=== PATIENT | female | born 1970 | race Caucasian/White ===

== ENCOUNTER 2017-01-03 13:20 | Emergency (ER) | payer OTHER ==
[2017-01-03] MEDS ORDERED: PHENERGAN IM ONE (15:46)
[2017-01-03] MEDS ORDERED: NUBAIN IM ONE (15:46)
[2017-01-03] MEDS ORDERED: BENADRYL IM ONE (17:00)
[2017-01-03] MEDS ORDERED: TORADOL IM ONE (17:00)
--- NOTE | 2017-01-03 17:29 | PROVIDER DOCUMENTATION ---
HPI-Headache <Shakir Foster - Last Filed: 01/03/17 17:28> - General Source: patient - History of Present Illness-Headache Headache Location: reports: global Quality of Pain: reports: aching Severity: reports: mild Onset/Duration: reports: this morning Timing: reports: still present, intermittent Headache Context: reports: nothing Headache History: reports: history of migraines Any recent trauma/injury?: reports: none Headache severity at the maximum: mild Headache Exacerbated by:: reports: nothing Modifying Factors: improves with: nothing Associated Symptoms: reports: headache, nausea, vomiting. denies: short of breath, decreased ability to walk or stand, fainting, dizziness, confusion, chest pain, neck/back pain, fatigue, fever/chills, insomnia, loss of consciousness, muscle spasms, numbness in legs/feet, paresthesia, diaphoretic, ringing in ears, seizures, sleepy, slurred speech, tingling in legs/feet, trouble walking, vision changes, weakness Similar Symptoms Previously?: Yes Recently seen or treated by another doctor?: No <Maritza Mims - Last Filed: 01/03/17 17:34> - General Chief Complaint: Headache Stated Complaint: HEADACHE Time Seen by Provider: 01/03/17 14:50 Allergies/Adverse Reactions: Patient Allergies Allergy/AdvReac Type Severity Reaction Status Date / Time ciprofloxacin [From Cipro] Allergy Severe ANAPHYLAXIS Verified 05/14/16 07:54 ciprofloxacin HCl * Allergy Severe ANAPHYLAXIS Verified 05/14/16 07:54 [From Cipro] Sulfa (Sulfonamide Allergy Severe ANAPHYLAXIS Verified 05/14/16 07:54 Antibiotics) [Sulfa(Sulfonamide Antibiotics)] Home Medications: Home Medication List Medication Instructions Recorded Confirmed Last Taken Type Carbamazepine [Tegretol] 200 mg PO QAM 09/09/12 05/14/16 05/14/16 06:00 History Clonazepam [Klonopin] 1.5 mg PO TID PRN 09/09/12 05/14/16 05/14/16 06:00 History Furosemide [Lasix] 20 mg PO DAILY 09/09/12 05/14/16 05/14/16 06:00 History Gemfibrozil [Lopid] 600 mg PO BID 09/09/12 05/14/16 05/14/16 06:00 History Levothyroxine [Synthroid] 50 microgm PO DAILY 09/09/12 05/14/16 05/14/16 06:00 History Metformin E.r. [Glucophage Xr] 1,000 mg PO HS 09/09/12 05/14/16 05/13/16 19:00 History Metoprolol Succinate E.r. [Toprol 12.5 mg PO DAILY 09/09/12 05/14/16 05/14/16 06 :00 History Xl] PRAVAstatin [Pravachol] 20 mg PO QHS 09/09/12 05/14/16 05/13/16 19:00 History Carbamazepine [Tegretol] 400 mg PO HS 07/13/13 05/14/16 05/13/16 19:00 History Omeprazole [Prilosec] 40 mg PO QPM 02/02/15 05/14/16 05/14/16 06:00 History Aspirin 81 mg PO QAM 05/31/15 05/14/16 05/14/16 06:00 History Bupropion HCl [Wellbutrin Xl] 300 mg PO QAM 05/31/15 05/14/16 05/14/16 06:00 History Calcium Carbonate/Vit D3 [Caltrate 1 each PO BID 05/31/15 05/14/16 05/14/16 06: 00 History 600 + D] Cholecalciferol (Vitamin D3) 2,000 unit PO BID 05/31/15 05/14/16 05/14/16 06:00 History [Vitamin D3] Losartan [Cozaar] 50 mg PO DAILY 05/31/15 05/14/16 05/13/16 19:00 History Mirtazapine [Remeron] 15 mg PO QHS 05/31/15 05/14/16 05/13/16 19:00 History Montelukast Sodium [Singulair] 10 mg PO DAILY 05/31/15 05/14/16 05/14/16 06:00 History Ranitidine HCl [Zantac] 150 mg PO 1200 05/31/15 05/14/16 05/13/16 19:00 History Sucralfate [Carafate] 1 gm PO 4XDAY 05/31/15 05/14/16 05/14/16 06:00 History Topiramate [Topamax] 150 mg PO QHS 05/31/15 05/14/16 05/13/16 19:00 History Tizanidine HCl [Zanaflex] 12 mg PO QHS 08/20/15 05/14/16 05/13/16 19:00 History Cyclobenzaprine [Flexeril] 10 mg PO TID #20 tablet 05/14/16 Unknown Rx Insulin Degludec [Tresiba 54 unit SQ DAILY 05/14/16 05/14/16 05/14/16 06:00 History Flextouch U-100] Meloxicam [Mobic] 7.5 mg PO DAILY PRN PRN #15 tablet 05/14/16 Unknown Rx Prochlorperazine Maleate 5 mg PO Q4H PRN PRN #10 tablet 01/03/17 Unknown Rx [Compazine] - History of Present Illness-Headache Nature of Presenting Problem: Pt is 46 y/o F presents to the ED with migraine. Pt states hx of migraines. Pt states taking meds with no relief. Pt states N and V (Maritza Mims) Review of Systems - Adult - REVIEW OF SYSTEMS - ADULT Constitutional: reports: no symptoms reported Eyes: reports: no symptoms reported Ears, Nose, Mouth & Throat: reports: no symptoms reported Cardiovascular: reports: no symptoms reported Respiratory: reports: no symptoms reported Gastrointestinal: reports: nausea, vomiting. denies: diarrhea Genitourinary: reports: no symptoms reported Musculoskeletal: reports: no symptoms reported Integumentary: reports: no symptoms reported Neurological: reports: headache/migraines (SCHAFER). denies: dizziness/vertigo, syncope Psychiatric: reports: no symptoms reported Endocrine: reports: no symptoms reported Hematologic/Lymphatic: reports: no symptoms reported Allergic/Immunologic: reports: no symptoms reported All Other Systems: Reviewed and Negative <Maritza Mims - Last Filed: 01/03/17 17:34> Past History - Adult - PAST MEDICAL HISTORY-ADULT Major Childhood Illnesses: reports: denies history Cardiovascular: reports: HTN, hyperlipidemia Respiratory: reports: COPD Gastrointestinal: reports: GERD Obstetrical/Gynecological: reports: denies history Genitourinary: reports: denies history Musculoskeletal: reports: denies history Neurological: reports: headaches/migraines Psychiatric: reports: anxiety, depression, psychiatric problems Endocrine/Immune: reports: Diabetes Other Conditions: reports: denies history - PRIOR SURGERIES/PROCEDURES Surgical/Procedure History: reports: appendectomy, cholecystectomy, hysterectomy - IMMUNIZATION STATUS Childhood Immunizations: See Nurse Assessment Flu Vaccine: See Nurse Assessment - FAMILY HISTORY Family History: reviewed, not pertinent <Shakir Foster - Last Filed: 01/03/17 17:28> - PAST MEDICAL HISTORY-ADULT Review of Records: reports: Nursing Assessment Review, Medications Reviewed, Social history reviewed & non-contributory. Major Childhood Illnesses: reports: denies history Cardiovascular: reports: HTN, hyperlipidemia Respiratory: reports: COPD Gastrointestinal: reports: GERD Obstetrical/Gynecological: reports: denies history Genitourinary: reports: denies history Musculoskeletal: reports: denies history Neurological: reports: headaches/migraines Psychiatric: reports: anxiety Endocrine/Immune: reports: Diabetes Other Conditions: reports: denies history - PRIOR SURGERIES/PROCEDURES Surgical/Procedure History: reports: reviewed, not pertinent, appendectomy, cholecystectomy, hysterectomy - IMMUNIZATION STATUS Childhood Immunizations: See Nurse Assessment Flu Vaccine: See Nurse Assessment - FAMILY HISTORY Family History: reviewed, not pertinent - SOCIAL HISTORY Smoking: cigarettes, less than 1 pack/day Provider spent 3-5 mins advising pt. on dangers of tobacco.: Discussed manners to quit use, and f/u contacts for add'l counseling. Substance Use: denies Living Situation: family <Maritza Mims - Last Filed: 01/03/17 17:34> Physical Exam- Neurological - Physical Exam-Neuro Initial Vital Signs Reviewed: Yes General Appearance: appears well, alert, no apparent distress Eye Exam: bilateral eye: normal inspection, PERRL, EOMI HENMT: normocephalic/atraumatic, moist mucous membranes, normal ENT inspection, TMs normal, pharynx normal Head Injury: no evidence of injury Neck: non-tender, full range of motion, supple, normal inspection Respiratory: chest non-tender, lungs clear, normal breath sounds, no pleuratic chest pain, no respiratory distress, no accessory muscle use Cardiovascular: normal peripheral pulses, regular rate, rhythm, no edema, no gallop, no JVD, no murmur Abdominal Exam: normal bowel sounds, non tender, soft, no organomegaly, no pulsatile mass Lymphatic: no adenopathy Extremity: normal range of motion, non-tender, normal gait, normal inspection, no pedal edema, 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 Exam: normal hearing, normal speech, PERRL Coordination/Gait: normal finger to nose, normal gait Motor/Sensory: no motor deficit, no sensory deficit, no pronator drift Neurologic: maintenance team leader II-XII nml as tested, grossly normal, no motor/sensory deficits Integumentary: normal color, normal turgor, warm/dry Psych/Mental Status: normal mood/affect, normal thought content, oriented x 3 <Maritza Mims - Last Filed: 01/03/17 17:34> Progress <Shakir Foster - Last Filed: 01/03/17 17:28> <Maritza Mims - Last Filed: 01/03/17 17:34> - PLAN OF CARE/RESULTS Progress/Plan/Lab Results: Orders Category Date Time Status Diphenhydramine [Benadryl] Med 01/03/17 17:00 Discontinued 25 mg IM NOW ONE Ketorolac [Toradol] Med 01/03/17 17:00 Discontinued 30 mg IM NOW ONE Nalbuphine [Nubain] Med 01/03/17 15:46 Discontinued 20 mg IM NOW ONE Promethazine [Phenergan] Med 01/03/17 15:46 Discontinued 25 mg IM NOW ONE Vital Signs - 24 hr 01/03/17 13:24 Temperature 97.6 F Pulse Rate 65 Respiratory 18 Rate Blood Pressure 125/072 O2 Sat by Pulse 98 Oximetry (Maritza Mims) Departure - Departure Time of Disposition Order: 17:28 Certified Medical Emergency: Urgent <Shakir Foster - Last Filed: 01/03/17 17:28> - Departure Time of Disposition Order: 17:34 Certified Medical Emergency: Emergent <Maritza Mims - Last Filed: 01/03/17 17:34> - Departure DIAGNOSIS: Migraine Qualifiers: Migraine type: unspecified Status migrainosus presence: without status migrainosus Intractability: not intractable Qualified Code(s): G43.909 - Migraine, unspecified, not intractable, without status migrainosus Disposition: HOME 01 Condition: Good Additional Instructions: Take medication as prescribed. Follow up with your primary care provider or neurologist. ED Follow Up Instructions: You have been treated by a care provider in the Emergency Department. These instructions are being provided to you so you can have an understanding of how to care for yourself upon discharge. Upon discharge from the Emergency Department, you are responsible for making arrangements for follow-up care by a physician of your choice. Take all prescribed medications as directed. Return to the Emergency Department immediately for any new or worsening symptoms. You may call the Physician Referral phone number at [phone] to obtain a list of Physicians who are taking new patients. Prescriptions: Prochlorperazine Maleate [Compazine] 5 mg PO Q4H PRN PRN #10 tablet PRN Reason: Headaches Referrals: Nate Samuel MD [Primary Care Provider] - [place] Antoine ZHENG MD [STAFF PHYSICIAN] - Attestation - Physician/ ELSIE Attestation Patient care was provided by Advanced Practice Provider:: Yes Advanced Practice Provider:: Shakir Foster Advanced Practice Provider documentation review:: The Mid-level provider documentation, treatment plan and medical decision making was reviewed by the physician who agrees with all treatment and medical decision making by the MLP. <Shakir Foster - Last Filed: 01/03/17 17:28> - Scribe Verification/Attestation Scribe:: Maritza Mims Acting as Scribe for:: Shakir Foster Scribe documention review:: This chart was documented by a scribe and accurately reflects the service the provider performed and the decisions made by the provider. <Maritza Mims - Last Filed: 01/03/17 17:34> Physician Attestation
[2017-01-03 18:13] VITALS: BP 144/68
== END 2017-01-03 18:12 | disposition home or self-care (01) ==
LOC: P.ED 13:20
DX: G43.909 Migraine, unspecified, not intractable, without status migrainosus (principal); R51 Headache; R11.2 Nausea with vomiting, unspecified; I10 Essential (primary) hypertension; E78.5 Hyperlipidemia, unspecified; J44.9 Chronic obstructive pulmonary disease, unspecified; K21.9 Gastro-esophageal reflux disease without esophagitis; E11.9 Type 2 diabetes mellitus without complications; F41.9 Anxiety disorder, unspecified; F32.9 Major depressive disorder, single episode, unspecified; F17.210 Nicotine dependence, cigarettes, uncomplicated; Z79.82 Long term (current) use of aspirin; Z79.4 Long term (current) use of insulin; Z79.899 Other long term (current) drug therapy; Z71.6 Tobacco abuse counseling
CPT/HCPCS: 96372; J1200; J1885; J2300; J2550

== ENCOUNTER 2017-04-07 11:07 | Inpatient (IN) ==
[2017-04-07 11:45] LABS: MANUAL DIFF NEEDED? NO
[2017-04-07 11:50] LABS: BASO% 0.1 % (0.0-0.8); EOS# 0.08 X1000 (0.0-0.7); EOS% 0.9 % (0.0-10.0); HEMATOCRIT 38.7 % (37.0-47.0); HEMOGLOBIN 13.3 g/dL (12.0-16.0); IMM GRAN# 0.02 X1000 (0.0-0.04); IMM GRAN% 0.2 % (0.0-0.5); LYMPH# 1.99 X1000 (1.2-3.4); LYMPH% 22.9 % (20.5-51.1); MCH 30.6 PG (27-31); MCHC 34.4 g/dL (33-37); MONO# 0.45 X1000 (0.11-0.59); MONO% 5.2 % (1.7-9.3); MPV 11.2 FL (7.4-10.4); NEUT% 70.7 % (42.2-75.2); PLT 240 X1000 (130-400); RBC 4.35 XMIL (4.2-5.4)
[2017-04-07 11:59] LABS: INR 1.04; PTT 28.8 Seconds (22.0-36.0)
[2017-04-07 12:13] LABS: AGAP 13; ALBUMIN 4.3 g/dL (3.5-5.0); ALKALINE PHOSPHATASE 63 U/L (32-104); BUN 5 mg/dL (8-22); CALCIUM 9.5 mg/dL (8.8-10.2); CHLORIDE 104 mmol/L (98-107); CK PROFILE 18 U/L (24-173); COSMO 274; GOT 26 U/L (10-30); GPT 20 U/L (10-36); POTASSIUM 3.8 mmol/L (3.5-5.1); SODIUM 138 mmol/L (136-145); TCO2 21 mmol/L (25-35); TOTAL BILIRUBIN 0.33 mg/dL (0.20-1.00); TOTAL PROTEIN 6.8 g/dL (6.3-8.3)
[2017-04-07] MEDS ORDERED: NS 1,000 ML IV ONE ×2 (13:14→17:07)
[2017-04-07 13:51] LABS: URINE CULTURE NEEDED? NO; URINE MICRO REVIEW NEEDED? NO; URINE SOURCE CLEAN CATCH
[2017-04-07 13:57] LABS: BILIRUBIN URINE NEGATIVE (NEGATIVE); BLOOD URINE NEGATIVE (NEGATIVE); COLOR YELLOW; GLUCOSE URINE NEGATIVE (NEGATIVE); LEUKOCYTES URINE NEGATIVE (NEGATIVE); NITRITE URINE NEGATIVE (NEGATIVE); PROTEIN URINE NEGATIVE (NEGATIVE); TURBIDITY URINE CLEAR (CLEAR); UR EPITHELIAL CELLS <10 /HPF (<10); URINE BACTERIA NEGATIVE /HPF; URINE RBC <10 /HPF (<10); URINE WBC <10 /HPF (<10); UROBILINOGEN URINE NORMAL (NORMAL)
[2017-04-07 14:06] LABS: UR AMPHETAMINES QUAL NONE DETECTED (NONE DETECT); UR BARBITUATES QUAL NONE DETECTED (NONE DETECT); UR BENZODIAZEPIN QUAL NONE DETECTED (NONE DETECT); UR CANNABINOIDS QUAL NONE DETECTED (NONE DETECT); UR COCAINE QUAL NONE DETECTED (NONE DETECT); UR METHADONE QUAL NONE DETECTED (NONE DETECT); UR OPIATES QUAL NONE DETECTED (NONE DETECT); UR OXYCODONE QUAL NONE DETECTED (NONE DETECT); UR PCP QUAL NONE DETECTED (NONE DETECT)
[2017-04-07] MEDS ORDERED: TYLENOL PO ONE (14:33)
--- NOTE | 2017-04-07 15:26 | Diag Imaging Result Doc PS360 ---
EXAM: HEAD/C-SPINE W/O CONTRAST HISTORY: syncope TECHNIQUE: CT of the head without contrast; CT of the cervical spine, dose reduction (clarity.) COMMENT: There is generalized cerebral atrophy. This was also the case on 03/30/2017. There is no evidence of mass effect bleed or abnormal extra-axial fluid collection. There are no acute bony abnormalities. The paranasal sinuses are clear where there are visible. CT of the cervical spine: There is been anterior fusion at C6-7. There is no evidence of prevertebral soft tissue swelling fracture or subluxation. The appearance of the cervical spine has not changed significantly since 03/30/2017. IMPRESSION: No acute intracranial disease. Stable cervical spine. Electronically signed by Pablo Barnes 04/07/2017 3:24 PM
[2017-04-07] MEDS ORDERED: MORPHINE IV PRN ×2 (17:07→18:54)
[2017-04-07] MEDS ORDERED: TYLENOL PO PRN (17:07)
[2017-04-07] MEDS: NICODERM PATCH TD SCH (19:59)
[2017-04-07] MEDS: PROTONIX IV SCH (20:00)
[2017-04-07] MEDS: CITRACAL + D PO SCH (20:00)
[2017-04-07] MEDS: NORCO-5 PO PRN (20:00)
[2017-04-07] MEDS: LOPID PO SCH (20:00)
[2017-04-07] MEDS: SODIUM CHLORIDE 0.9% INJ SCH (20:00)
[2017-04-07] MEDS: PRAVACHOL PO SCH (20:00)
[2017-04-07] MEDS: TOPAMAX PO SCH (20:00)
[2017-04-07] MEDS: KLOR-CON PO SCH (20:01)
[2017-04-07] MEDS: NON-FORMULARY MED PO SCH (20:13)
[2017-04-07] MEDS: KLONOPIN PO PRN (20:13)
--- NOTE | 2017-04-07 20:24 | Diag Imaging Result Doc PS360 ---
EXAM: CHEST-PORTABLE HISTORY: sob TECHNIQUE: AP Portable at 1908 COMMENT: there is no evidence of acute cardiac or pulmonary disease. Compared to 08/20/2015 there is been no significant change. IMPRESSION: Stable chest Electronically signed by Pablo Barnes 04/07/2017 8:22 PM
--- NOTE | 2017-04-07 20:50 | HISTORY AND PHYSICAL ---
CHIEF COMPLAINT: Syncope. HISTORY OF PRESENT ILLNESS: Ms. Noel is a 46-year-old, white female patient who was in her usual state of health this morning. The patient claims she woke up not feeling well. She checked her blood sugar and it was 126. The patient was feeling uneasy. She drank some coffee. Patient claims she vomited. She was feeling dizzy, lightheaded. She checked her blood sugar again and it was 145. The patient was going to the kitchen to get something to drink. The next thing the patient remembers was she was on the floor. According to family member, the patient fell and passed out. She stopped breathing. One of the family members called EMS. She started doing CPR and patient start breathing. Duration is not properly known. May be from many seconds to few minutes. The patient is complaining of chest pain which she described as retrosternal heaviness and pressure like. She did have shortness of breath. The patient denied any diaphoresis. No radiation of pain into the arm. Her risk factors include hyperlipidemia, smoker, surgical menopause, diabetes, patient was also complaining of abdominal pain, nausea, vomiting. The patient does have gastroparesis. She denied any diarrhea, blood or mucus in the stool. No dysuria or hematuria. No vaginal discharge, spotting, bleeding. She does have at times constipation. No major weight loss or weight gain. No heat or cold intolerance. The patient had significant problem with hypoglycemia. She was on Glucophage and insulin. I stopped both of her medicine and lately her blood sugar is doing better. The patient does have multiple episodes of falls. She does have a dull headache. The patient has a history of anxiety, depression, mood disorder, being followed up by a psychiatrist on multiple psychotropic medications. The patient had a fall a few days ago. Complaining of low back pain. No diplopia. Denied any neck stiffness. No joint swelling or redness. No further history available at this time. ALLERGIES: Cipro and sulfa. PAST MEDICAL HISTORY: Diabetes mellitus. It was poorly controlled, but lately patient is more hypoglycemic. Hyperlipidemia. Hypothyroidism. Depression. Bipolar disorder. Anxiety. Gastritis. Gastroparesis. PAST SURGICAL HISTORY: Patient had appendectomy, cholecystectomy, hysterectomy, bilateral breast reduction, wrist surgery, et cetera. PERSONAL HISTORY: . Lives with her . Does smoke. Denied alcohol or substance abuse. The patient is on disability. HOME MEDICATION: Vitamin D. Diclofenac. Lasix. Beta-palak. Robaxin. [place]. Prilosec. Phenergan. Seroquel. Trazodone. Aspirin. Buspar. Caltrate D. Klonopin. Lopid. Synthroid. Singulair. Potassium. Pravachol. Zantac. Topamax. Trintellix. FAMILY HISTORY: Significant for diabetes mellitus, COPD, hypertension, hyperlipidemia. PHYSICAL EXAMINATION: GENERAL: Middle-aged white female patient in mild distress. VITAL SIGNS: In the emergency room, blood pressure was 133/87, pulse 56, respirations 16, temperature 97.7 degrees. In the ER, her heart rate was staying in 40s. HEENT: Head atraumatic, normocephalic. [place] conjunctivae. Anicteric sclerae. Extraocular muscle movement normal. Fundus cannot be penetrated. Good oral hygiene. No tonsillopharyngeal congestion or exudate. Ears and nose benign. NECK: Supple. No JVD, thyromegaly or lymphadenopathy. CHEST: Bibasilar crepitation. No rales. CARDIOVASCULAR: S1 and S2 heard. Bradycardia. No gallop or thrill. ABDOMEN: Soft, globular. Mild epigastric tenderness. No guarding or rigidity. EXTREMITIES: No cyanosis, clubbing. No acute DVT. 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 Crepitation both knee joints. Vague tenderness lumbosacral spine. CONSIDERATION: Patient admitted with syncope. Was She found to have bradycardia. History of diabetes mellitus, hyperlipidemia, multiple psychotropic medications, hypothyroidism. PLAN: Admit the patient. Telemetry monitoring. The patient did have chest pain with multiple risk factors. I am going to get Cardiology consult. Overall plan discussed at length with the patient. Encouraged smoking cessation. Fall precaution. We will try a NicoDerm patch. Pain management. The patient had CT scan of the neck and head done and results reviewed. cc: Nate Samuel MD
[2017-04-07] MEDS: LOVENOX SUBQ SCH (21:25)
[2017-04-08 05:08] LABS: MANUAL DIFF NEEDED? NO
[2017-04-08 05:24] LABS: EOS# 0.06 X1000 (0.0-0.7); EOS% 1.2 % (0.0-10.0); HEMATOCRIT 35.4 % (37.0-47.0); HEMOGLOBIN 11.8 g/dL (12.0-16.0); LYMPH# 1.58 X1000 (1.2-3.4); LYMPH% 30.9 % (20.5-51.1); MCH 29.7 PG (27-31); MCHC 33.3 g/dL (33-37); MCV 89.2 FL (81-99); MONO# 0.29 X1000 (0.11-0.59); MONO% 5.7 % (1.7-9.3); MPV 11.3 FL (7.4-10.4); NEUT% 62.2 % (42.2-75.2); PLT 205 X1000 (130-400); RBC 3.97 XMIL (4.2-5.4)
--- NOTE | 2017-04-08 05:38 | EKG Report ---
Test Performed on : 04/07/2017 1:38:47 PM Test Reason : AMS Blood Pressure : / mmHG Vent. Rate : 053 BPM Atrial Rate : 053 BPM P-R Int : 144 ms QRS Dur : 082 ms QT Int : 426 ms P-R-T Axes : 036 011 259 degrees QTc Int : 399 ms Sinus bradycardia. with sinus arrhythmia. T wave abnormality, consider inferior ischemia Abnormal ECG When compared with ECG of 07-APR-2017 11:09, (Unconfirmed) No significant change was found Unconfirmed Result
--- NOTE | 2017-04-08 05:38 | EKG Report ---
Test Performed on : 04/07/2017 11:09:07 AM Test Reason : No order in [place] Blood Pressure : / mmHG Vent. Rate : 051 BPM Atrial Rate : 051 BPM P-R Int : 158 ms QRS Dur : 078 ms QT Int : 432 ms P-R-T Axes : 015 -03 -71 degrees QTc Int : 398 ms Sinus bradycardia. with sinus arrhythmia. Nonspecific ST and T wave abnormality Abnormal ECG When compared with ECG of 23-AUG-2015 16:13, T wave inversion more evident in Inferior leads T wave inversion now evident in Anterior leads QT has shortened Unconfirmed Result
[2017-04-08 05:52] LABS: AGAP 14; ALBUMIN 3.8 g/dL (3.5-5.0); ALKALINE PHOSPHATASE 52 U/L (32-104); BUN 5 mg/dL (8-22); CALCIUM 8.9 mg/dL (8.8-10.2); CHLORIDE 110 mmol/L (98-107); COSMO 283; GOT 24 U/L (10-30); GPT 21 U/L (10-36); MAGNESIUM 1.7 mg/dL (1.5-2.7); POTASSIUM 3.7 mmol/L (3.5-5.1); SODIUM 143 mmol/L (136-145); TCO2 19 mmol/L (25-35); TOTAL BILIRUBIN 0.32 mg/dL (0.20-1.00); TOTAL PROTEIN 5.9 g/dL (6.3-8.3)
--- NOTE | 2017-04-08 07:20 | PROGRESS NOTE ---
DATE: 04/08/2017 SUBJECTIVELY: Ms. Noel is feeling some better. Dull headache. No typical chest pain or palpitations. Denied any nausea or vomiting. No seizure-type activity. Denied abdominal pain. No dysuria or hematuria. Patient admitted with syncopal episode. She also had some chest pain. OBJECTIVE: Vital Signs: Noted. Neck: Supple. No JVD. Lungs: Bibasilar crepitation. Heart: S1 and S2 heard. Abdomen: Soft, globular. Bowel sounds present. Extremities: No cyanosis, clubbing. No acute DVT. 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 Able to move all 4 limbs. LAB DATA: Done today, hemoglobin 11.8, hematocrit 35.4, WBC count 5.12. Electrolytes are fairly benign. Urine drug screen was negative. CONSIDERATIONS: Syncope: 1. Chest pain. 2. Myocardial infarction, ruled out by negative cardiac isoenzymes. 3. Diabetes mellitus. 4. Her beta palak. He is on hold. The patient had bradycardia. 5. Depression being followed up by psychiatrist, on multiple medications. 6. Gastritis and gastroparesis. We will continue current treatment. 7. Cardiology consult. 8. Echocardiogram. 9. Orthostatic vital signs. PLAN: Overall plan discussed with the patient. She is in agreement. cc: Nate Samuel MD
[2017-04-08] MEDS: WELLBUTRIN XL PO SCH (08:44)
[2017-04-08] MEDS: LOPID PO SCH ×2 (08:45→20:38)
[2017-04-08] MEDS: KLOR-CON PO SCH ×2 (08:45→20:38)
[2017-04-08] MEDS: ASPIRIN PO SCH (08:45)
[2017-04-08] MEDS: CITRACAL + D PO SCH ×2 (08:46→20:38)
[2017-04-08] MEDS: KLONOPIN PO PRN ×2 (08:46→16:04)
[2017-04-08] MEDS: SYNTHROID PO SCH (08:46)
[2017-04-08] MEDS: SINGULAIR PO SCH (08:46)
--- NOTE | 2017-04-08 10:19 | EKG Report ---
Test Performed on : 04/08/2017 06:58:24 AM Test Reason : CP Blood Pressure : / mmHG Vent. Rate : 046 BPM Atrial Rate : 046 BPM P-R Int : 144 ms QRS Dur : 080 ms QT Int : 476 ms P-R-T Axes : 020 -05 -24 degrees QTc Int : 416 ms Sinus bradycardia. Nonspecific T wave abnormality Abnormal ECG When compared with ECG of 07-APR-2017 13:38, Nonspecific T wave abnormality, improved in Lateral leads Confirmed by Elvis VALDEZ, Ricardo Olvera ([id number]) on 04/11/2017 12:37:58 PM
--- NOTE | 2017-04-08 11:00 | PROVIDER DOCUMENTATION ---
This chart was entered by Daniela Fallon Scribe, acting as scribe for Maik Stovall MD. HPI-Syncope/Dizziness - General Chief Complaint: Syncope Stated Complaint: syncope Time Seen by Provider: 04/07/17 11:28 Source: patient, family, EMS Allergies/Adverse Reactions: Patient Allergies Allergy/AdvReac Type Severity Reaction Status Date / Time ciprofloxacin [From Cipro] Allergy Severe ANAPHYLAXIS Verified 03/30/17 16:46 ciprofloxacin HCl * Allergy Severe ANAPHYLAXIS Verified 03/30/17 16:46 [From Cipro] Sulfa (Sulfonamide Allergy Severe ANAPHYLAXIS Verified 03/30/17 16:46 Antibiotics) [Sulfa(Sulfonamide Antibiotics)] Home Medications: Home Medication List Medication Instructions Recorded Confirmed Last Taken Type Clonazepam [Klonopin] 0.5 mg PO TID PRN 09/09/12 04/07/17 04/06/17 History Furosemide [Lasix] 20 mg PO DAILY 09/09/12 04/07/17 04/06/17 History Gemfibrozil [Lopid] 600 mg PO BID 09/09/12 04/07/17 04/06/17 History Levothyroxine [Synthroid] 50 microgm PO DAILY 09/09/12 04/07/17 04/06/17 History Metoprolol Succinate E.r. [Toprol 12.5 mg PO DAILY 09/09/12 04/07/17 04/06/17 History Xl] PRAVAstatin [Pravachol] 20 mg PO QHS 09/09/12 04/07/17 04/06/17 History Aspirin 81 mg PO QAM 05/31/15 04/07/17 04/06/17 History Bupropion HCl [Wellbutrin Xl] 300 mg PO QAM 05/31/15 04/07/17 04/06/17 History Cholecalciferol (Vitamin D3) 1,000 unit PO BID 05/31/15 04/07/17 04/06/17 History [Vitamin D3] Montelukast Sodium [Singulair] 10 mg PO DAILY 05/31/15 04/07/17 04/06/17 History Ranitidine HCl [Zantac] 150 mg PO 1200 05/31/15 04/07/17 04/06/17 History Topiramate [Topamax] 100 mg PO QHS 05/31/15 04/07/17 04/06/17 History Promethazine [Phenergan] 1 tab PO TID 03/04/17 04/07/17 04/06/17 History Quetiapine [Seroquel] 1 tab PO QHS 03/04/17 04/07/17 04/06/17 History Trazodone [Desyrel] 2 tab PO QHS 03/04/17 04/07/17 04/06/17 History Omeprazole 20 mg PO DAILY #20 tablet. 03/13/17 04/07/17 04/06/17 Rx Calcium Citrate/Vitamin D3 1 each PO BID 03/30/17 04/07/17 04/06/17 History [Calcium Citrate - Vit D3 Tab] Diclofenac Sodium 50 mg PO BID #30 tablet. 03/30/17 04/07/17 04/06/17 Rx Methocarbamol [Robaxin] 500 mg PO TID #30 tablet 03/30/17 04/07/17 04/06/17 Rx Potassium Chloride [Klor-Con M20] 20 meq PO BID 03/30/17 04/07/17 04/06/17 History Vortioxetine Hydrobromide 20 mg PO QHS 03/30/17 04/07/17 04/06/17 History [Trintellix] - History of Present Illness-Syncope/Dizzy Nature of Presenting Problem: PT IS A 46YOF PRESENTING TO THE ED C/O SYNCOPE. PTS FAMILY STATES THAT PT STATED SHE FELT FAINT AND STARTED TOWARDS THE SINK AND "FELL OUT" FAMILY WENT OVER TO PT AND WAS UNABLE TO GET HER TO RESPOND SO SHE HIT PT MEDIC ALERT [place] AND HAD EMS ENROUTE. ACCORDING TO THE FAMILY PT WAS NOT BREATHING AND DISPATCH HAD HER START CPR, PTS FAMILY DID CPR FOR SEVERAL MINUTES AND PT WOKE WITH AMS. PTS FAMILY SPOKE FOR HER AND STATED SHE HAS A SCHAFER, NAUSEA, AND CHEST PAIN FROM CPR. PT ACTING THOUGH SHE IS UNABLE TO COMMUNICATE UPON EXAM, PTS RN REPORTED THAT WHEN SHE REQUESTED A URINE SAMPLE PT HAD NO PROBLEM SPEAKING AND TOLD HER "GOOD LUCK COLLECTING A UA BC SHE WASN'T GETTING CATH AND SHE WASN' T GIVING A SAMPLE AT ALL." NO OTHER COMPLAINTS AT THIS TIME If witnessed syncope, by whom?: FAMILY AT BEDSIDE Prior Episodes: reports: recent history Onset/Duration: reports: just prior to arrival Timing: reports: still present, intermittent Position/Activity at time of episode: reports: standing Symptoms prior to episode: reports: headache, lightheaded Duration of preceding symptoms? (mins): 2 Context: reports: lost consciousness, became unresponsive, lost pulse ( QUESTIONABLE) Loss of Consciousness: prolonged (minutes) (2) Location of injury. (If syncope resulted in an injury.): reports: none Current Symptoms: reports: short of breath, weakness, headache Recently Seen Here or By Another Healthcare Provider: No Review of Systems - Adult - REVIEW OF SYSTEMS - ADULT Constitutional: reports: no symptoms reported Eyes: reports: no symptoms reported Ears, Nose, Mouth & Throat: reports: no symptoms reported Cardiovascular: reports: see HPI, chest pain (FROM CPR). denies: heart murmur, palpitations Respiratory: reports: no symptoms reported Gastrointestinal: reports: no symptoms reported Genitourinary: reports: no symptoms reported Musculoskeletal: reports: no symptoms reported Integumentary: reports: no symptoms reported Neurological: reports: see HPI, headache/migraines, syncope. denies: numbness, tremors Psychiatric: reports: see HPI, anxiety, anti-depressant use, depression, emotional problems, panic attacks. denies: suicidal thoughts Endocrine: reports: no symptoms reported Hematologic/Lymphatic: reports: no symptoms reported Allergic/Immunologic: reports: no symptoms reported All Other Systems: Reviewed and Negative Past History - Adult - PAST MEDICAL HISTORY-ADULT Review of Records: reports: Old Records Reviewed, Nursing Assessment Review, Medications Reviewed, Social history reviewed & non-contributory. Major Childhood Illnesses: reports: denies history Cardiovascular: reports: HTN, hyperlipidemia Respiratory: reports: COPD Gastrointestinal: reports: GERD Obstetrical/Gynecological: reports: denies history Genitourinary: reports: denies history Musculoskeletal: reports: denies history Neurological: reports: headaches/migraines Psychiatric: reports: anxiety Endocrine/Immune: reports: Diabetes Other Conditions: reports: denies history - PRIOR SURGERIES/PROCEDURES Surgical/Procedure History: reports: reviewed, not pertinent, appendectomy, cholecystectomy, hysterectomy - IMMUNIZATION STATUS Childhood Immunizations: See Nurse Assessment Flu Vaccine: See Nurse Assessment - FAMILY HISTORY Family History: reviewed, not pertinent - SOCIAL HISTORY Smoking: cigarettes, less than 1 pack/day Provider spent 3-5 mins advising pt. on dangers of tobacco.: Discussed manners to quit use, and f/u contacts for add'l counseling. Substance Use: denies Alcohol Use Frequency: never Living Situation: family Physical Exam-General - PHYSICAL EXAM-ADULT Initial Vital Signs Reviewed: Yes - CONSTITUTIONAL General Appearance: appears well, alert, moderate distress, obtunded - EYES Eyes: PERRL/EOMI, pink conjunctivae - HEAD, EARS, NOSE, MOUTH & THROAT HENMT: normocephalic/atraumatic, moist mucous membranes, normal ENT inspection, TMs normal, pharynx normal - NECK Neck: non-tender, full range of motion, supple, normal inspection - RESPIRATORY Respiratory: lungs clear, normal breath sounds, no respiratory distress, no accessory muscle use, other (PAIN DUE TO FAMILY DOING CPR). negative: chest non -tender, no pleuratic chest pain - CARDIOVASCULAR Cardiovascular: normal peripheral pulses, no edema, no gallop, no JVD, no murmur , bradycardia. negative: regular rate, rhythm - GASTROINTESTINAL (ABDOMEN) Abdominal Exam: normal bowel sounds, non tender, soft, no organomegaly, no pulsatile mass - LYMPHATIC Lymphatic: no adenopathy - MUSCULOSKELETAL Back Exam: normal inspection, no CVA tenderness, no vertebral tenderness Extremity: normal range of motion, no pedal edema, no calf tenderness, normal capillary refill, pelvis stable. 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, grossly normal, no motor/sensory deficits - PSYCHIATRIC Psych/Mental Status: normal mood/affect, normal thought content, normal thought process, oriented x 3 Progress - PLAN OF CARE/RESULTS Progress/Plan/Lab Results: Vital Signs - 8 hr 04/07/17 11:10 04/07/17 11:50 04/07/17 13:08 Temperature 97.7 F Pulse Rate 56 L 55 L Pulse Rate [Sitting] 55 L Pulse Rate [Standing] 84 Pulse Rate [Supine] 46 L Respiratory Rate 16 14 Blood Pressure 133/87 126/87 Blood Pressure [Sitting] 131/88 Blood Pressure [Standing] 114/82 Blood Pressure [Supine] 138/75 O2 Sat by Pulse Oximetry 100 98 Laboratory Results - last 24 hr 04/07/17 04/07/17 04/07/17 11:14 11:20 11:20 WBC 8.69 RBC 4.35 Hgb 13.3 Hct 38.7 MCV 89.0 MCH 30.6 MCHC 34.4 RDW Std Deviation 12.8 Plt Count 240 MPV 11.2 H Immature Gran % (Auto) 0.2 Neut % (Auto) 70.7 Lymph % (Auto) 22.9 Amador % (Auto) 5.2 Eos % (Auto) 0.9 Baso % (Auto) 0.1 Immature Gran # (Auto) 0.02 Neut # (Auto) 6.14 Lymph # (Auto) 1.99 Amador # (Auto) 0.45 Eos # (Auto) 0.08 Baso # (Auto) 0.01 PT INR PTT (Actin FS) Sodium Potassium Chloride Carbon Dioxide Anion Gap BUN Creatinine Estimated GFR/1.73 m2 BUN/Creatinine Ratio Glucose POC Glucose 121 H Calculated Osmolality Calcium Total Bilirubin AST ALT Alkaline Phosphatase Creatine Kinase Troponin T Total Protein Albumin Globulin Albumin/Globulin Ratio Urine Source Urine Color Urine Turbidity Urine pH Ur Specific Caldwell Urine Protein Ur Glucose (Stick) Ur Ketones (Stick) Urine Blood Urine Nitrite Urine Bilirubin Urobilinogen Dipstick Urine Leukocytes Urine WBC (Auto) Urine RBC (Auto) U Epithel Cells (Auto) Urine Bacteria (Auto) Urine Opiates Screen Ur Oxycodone Screen Ur Methadone, Qual Ur Barbiturates Screen Ur Phencyclidine Scrn Ur Amphetamines Screen U Benzodiazepines Scrn Urine Cocaine Screen U Cannabinoids Screen Plasma/Serum Ethyl Alc 04/07/17 04/07/17 04/07/17 11:20 11:20 11:20 WBC RBC Hgb Hct MCV MCH MCHC RDW Std Deviation Plt Count MPV Immature Gran % (Auto) Neut % (Auto) Lymph % (Auto) Amador % (Auto) Eos % (Auto) Baso % (Auto) Immature Gran # (Auto) Neut # (Auto) Lymph # (Auto) Amador # (Auto) Eos # (Auto) Baso # (Auto) PT 11.0 INR 1.04 PTT (Actin FS) 28.8 Sodium 138 Potassium 3.8 Chloride 104 Carbon Dioxide 21 L Anion Gap 13 BUN 5 L Creatinine 0.7 Estimated GFR/1.73 m2 > 60 BUN/Creatinine Ratio 7 Glucose 114 H POC Glucose Calculated Osmolality 274 Calcium 9.5 Total Bilirubin 0.33 AST 26 ALT 20 Alkaline Phosphatase 63 Creatine Kinase 18 L Troponin T < 0.010 Total Protein 6.8 Albumin 4.3 Globulin 2.5 Albumin/Globulin Ratio 1.7 Urine Source Urine Color Urine Turbidity Urine pH Ur Specific Caldwell Urine Protein Ur Glucose (Stick) Ur Ketones (Stick) Urine Blood Urine Nitrite Urine Bilirubin Urobilinogen Dipstick Urine Leukocytes Urine WBC (Auto) Urine RBC (Auto) U Epithel Cells (Auto) Urine Bacteria (Auto) Urine Opiates Screen Ur Oxycodone Screen Ur Methadone, Qual Ur Barbiturates Screen Ur Phencyclidine Scrn Ur Amphetamines Screen U Benzodiazepines Scrn Urine Cocaine Screen U Cannabinoids Screen Plasma/Serum Ethyl Alc 04/07/17 04/07/17 13:32 13:32 WBC RBC Hgb Hct MCV MCH MCHC RDW Std Deviation Plt Count MPV Immature Gran % (Auto) Neut % (Auto) Lymph % (Auto) Amador % (Auto) Eos % (Auto) Baso % (Auto) Immature Gran # (Auto) Neut # (Auto) Lymph # (Auto) Amador # (Auto) Eos # (Auto) Baso # (Auto) PT INR PTT (Actin FS) Sodium Potassium Chloride Carbon Dioxide Anion Gap BUN Creatinine Estimated GFR/1.73 m2 BUN/Creatinine Ratio Glucose POC Glucose Calculated Osmolality Calcium Total Bilirubin AST ALT Alkaline Phosphatase Creatine Kinase Troponin T Total Protein Albumin Globulin Albumin/Globulin Ratio Urine Source CLEAN CATCH Urine Color YELLOW Urine Turbidity CLEAR Urine pH 7.0 Ur Specific [place]dwell 1.000 Urine Protein NEGATIVE Ur Glucose (Stick) NEGATIVE Ur Ketones (Stick) NEGATIVE Urine Blood NEGATIVE Urine Nitrite NEGATIVE Urine Bilirubin NEGATIVE Urobilinogen Dipstick NORMAL Urine Leukocytes NEGATIVE Urine WBC (Auto) <10 Urine RBC (Auto) <10 U Epithel Cells (Auto) <10 Urine Bacteria (Auto) NEGATIVE Urine Opiates Screen NONE DETECTED Ur Oxycodone Screen NONE DETECTED Ur Methadone, Qual NONE DETECTED Ur Barbiturates Screen NONE DETECTED Ur Phencyclidine Scrn NONE DETECTED Ur Amphetamines Screen NONE DETECTED U Benzodiazepines Scrn NONE DETECTED Urine Cocaine Screen NONE DETECTED U Cannabinoids Screen NONE DETECTED Plasma/Serum Ethyl Alc Orders Category Date Time Status ED: Orthostatic Vital Signs (E as directed Care 04/07/17 11:50 Active ALCOHOL BLOOD Stat Lab 04/07/17 11:20 Completed CBC WITH ELECTRONIC DIFF [HEME] Stat Lab 04/07/17 11:20 Completed CK PROFILE [SP CHEM] Stat Lab 04/07/17 11:20 Completed COMPREHENSIVE METABOLIC PANEL [CHEM] Stat Lab 04/07/17 11:20 Completed PROTIME WITH INR [COAG] Stat Lab 04/07/17 11:20 Completed PTT [COAG] Stat Lab 04/07/17 11:20 Completed TROPONIN T Stat Lab 04/07/17 11:20 Completed URINALYSIS W/POSS RFLX CULT-1 [URINALYSIS] Stat Lab 04/07/17 13:32 Completed URINE DRUG SCREEN Stat Lab 04/07/17 13:32 Completed 0.9% Sodium Chloride Inj [Ns] 1,000 ml Med 04/07/17 13:14 Discontinued IV 999 mls/hr Acetaminophen [Tylenol] Med 04/07/17 14:33 Once 500 mg PO NOW ONE EKG [EKG] Stat Ther 04/07/17 11:32 Ordered Result Diagrams: 04/07/17 11:20 04/07/17 11:20 - CONSULTS/PCP/HOSPITALIST Notification #1 *Consult/PCP/Hospitalist*: DR SAMUEL Time Discussed: 14:34 Reason/Comments: CONSULT FOR ADMISSION SYMPTOMATIC BRADYCARDIA Consult Disposition: Admit #2 Consult: DR SAMUEL Time Discussed: 14:36 Reason/Comments: DR SAMUEL WILL ADMIT TO HIS SERVICE FOR OBS Consult Disposition: Admit Departure - Departure Date of Disposition Decision: 04/07/17 Time of Disposition Decision: 14:35 DIAGNOSIS: Symptomatic bradycardia Disposition: ADMITTED INPATIENT 09 Certified Medical Emergency: Emergent Condition: Stable Referrals and Follow-Ups: Nate Samuel MD [Primary Care Provider] - - Critical Care Note This patient required my direct & personal management of CC.: No This chart was documented by the indicated scribe, (Daniela Fallon Scribe) and accurately reflects the services I performed and decisions made by me, Maik Stovall MD, as attested by the provider's signature.
--- NOTE | 2017-04-08 11:25 | CONSULTATION ---
DATE OF CONSULTATION: 04/08/2017 INDICATION FOR CONSULTATION: Syncope. HISTORY OF PRESENT ILLNESS: Ms. Noel is a 46-year-old, white female with a history of multiple medical problems, including diabetes, bipolar disorder, hyperlipidemia, depression. She presented yesterday for complaints of passing out. She apparently was in her usual state of health, got up from the couch to go over to the kitchen and get some water. On walking back, she apparently passed out, but does not recall many of the events around the situation. She said she may have been a little bit lightheaded around that time. Family member was present and felt like she stopped breathing, initiated CPR and called EMS. The patient got chest compressions for a couple of minutes or so, and then ultimately was brought into the ER. In the ER, she had heart rates in the 40s or so in sinus bradycardia. No chest pain occurred at the time of the event, but she is having some discomfort that is reproducible over the sternum. She did have an episode of chest discomfort while up walking in the house that was located in the left lower breast area. There was no radiation and no provokers. PAST MEDICAL HISTORY: 1. Diabetes. 2. Hyperlipidemia. 3. Hypothyroidism. 4. Depression/bipolar/anxiety. 5. Gastritis. 6. Gastroparesis. SOCIAL HISTORY: . Lives with her . No tobacco, no alcohol. FAMILY HISTORY: Significant for diabetes, COPD, hypertension and hyperlipidemia. REVIEW OF SYSTEMS: A 10 system review of systems is negative, except for those things mentioned in HPI. PHYSICAL EXAMINATION: Vital Signs: She is afebrile. Heart rate has ranged anywhere from 44 beats per minute to 68 beats per minute. Blood pressure 134/73. General: She is in no acute distress. HEENT: Oropharynx is moist. Normal dentition. Eye examination shows pink conjunctivae, white sclerae. Neck: Examination shows no obvious thyromegaly or thyroid tenderness. Cardiovascular: She is in a regular rate and rhythm. She has no obvious murmurs. She has no S3. She has no lower extremity edema. Chest: Exam is clear bilaterally. She has no increased work of breathing. Abdomen: Soft, nontender, nondistended. No obvious organomegaly. Skin Exam: Warm and dry throughout without any rashes. Neurological: She is moving all extremities well. Cranial nerves 2-12 are intact without any sensation deficits. PERTINENT DATA: She had a head and C-spine CT demonstrating no acute intracranial disease and stable cervical spine. She had an EKG performed this morning at 0658 hours showing sinus adrian at 46 beats per minute. EKG on April 07 at 1338 hours shows sinus adrian at 53 beats per minute. An EKG at 1109 hours yesterday showed sinus adrian 51 beats per minute. No acute ischemic changes. No signs of significant block. Her laboratory data demonstrated a white count of 5.1, hematocrit 35, platelet count is 205. Sodium is 143, potassium 3.7, BUN 5, creatinine 0.7. Her magnesium level was 1.7. Her albumin is 3.8. Cardiac enzymes are negative. CK's are negative. ASSESSMENT: Syncope. PLAN: The patient is having some occasional chest discomfort. We will proceed with myocardial perfusion imaging. Her echocardiogram was unremarkable. Ultrasound was unremarkable as well. I agree with fluids given that the patient was tilt positive as evidenced by her vital signs. If her nuclear scan is unremarkable, the patient may be discharged home. Would likely recommend proceeding with outpatient heart rate monitoring at home to ensure she is not having any significant bradycardic episodes. Notably Dr. Samuel has stopped the patient's beta-palak, which I agree with at this point. Review of her telemetry does not seem to show any significant arrhythmias. This seems to demonstrate sinus rhythm. cc: MD Nate Santoro MD
[2017-04-08] MEDS: ZANTAC PO SCH (11:39)
[2017-04-08] MEDS: NORCO-5 PO PRN ×2 (11:39→18:27)
[2017-04-08] MEDS ORDERED: KLONOPIN PO PRN (17:36)
[2017-04-08] MEDS: PROTONIX IV SCH (18:26)
[2017-04-08] MEDS: SODIUM CHLORIDE 0.9% INJ SCH (18:27)
--- NOTE | 2017-04-08 18:58 | ECHO REPORT ---
ORDER DATE: 04/08/2017 INTERPRETING PHYSICIAN: Dr. Hooper REQUESTING PHYSICIAN: CLINICAL INDICATIONS: A 46-year-old female with syncope, shortness of breath. M-MODE MEASUREMENTS: Right ventricle: 3.0 cm. Left ventricle end diastole: 4.2 cm. Left ventricle end systole: 2.6 cm. Posterior wall: 0.7 cm. Interventricular septum: 1.2 cm. Left atrium: 3.8 cm. Aortic root: 2.9 cm. SUMMARY OF 2-DIMENSIONAL IMAGING: The left ventricular function is normal. Ejection fraction estimated at 71%. No wall motion abnormality is noted. The right ventricle is borderline enlarged. The aortic valve looks normal. Color flow mapping unremarkable. The mitral valve looks normal. Color flow mapping unremarkable. Pulse wave Doppler of mitral inflow is normal. Tissue Doppler of septal and lateral mitral annulus averages 10 cm per second. There is no diastolic dysfunction. Pulmonary venous flow is normal. The tricuspid valve looks normal with a mild degree of regurgitation. The inferior vena cava is not dilated. Pulmonary systolic pressure estimated at 34 mmHg. The pulmonic valve is unremarkable. There is no pericardial effusion, masses or thrombus. IMPRESSION: In summary, this electrocardiographic study is quite unremarkable. The left ventricular systolic function is normal. Ejection fraction 71%. Normal ventricular chamber size. No diastolic dysfunction. Pulmonary systolic pressure 34 mmHg. No evidence of any significant valvular abnormality. Clinical correlation recommended. cc: MD Nate Payton MD
[2017-04-08] MEDS: PRAVACHOL PO SCH (20:38)
[2017-04-08] MEDS: NICODERM PATCH TD SCH (20:38)
[2017-04-08] MEDS: TOPAMAX PO SCH (20:38)
[2017-04-08] MEDS: LOVENOX SUBQ SCH (20:38)
[2017-04-08] MEDS ORDERED: SEROQUEL PO SCH (21:00)
[2017-04-08] MEDS: NON-FORMULARY MED PO SCH (21:16)
--- NOTE | 2017-04-09 06:49 | PROGRESS NOTE ---
DATE: 04/09/2017 SUBJECTIVE: Ms. Noel is doing better. She denied any fever or chills. No typical chest pain. She does feel weak. No nausea or vomiting. OBJECTIVE: Her vital signs are as noted.Neck: Supple. No JVD. Lungs: Clear. Few basilar crepitations. Heart: S1 and S2 heard. Abdomen: Soft. No distention. Bowel sounds present. Extremities: No cyanosis or clubbing. No acute DVT. WHALE TRAINER: Alert, awake and able to move all 4 limbs. Patient's echocardiogram results reviewed. Cardiology consult noted. ASSESSMENT AND PLAN: The patient admitted with syncope. She did have chest pain. History of hyperlipidemia and hypothyroidism. Patient is on multiple psychiatric medications. Advised her to discuss with her psychiatrist and try to cut back as much as she could. If stress test is negative, plan is to discharge patient home today. Overall, plan discussed at length with the patient. I am going to add small dose of Cozaar for renal protection and also hypertension. Fall precautions. Smoking cessation. Advised her to have follow up with Dr. Foster for outpatient Holter or loupe monitor. cc: Nate Samuel MD
[2017-04-09] MEDS ORDERED: LEXISCAN ONE (07:35)
[2017-04-09] MEDS ORDERED: AMINOPHYLLINE ONE (08:25)
[2017-04-09] MEDS ORDERED: COZAAR PO SCH (09:00)
[2017-04-09] MEDS: KLOR-CON PO SCH (10:14)
[2017-04-09] MEDS: LOPID PO SCH (10:14)
[2017-04-09] MEDS: ASPIRIN PO SCH (10:14)
[2017-04-09] MEDS: WELLBUTRIN XL PO SCH (10:14)
[2017-04-09] MEDS: SYNTHROID PO SCH (10:15)
[2017-04-09] MEDS: CITRACAL + D PO SCH (10:15)
[2017-04-09] MEDS: SINGULAIR PO SCH (10:15)
[2017-04-09 11:08] VITALS: BP 125/65
--- NOTE | 2017-04-09 13:28 | Diag Imaging Result Document ---
PROCEDURE NAME: MYOCARDIAL PERF SCAN, STR/REST - 04/08/2017 INDICATIONS: Chest pain, possible syncope. PROCEDURES PERFORMED: 1. Lexiscan stress. 2. Two-day stress/rest myocardial perfusion imaging. PROCEDURE IN DETAIL: Ms. Noel initially had a resting study on 04/08/2017 with injection of 30.2 mCi of technetium-99m sestamibi with the usual imaging protocol utilized. Subsequently, was brought back in and had a Lexiscan stress. At peak stress, was injected with 30.8 mCi of technetium-99m sestamibi with the usual imaging protocol utilized. FINDINGS: LEXISCAN STRESS RESULTS: 1. Baseline EKG shows sinus rhythm. 2. Lexiscan stress not demonstrate any clear evidence of ischemic-related EKG changes or significant arrhythmias. PERFUSION IMAGING RESULTS: 1. No evidence of abnormal extracardiac uptake. 2. TID ratio 0.88. 3. Perfusion imaging demonstrates what appears to be normal homogeneous uptake of radiotracer throughout the myocardial segments. 4. Normal ejection fraction of 76% on stress, 75% on rest. End-diastolic volume of 88 and systolic volume 21. Normal wall motion. cc: Andrez Foster MD
[2017-04-09] MEDS: ZANTAC PO SCH (13:59)
== END 2017-04-09 15:02 | disposition home or self-care (01) ==
LOC: ED 11:07 → 3S 16:13
PROVIDERS: ADMIT Internal Medicine; ATTEND Internal Medicine

== ENCOUNTER 2017-04-16 17:22 | Inpatient (IN) ==
[2017-04-16] MEDS ORDERED: ASPIRIN PO STA (17:37)
--- NOTE | 2017-04-16 17:51 | ED EKG INTERP ---
This chart was entered by Cheri Berman Scribe, acting as scribe for Nancy Ruiz MD. EKG Interpretation - EKG Time of EKG reading by physician:: 17:32 EKG Read and Signed by:: Nancy Ruiz EKG Interpretation (*Must complete 3 of following elements*): Abnormal Rate: 55 Rhythm: SINUS CANDACE W/ SINUS ARRHYTHMIA [place]: normal QRS: normal [place] Interval: normal ST Wave: non-specific ST changes This chart was documented by the indicated scribe, (Cheri Berman Scribe) and accurately reflects the services I performed and decisions made by Joseph miranda Wenli X, MD, as attested by the provider's signature.
[2017-04-16 18:17] LABS: MANUAL DIFF NEEDED? NO
[2017-04-16 18:22] LABS: BASO% 0.2 % (0.0-0.8); EOS# 0.05 X1000 (0.0-0.7); EOS% 0.5 % (0.0-10.0); HEMATOCRIT 36.4 % (37.0-47.0); HEMOGLOBIN 12.4 g/dL (12.0-16.0); IMM GRAN# 0.03 X1000 (0.0-0.04); IMM GRAN% 0.3 % (0.0-0.5); LYMPH# 2.28 X1000 (1.2-3.4); LYMPH% 24.6 % (20.5-51.1); MCH 30.4 PG (27-31); MCHC 34.1 g/dL (33-37); MCV 89.2 FL (81-99); MONO# 0.75 X1000 (0.11-0.59); MONO% 8.1 % (1.7-9.3); MPV 11.4 FL (7.4-10.4); NEUT% 66.3 % (42.2-75.2); PLT 220 X1000 (130-400); RBC 4.08 XMIL (4.2-5.4)
[2017-04-16 18:29] LABS: INR 1.02; PROTIME 10.7 Seconds (9.2-11.7); PTT 24.9 Seconds (22.0-36.0)
[2017-04-16 18:41] LABS: AGAP 15; ALBUMIN 4.6 g/dL (3.5-5.0); ALKALINE PHOSPHATASE 64 U/L (32-104); BUN 6 mg/dL (8-22); CALCIUM 9.5 mg/dL (8.8-10.2); CHLORIDE 100 mmol/L (98-107); CK PROFILE 23 U/L (24-173); COSMO 274; GOT 20 U/L (10-30); GPT 36 U/L (10-36); MAGNESIUM 1.8 mg/dL (1.5-2.7); POTASSIUM 3.2 mmol/L (3.5-5.1); SODIUM 137 mmol/L (136-145); TCO2 22 mmol/L (25-35); TOTAL BILIRUBIN 0.23 mg/dL (0.20-1.00)
--- NOTE | 2017-04-16 20:41 | Diag Imaging Result Doc PS360 ---
EXAM: CHEST-2 VIEWS INDICATION: CP TECHNIQUE: 2 views COMPARISON: 04/07/2017 FINDINGS: The lungs are grossly clear. There is no discrete pleural fluid collection or pneumothorax. The cardiomediastinal silhouette and central vasculature are grossly unremarkable. IMPRESSION: No evidence of acute pathology by plain radiograph. Electronically signed by Mendel Boyd 04/16/2017 8:39 PM
[2017-04-16] MEDS ORDERED: KLOR-CON PO ONE (23:17)
[2017-04-17] MEDS ORDERED: NS 1,000 ML IV SCH (00:51)
[2017-04-17] MEDS ORDERED: PNEUMOVAX 23 IM ONE (02:14)
--- NOTE | 2017-04-17 04:37 | HISTORY AND PHYSICAL ---
PRIMARY CARE PHYSICIAN: Nate Samuel MD CHIEF COMPLAINT: Dizziness and low heart rate. HISTORY OF PRESENTING ILLNESS: This is a 46-year-old female with a history of hypertension, diabetes mellitus type 2 and hyperlipidemia, had presented to the emergency department with complaint of having low heart rate and feeling dizzy. The patient apparently was admitted several weeks ago for similar symptoms and had a thorough workup and was evaluated by Cardiology with a recommendation for possible outpatient loop monitor. However, she states that her appointment was sometime in May and she developed symptoms of nearly passing out and feeding dizzy. She was evaluated in the ER. She was still bradycardic and due to her presenting symptoms, it was thought that we would place in her for observation and further evaluation and management. At time of my examination, she had denied any headache, visual changes, fevers, chills, nausea, vomiting, diarrhea, shortness of breath, hemoptysis, melena or weight changes. Complained of feeling kind of dizzy. PAST MEDICAL HISTORY: Includes hypertension, diabetes mellitus type 2, GERD, hyperlipidemia. PAST SURGICAL HISTORY: Back surgery, neck surgery, sinus surgery, wrist surgery, bilateral knee surgery, hysterectomy, breast reduction. ALLERGIES: Cipro and sulfa. CURRENT MEDICATIONS: Listed in the MAR. SOCIAL HISTORY: She is a former smoker. Quit about 2 weeks ago. No history of alcohol or illicit drug use. FAMILY HISTORY: No history of coronary disease. REVIEW OF SYSTEMS: Twelve point review of system is listed as in the HPI. Other systems negative. PHYSICAL EXAMINATION: GENERAL: Cooperative, friendly female. She is resting comfortably now. VITAL SIGNS: Temperature 97.6 degrees, pulse 51, respiration 14, blood pressure 160/97. HEENT: Atraumatic, normocephalic. Extraocular movements intact. PERRLA. NECK: Supple. CHEST: Clear to auscultation. CARDIOVASCULAR: Regular rhythm. ABDOMEN: Soft, nontender. Positive bowel sounds. EXTREMITIES: No edema. NEURO: She is awake, alert, oriented x3. : No bladder distention. SKIN: Warm. LABORATORIES AND STUDIES: WBC 9.27, hemoglobin 12.4, hematocrit 36.4, platelets 220,000. Sodium 137, potassium 3.2, chloride 100, CO2 22, BUN is 6, creatinine 0.8, glucose 145. ASSESSMENT: A 46-year-old female with a history of hypertension, diabetes mellitus type 2 and hyperlipidemia, presented to the emergency department with complaint of dizziness and nearly passing out. She was admitted previously for similar symptoms. However, she developed recurrent symptoms again and we will place him for observation for further evaluation and management. ASSESSMENT: 1. Near syncope. 2. Hypertension. 3. Diabetes mellitus type 2. PLAN: 1. We will admit patient to medical floor with telemetry. 2. Check orthostatic blood pressure and pulse. 3. We will hold any beta blockers she is on. 4. Continue with gentle hydration. 5. Consult Cardiology. 6. We will monitor blood pressure closely. 7. Put patient on sliding scale insulin regimen and monitor her blood glucose. 8. We will put patient on DVT prophylaxis with SCD. 9. We will resume her home medication. 10. We will continue to follow and reassess. cc: Mu Simon MD
[2017-04-17] MEDS: SYNTHROID PO SCH (08:28)
[2017-04-17] MEDS: SINGULAIR PO SCH (08:28)
[2017-04-17] MEDS: ASPIRIN PO SCH (08:28)
[2017-04-17] MEDS: KLOR-CON PO SCH ×2 (08:28→20:17)
[2017-04-17] MEDS: COZAAR PO SCH (08:28)
[2017-04-17] MEDS: WELLBUTRIN XL PO SCH (08:28)
[2017-04-17] MEDS: CALTRATE 600 + D PO SCH ×2 (08:28→20:17)
[2017-04-17] MEDS: LOPID PO SCH ×2 (08:28→20:17)
[2017-04-17] MEDS: ZOFRAN IV PRN ×2 (10:26→20:48)
[2017-04-17] MEDS: KLONOPIN PO PRN (10:26)
--- NOTE | 2017-04-17 13:40 | PROGRESS NOTE ---
DATE: 04/17/2017 SUBJECTIVE: Seeing the patient in Dr. Samuel's absence. She does state she had some chest pains and has had some nausea and epigastric discomfort, near syncope episode. Had bradycardia on her prior admission recently in the last week or so and was evaluated by Dr. Foster with negative nuclear medicine scan and echocardiogram. Patient does have risk factors for coronary artery disease to include smoking and obesity and hypertension. OBJECTIVE: Afebrile, pulse 53-58, respirations 16, blood pressure 134/79.CV: Bradycardia. Regular rhythm. Lungs: CTA. Abdomen: Mild epigastric tenderness. Extremities: No calf tenderness, cords or edema. Neuro: Nonfocal. EKG sinus bradycardia. PERTINENT LABORATORIES: Showed a total CK 23, troponin less than 0.01. ProBNP 353. Potassium was low at 3.2 which she was repleted with oral potassium. Creatinine 0.8, glucose 145. White count 9.2, hemoglobin 12.4, platelets 220,000. D-dimer 0.19. PTT and INR and PTT are normal. Chest x-ray, normal. ASSESSMENT: 1. Chest pain. 2. Presyncope. 3. Bradycardia persistent. 4. Hypertension. 5. Obesity. 6. Tobacco abuse number. 7. Type 2 diabetes mellitus. 8. GERD. 9. Hyperlipidemia. 10. Bipolar disorder. 11. Hypothyroidism. PLAN: Continue present medications as ordered last evening. Dr. Kelly is seeing the patient in consultation and plans on additional studies from a Cardiology standpoint. In the meantime, I will place her on nitroglycerin paste, morphine, continue her aspirin. Notably we cannot use beta blockers due to her bradycardia. Continue Zantac and Zofran as needed for nausea, vomiting. Continue PPI as well in the form of omeprazole. Repeat thyroid function tests in the morning with CBC and BMP. cc: MD Nate Dickey MD
[2017-04-17] MEDS: ZANTAC PO SCH (14:02)
--- NOTE | 2017-04-17 15:37 | CONSULTATION ---
DATE OF CONSULTATION: 04/17/2017 IMPRESSION: 1. Episode of left-sided chest discomfort with associated lightheadedness. Consider possible angina, particularly in light of patient's coronary risk profile. Recent stress myocardial perfusion study negative. 2. Recent admission a week or so ago for syncope. Noninvasive workup negative, including echocardiography and Lexiscan sestamibi study. 3. Chronic cigarette use, recently discontinued. 4. Diabetes mellitus type 2. 5. Hypertension. 6. Hypercholesterolemia. 7. Obesity. RECOMMENDATIONS: 1. In light of patient's recent chest symptoms and significant coronary risk profile, favor definitive evaluation with coronary angiography to rule out significant coronary obstructive lesions. The rationale for this approach was discussed with the patient along with potential hazards. 2. In the interim, medical management for coronary atherosclerosis. HISTORY: This 46-year-old, white female, with past history of recent syncopal episode, diabetes mellitus, hypertension, hypercholesterolemia, and chronic cigarette use was admitted through the emergency room after an episode of chest discomfort. She relates that she was in the nail salon just having had her nails done. She started producing left chest pressure with radiation to the left arm. She also had some associated lightheadedness. Discomfort lasted for more than 30 minutes. She did not have syncope, but she did have lightheadedness. She contacted Dr. Foster's office and was referred to the emergency room. She was noted to have sinus bradycardia. Her chest symptoms had already improved. She was subsequently admitted for further workup. She was just hospitalized here a week or so ago for syncope. Noninvasive cardiac workup was done at that time, including Lexiscan sestamibi study which was negative for inducible ischemia. She has not had such discomfort like this before, although she has had other atypical chest pain in the past. PAST MEDICAL HISTORY: 1. Diabetes mellitus. 2. Hyperlipidemia. 3. Hypothyroidism. 4. Hypertension. 5. Depression/bipolar/anxiety. 6. Gastritis. 7. Gastroparesis. 8. She has had multiple surgical procedures, including breast reduction surgery, hysterectomy, appendectomy, cholecystectomy, two sinus procedures, left knee arthroscopic procedure, right knee arthroscopic procedure, left wrist fracture repair, right wrist fracture repair, removal of lymph node from right side of neck which proved to be benign. Unspecified back surgery and unspecified neck surgery. MEDICATIONS: Prior to admission as listed. SOCIAL HISTORY: She quit smoking about a week ago. She has smoked 1-1/2 pack of cigarettes per day in the past, but cut down 6 months ago to a 1/2 pack of cigarettes per day and a week or so ago discontinued cigarettes altogether. She does not use alcohol. FAMILY HISTORY: Negative for premature coronary disease. REVIEW OF SYSTEMS: Pulmonary: Negative. Gastrointestinal: Negative. Constitutional: Negative. The remainder of the review of systems negative/noncontributory beyond history of present illness with 14 total system reviewed. PHYSICAL EXAM: General: This is an obese, middle-aged female in no distress. Vital Signs: As recorded are stable. HEENT: Extraocular movements intact. Mucous membranes are moist. Neck: Supple. There is no jugular venous distention and no carotid bruits. Chest: Clear to auscultation. Cardiac Exam: Reveals a regular rate and rhythm without appreciable murmur or gallop. Abdomen: Soft, nontender. Bowel sounds normal. Extremities: Without edema. Neurologic Exam: Reveals her to be alert, fully oriented. Speech is fluent. Moves all 4 extremities equally well. Skin: Warm and dry. PERTINENT DATA: Twelve lead EKG demonstrates sinus bradycardia and nonspecific T-wave abnormality. cc: MD Nate Andujar MD
[2017-04-17] MEDS: NITROGLYCERIN TOP SCH ×2 (16:13→17:36)
[2017-04-17] MEDS: MORPHINE IV PRN (17:36)
[2017-04-17] MEDS: DESYREL PO SCH (20:17)
[2017-04-17] MEDS: TOPAMAX PO SCH (20:17)
[2017-04-17] MEDS: PRAVACHOL PO SCH (20:17)
[2017-04-17] MEDS: SEROQUEL PO SCH (20:18)
[2017-04-17] MEDS: VORTIOXETINE HYDROBROMIDE PO SCH (20:36)
[2017-04-18] MEDS: NITROGLYCERIN TOP SCH ×4 (02:09→19:01)
[2017-04-18 03:40] LABS: MANUAL DIFF NEEDED? NO
[2017-04-18 03:48] LABS: BASO% 0.3 % (0.0-0.8); EOS# 0.08 X1000 (0.0-0.7); EOS% 1.3 % (0.0-10.0); HEMATOCRIT 35.7 % (37.0-47.0); HEMOGLOBIN 11.8 g/dL (12.0-16.0); LYMPH# 2.12 X1000 (1.2-3.4); MCH 29.7 PG (27-31); MCHC 33.1 g/dL (33-37); MCV 89.9 FL (81-99); MONO% 8.3 % (1.7-9.3); MPV 11.3 FL (7.4-10.4); NEUT% 55.1 % (42.2-75.2); PLT 198 X1000 (130-400); RBC 3.97 XMIL (4.2-5.4)
[2017-04-18 04:29] LABS: AGAP 12; BUN 7 mg/dL (8-22); CALCIUM 10.3 mg/dL (8.8-10.2); CHLORIDE 110 mmol/L (98-107); COSMO 291; POTASSIUM 4.1 mmol/L (3.5-5.1); SODIUM 146 mmol/L (136-145); TCO2 24 mmol/L (25-35)
[2017-04-18] MEDS: PRILOSEC PO SCH (06:18)
[2017-04-18] MEDS: SYNTHROID PO SCH (06:18)
[2017-04-18] MEDS: ASPIRIN PO SCH (08:26)
[2017-04-18] MEDS: CALTRATE 600 + D PO SCH ×2 (08:26→22:28)
[2017-04-18] MEDS: LOPID PO SCH ×2 (08:26→22:28)
[2017-04-18] MEDS: WELLBUTRIN XL PO SCH (08:26)
[2017-04-18] MEDS: SINGULAIR PO SCH (08:26)
[2017-04-18] MEDS: COZAAR PO SCH (08:26)
[2017-04-18] MEDS: KLOR-CON PO SCH ×2 (08:26→22:27)
[2017-04-18 08:51] LABS: FREE T4 0.88 ng/dL (0.93-1.70)
--- NOTE | 2017-04-18 10:30 | PROGRESS NOTE ---
DATE: 04/18/[address] Samuel. SUBJECTIVE: The patient is stable. She does complain of some chest discomfort despite the nitroglycerin. OBJECTIVE: CV: Bradycardia. Regular rhythm. Lungs: CTA. Extremities: No calf tenderness, cords, or edema. LAB DATA: Shows cardiac enzymes and troponin remain negative. TSH 0.99, free T4 0.88. Blood sugar 161, sodium 146, potassium 4.1, chloride 110, CO2 24, BUN 7, creatinine 0.8. White count 6.06, hemoglobin 11.8, platelets 198,000. ASSESSMENT: 1. Chest pain. Atypical but with numerous risk factors. 2. Recent presyncope. 3. Bradycardia, persistent. 4. Hypertension. 5. Obesity. 6. Tobacco abuse. 7. Type 2 diabetes mellitus. 8. Gastroesophageal reflux disease. 9. Hyperlipidemia. 10. Bipolar disorder. 11. Hypothyroidism. PLAN: Continue present treatments with Dr. Kelly, leaning toward arteriogram tomorrow I understand. This is certainly reasonable in light of her prominent risk factors and recurring admissions to the hospital. cc: MD Nate Dickey MD
[2017-04-18] MEDS: MORPHINE IV PRN ×3 (11:34→22:26)
[2017-04-18] MEDS: ZOFRAN IV PRN ×3 (11:34→22:27)
[2017-04-18] MEDS: ZANTAC PO SCH (12:14)
[2017-04-18] MEDS: KLONOPIN PO PRN (12:19)
--- NOTE | 2017-04-18 12:33 | PROGRESS NOTE ---
DATE: 04/18/2017 SUBJECTIVE: Patient continues with episodic atypical left-sided chest discomfort. She denies dyspnea. OBJECTIVE: Vital Signs: Blood pressure 138/80, heart rate 56 with ECG monitor showing sinus bradycardia, oxygen saturation 99% on room air. Orthostatic blood pressure showed no significant drop in blood pressure and appropriate increase in heart rate as patient stands. Neck: There is no significant jugular venous distention. Chest: Clear to auscultation. Cardiac Exam: Reveals a regular rate and rhythm without appreciable murmur or gallop. There is no evidence of peripheral edema. LABORATORY DATA: Includes initial troponin less than 0.01. Followup troponin less than 0.01. Third troponin less than 0.01. D-dimer 0.19. IMPRESSIONS: 1. Episodic left-sided chest discomfort. Patient initially had lightheadedness but no syncope. Consider possible angina, particularly in light of patient's significant coronary risk profile. Recent stress myocardial perfusion study negative. 2. Recent admission for syncope with negative noninvasive cardiac workup. 3. Chronic cigarette use, recently discontinued. 4. Type 2 diabetes mellitus. 5. Hypertension. 6. Hypercholesterolemia. 7. Obesity. 8. Bipolar disorder. RECOMMENDATIONS: Favor pursuit of definitive evaluation with left heart catheterization, selective coronary angiography. The rationale for this approach was discussed with the patient and her family including potential hazards. Patient wished to proceed. cc: MD Nate Andujar MD
[2017-04-18] MEDS ORDERED: DULCOLAX PR ONE (18:51)
[2017-04-18] MEDS: DESYREL PO SCH (22:27)
[2017-04-18] MEDS: TOPAMAX PO SCH (22:27)
[2017-04-18] MEDS: SEROQUEL PO SCH (22:28)
[2017-04-18] MEDS: PRAVACHOL PO SCH (22:28)
[2017-04-18] MEDS: VORTIOXETINE HYDROBROMIDE PO SCH (22:29)
[2017-04-19] MEDS: NITROGLYCERIN TOP SCH ×3 (00:12→11:49)
[2017-04-19] MEDS: ZOFRAN IV PRN (05:20)
[2017-04-19] MEDS: MORPHINE IV PRN ×3 (05:21→18:34)
--- NOTE | 2017-04-19 05:28 | EKG Report ---
Test Performed on : 04/18/2017 06:06:43 AM Test Reason : CP Blood Pressure : / mmHG Vent. Rate : 054 BPM Atrial Rate : 054 BPM P-R Int : 146 ms QRS Dur : 078 ms QT Int : 432 ms P-R-T Axes : 033 010 -10 degrees QTc Int : 409 ms Sinus bradycardia. with sinus arrhythmia. Otherwise normal ECG When compared with ECG of 16-APR-2017 17:32, (Unconfirmed) No significant change was found Confirmed by Elvis VALDEZ, Ricardo Olvera ([id number]) on 04/19/2017 7:57:38 AM
--- NOTE | 2017-04-19 05:46 | EKG Report ---
Test Performed on : 04/16/2017 5:32:08 PM Test Reason : cp/low hrt rate Blood Pressure : / mmHG Vent. Rate : 055 BPM Atrial Rate : 055 BPM P-R Int : 138 ms QRS Dur : 076 ms QT Int : 442 ms P-R-T Axes : 017 007 -30 degrees QTc Int : 422 ms Sinus bradycardia. with sinus arrhythmia. Nonspecific ST and T wave abnormality Abnormal ECG When compared with ECG of 08-APR-2017 06:58, No significant change was found Unconfirmed Result
[2017-04-19] MEDS: SYNTHROID PO SCH (06:07)
[2017-04-19] MEDS: PRILOSEC PO SCH (06:07)
--- NOTE | 2017-04-19 07:01 | PROGRESS NOTE ---
DATE: 04/19/2017 SUBJECTIVE: A 46-year-old, white, female patient admitted with symptomatic bradycardia. Patient had vague chest pain, near syncopal episode. This is her 2nd admission with similar symptoms. Her stress test was negative. The patient is scheduled to have arteriogram today. She denied any fever or chills. The patient does have mild abdominal pain. The patient does have gastroparesis. The patient is doing fair. At times, nausea. No vomiting. No major hypoglycemic episode. Her blood sugar results reviewed. No dysuria or hematuria. Admission history, physical, and cardiology consult reviewed. OBJECTIVE: Vital Signs: Vital signs noted. Neck: Supple. No JVD. Lungs: Bilateral good air entry present. CVS: S1 and S2 heard. Abdomen: Soft, globular. Bowel sounds present. DEMOLITION HAMMER OPERATOR: Alert, awake. Able to move all 4 limbs. CONSIDERATION: 1. Symptomatic bradycardia. 2. Diabetes mellitus. 3. Hypothyroidism. 4. Hyperlipidemia. 5. Depression, on multiple medications. PLAN: The patient is scheduled to have a cardiac catheterization today. I discussed with the patient about decreasing her antidepressants at length. After reviewing cardiac catheterization results, we will make necessary recommendations. Lab data done yesterday noted. Hemoglobin 11.8, hematocrit 35.7. Electrolytes were fairly benign. Cardiac isoenzymes negative. TSH and free T4 results reviewed. Overall plan discussed with the patient and she is in agreement. cc: Nate Samuel MD
[2017-04-19] MEDS ORDERED: HEPARIN 1000 UNITS/NS 1,000 UNIT/500 ML IV.SOLN ONE ×2 (08:32)
[2017-04-19] MEDS: ASPIRIN PO SCH (10:00)
[2017-04-19] MEDS ORDERED: VERSED ONE (10:14)
[2017-04-19] MEDS ORDERED: DEMEROL ONE ×2 (10:14→10:41)
[2017-04-19] MEDS ORDERED: CLAVE TWINSITE 32 IN 11959 ONE (10:15)
[2017-04-19] MEDS ORDERED: NS 1,000 ML ONE (10:15)
[2017-04-19] MEDS ORDERED: CLAVE PUMP SET NO FILTER 12260 ONE (10:15)
[2017-04-19] MEDS ORDERED: NITROGLYCERIN ONE (10:26)
--- NOTE | 2017-04-19 11:39 | CARDIAC CATH REPORT ---
DATE: 04/19/2017 PROCEDURES PERFORMED: 1. Left heart catheterization. 2. Selective coronary angiogram. 3. Left ventriculogram. 4. Opacification of right femoral artery with deployment of 6-Zimbabwean Angio-Seal device. 5. Insertion of a 5-Zimbabwean sheath in the left femoral vein. REFERRING PHYSICIANS: Dr. Kelly and Dr. Samuel HISTORY OF PRESENT ILLNESS: This is a 46-year-old female presenting with recurrent chest pain, syncope, multiple risk factors for coronary heart disease. Dr. Kelly assessed the patient over the weekend and recommended a left heart catheterization. The benefits, risks and complications of the procedure were explained to her in detail. She understood and requested to proceed. DESCRIPTION OF PROCEDURE: The patient came into the cardiac pharmaceutical laboratory technician in the fasting state. She was noted to be bradycardic. The patient received a total of 100 mg of Demerol given in 4 divided doses for sedation. Because of the persistent bradycardia, I chose to insert a 5-Zimbabwean sheath into the right femoral vein by following the modified Seldinger technique to have access in case of need for symptomatic bradycardia to deploy a temporary transvenous pacemaker. Then a 6-Zimbabwean was inserted in the right femoral artery by following the modified Seldinger technique. The coronary artery was opacified with 6-Zimbabwean left Michelle and right Michelle 4 catheter. Thereafter using the right Michelle catheter, the aortic valve was negotiated. Left ventricular pressure was determined. Left ventriculogram was performed by hand injection in the 60 degree UZBEK projection and 30 degree GARSIA projection. At the end of the procedure, the right femoral artery was opacified and Angio-Seal device was deployed. The venous sheath was removed manually. Hemostasis was accomplished by hand compression. SUMMARY OF HEMODYNAMIC FINDINGS: Central aortic pressure was 162/75. Left ventricular pressure was 170/18. Post LV gram was 174/17. Final central aortic pressure was 180/80. This indicates systemic hypertension. SUMMARY OF ANGIOGRAPHIC FINDINGS: 1. Left main coronary artery. The left main coronary artery arises from the left coronary sinus of Valsalva in a normal fashion. It is anatomically normal and divides into the LAD and circumflex. 2. Left anterior descending coronary artery. This vessel appears to be anatomically normal. It gives rise to a proximal diagonal branch which is free of obstruction. It gives rise to several septal branches and continues down to the anterior interventricular groove, gives rise to an additional tiny diagonal, wraps around the apex of the left ventricle as a normal vessel. 3. Circumflex coronary artery. This vessel is nondominant. It basically gives rise to 2 branches, 1 is a lateral vessel that is normal and then the other one is a terminal AV branch which is small and free of obstruction. 4. Right coronary artery. The right coronary artery is a dominant vessel, small in caliber. It gives rise to sinus kavon branch, acute marginal branch. Distally it gives rise to the posterior descending vessel and the AV branch. The right coronary artery is anatomically normal. LEFT VENTRICULOGRAM: Left ventriculogram in the 30 GARSIA projection and 60 degree UZBEK projection reveals normal left ventricular contractility. Ejection fraction is estimated at 60%. No wall motion abnormality noted. OPACIFICATION OF RIGHT FEMORAL ARTERY: The right femoral artery is normal and free of obstruction. Angio-Seal device was deployed successfully. CONCLUSIONS: 1. Systemic hypertension. 2. No diastolic dysfunction. 3. Normal epicardial coronary arteries. 4. Normal left ventricular systolic function. 5. No aortic stenosis. No mitral regurgitation. 6. Unremarkable right femoral artery with deployment of 6-Zimbabwean Angio-Seal device. 7. Persistent bradycardia with no need for temporary pacemaker, as the patient tolerated this procedure well. RECOMMENDATIONS: The patient will be managed by Dr. Kelly and Dr. Samuel. Her bradycardia might be secondary to pharmacologic effect of multiple psychiatric medications. She may need an implantable loop recorder. Followup with her primary physicians. cc: MD Nate Payton MD
[2017-04-19] MEDS: WELLBUTRIN XL PO SCH (11:49)
[2017-04-19] MEDS: COZAAR PO SCH (11:50)
[2017-04-19] MEDS: ZANTAC PO SCH (11:50)
[2017-04-19] MEDS: KLONOPIN PO PRN ×2 (11:50→16:28)
[2017-04-19] MEDS: SINGULAIR PO SCH (11:50)
[2017-04-19] MEDS: KLOR-CON PO SCH (12:27)
[2017-04-19] MEDS: CALTRATE 600 + D PO SCH (12:27)
[2017-04-19] MEDS: LOPID PO SCH (12:28)
--- NOTE | 2017-04-19 14:16 | PROGRESS NOTE ---
DATE: 04/19/2017 SUBJECTIVE: The patient denies chest discomfort or dyspnea. OBJECTIVE: Vital signs: Blood pressure 159/80, heart rate 65 and regular. Oxygen saturation 98% on room air. Neck: There is no significant jugular venous distention. Cardiac exam: Reveals a regular rate and rhythm without appreciable murmur or gallop. There is no evidence of peripheral edema. Cardiac catheterization/coronary angiography demonstrates no significant coronary obstructive lesions. IMPRESSION: 1. Recent chest pain, atypical for myocardial ischemia. Suspect noncardiac in light of coronary angiography findings. 2. Recent syncopal episode and some tendency for sinus bradycardia. Patient noted to increase her heart rate when she mobilizes. 3. Chronic cigarette use. Recently discontinued. 4. Type 2 diabetes mellitus. 5. Hypertension. 6. Hypercholesterolemia. 7. Obesity. 8. Bipolar disorder. RECOMMENDATIONS: 1. At this point, reasonable for patient to be discharged once she has completed her bedrest post cardiac catheterization procedure if there are no postprocedural issues. 2. Would arrange for 30-day event recorder and followup in our office to further screen for any potential adrian arrhythmias. cc: MD Nate Andujar MD
[2017-04-19 15:03] VITALS: BP 117/74
--- NOTE | 2017-04-20 12:44 | DISCHARGE SUMMARY ---
ADMISSION DATE: 04/16/2017 DISCHARGE DATE: 04/19/2017 FINAL DISCHARGE DIAGNOSIS: 1. Symptomatic bradycardia. 2. Noninsulin diabetes mellitus. 3. Hypertension. 4. Hyperlipidemia. 5. Hypothyroidism. 6. Depression. 7. Low back pain. 8. Near syncopal episode. 9. Tobacco abuse. Ms. Noel is a 46-year-old, white female patient admitted with symptomatic bradycardia. The patient was feeling weak, dizzy and lightheaded. This was her 2nd admission. Evaluated in the ER, admitted for further care. The patient was admitted to telemetry bed. The patient had vague chest pain. Her stress test was negative. Blue Line Operator decided to do arteriogram. Cardiac cath result did not reveal any major coronary artery disease. Her coronaries were essentially benign. Patient is doing better. The plan is to put the event monitor. Her heart rate stayed between 51- 72. Vital signs remained otherwise stable. Discussed with cryogenics repairer. They are okay for patient to go home. They are going to arrange for event monitor. Overall patient received maximum benefit of hospitalization. Encouraged patient not to restart smoking. Fall precaution. Monitor blood pressure and heart rate at home. In case of more distress, call us back or go to emergency room. Overall discharge condition satisfactory. LAB DATA: Revealed electrolytes were fairly benign. Last hemoglobin 11.8, hematocrit 35.7, WBC count 6.06, platelet 198,000. Sodium 146, potassium 4.1, blood sugar 142. Cardiac isoenzymes negative. TSH 0.99. Free T4 0.88. D-dimer, PT and PTT were normal. Chest x-ray was essentially benign. Cardiac cath benign coronaries. Blue Line Operator recommendation reviewed. We will discharge patient home. Fall precaution. Monitor heart rate blood pressure at home. Blue Line Operator is going to arrange for a event recorder. Follow up with cryogenics repairer as scheduled. In case of more distress, call us back or go to emergency room. Advised patient to see her psychiatrist to change her the antipsychotic medication. The patient understood and agreed. cc: Nate Samuel MD
--- NOTE | 2017-04-22 17:47 | PROVIDER DOCUMENTATION ---
This chart was entered by Ras Sadler Scribe, acting as scribe for Allen Briones MD. HPI-General Adult - General Chief Complaint: Return/Recheck Stated Complaint: low heart rate Time Seen by Provider: 04/16/17 18:57 Source: patient, family Allergies/Adverse Reactions: Patient Allergies Allergy/AdvReac Type Severity Reaction Status Date / Time ciprofloxacin [From Cipro] Allergy Severe ANAPHYLAXIS Verified 04/16/17 19:01 ciprofloxacin HCl * Allergy Severe ANAPHYLAXIS Verified 04/16/17 19:01 [From Cipro] Sulfa (Sulfonamide Allergy Severe ANAPHYLAXIS Verified 04/16/17 19:01 Antibiotics) [Sulfa(Sulfonamide Antibiotics)] Home Medications: Home Medication List Medication Instructions Recorded Confirmed Last Taken Type Levothyroxine [Synthroid] 50 microgm PO DAILY 09/09/12 04/16/17 04/16/17 06:00 History PRAVAstatin [Pravachol] 20 mg PO QHS 09/09/12 04/16/17 04/15/17 19:00 History Aspirin 81 mg PO QAM 05/31/15 04/16/17 04/16/17 06:00 History Cholecalciferol (Vitamin D3) 1,000 unit PO BID 05/31/15 04/16/17 04/16/17 06:00 History [Vitamin D3] Montelukast Sodium [Singulair] 10 mg PO DAILY 05/31/15 04/16/17 04/16/17 06:00 History Ranitidine HCl [Zantac] 150 mg PO 1200 05/31/15 04/16/17 04/06/17 History Quetiapine [Seroquel] 1 tab PO QHS 03/04/17 04/16/17 04/15/17 19:00 History Omeprazole 20 mg PO DAILY #20 tablet. 03/13/17 04/16/17 04/16/17 06:00 Rx Calcium Citrate/Vitamin D3 1 each PO BID 03/30/17 04/16/17 04/16/17 06:00 History [Calcium Citrate - Vit D3 Tab] Diclofenac Sodium 50 mg PO BID #30 tablet. 03/30/17 04/16/17 04/06/17 Rx Potassium Chloride [Klor-Con M20] 20 meq PO BID 03/30/17 04/16/17 04/16/17 06: 00 History Acetaminophen [Tylenol] 650 mg PO Q6H PRN PRN #0 tablet 04/09/17 04/16/17 Unknown Rx Clonazepam [Klonopin] 1 mg PO TID PRN PRN #0 tablet 04/09/17 04/16/17 04/16/17 06:00 Rx Gemfibrozil [Lopid] 600 mg PO BID tablet 04/09/17 04/16/17 04/16/17 06:00 Rx Losartan [Cozaar] 50 mg PO DAILY tablet 04/09/17 04/16/17 04/16/17 06:00 Rx Bupropion HCl [Wellbutrin Xl] 150 mg PO QAM #0 04/19/17 04/16/17 04/16/17 06: 00 Rx Topiramate [Topamax] 100 mg PO QHS #0 04/19/17 04/16/17 04/15/17 19:00 Rx Trazodone [Desyrel] 50 tab PO QHS #0 04/19/17 04/16/17 04/15/17 19:00 Rx Vortioxetine Hydrobromide 0 mg PO QHS 04/19/17 Unknown Rx [Trintellix] - History of Present Illness -Gen Adult Nature of Presenting Problems: Pt is a 46 yowf who presents to ER with CC of bradycardia. Pt reports that she was admitted here last week after a syncopal episode and had to be resuscitated by family. PT states that she had an ECG and cardiac stress test while in the hospital (pt was unclear on what her results said) and then discharged. Pt reports that today, she started to feel weak, checked her fit-bit (fit-bit showed heart rate in the 40s), called her shell core and molding supervisor and the nurse process control technician told pt to come to ER since she was having bradycardia and lightheadedness. Location of Pain/Injury: reports: generalized Pain Radiation: reports: no radiation Quality of Pain: reports: none Severity: reports: mild, moderate Onset/Duration: reports: just prior to arrival Timing: reports: still present, improving Associated Symptoms: reports: dizziness (dizziness/lightheadedness), fatigue, weakness. denies: anxiety, arm pain, back/neck pain, chest pain, constipation, cough, diaphoresis, diarrhea, fever/chills, headaches, loss of appetite, muscle aches, nausea, shortness of breath, syncope (near-syncope) Similar Symptoms Previously?: Yes Recently seen or treated by another doctor?: Yes Review of Systems - Adult - REVIEW OF SYSTEMS - ADULT Constitutional: reports: fatikelley. denies: chills, fever, night sweats, weight gain, weight loss Eyes: reports: no symptoms reported Ears, Nose, Mouth & Throat: reports: no symptoms reported Cardiovascular: reports: irregular heart rate (bradycardic). denies: chest pain , edema, heart murmur, orthopnea, palpitations, poor circulation, PND, syncope ( near-syncope) Respiratory: reports: no symptoms reported Gastrointestinal: reports: no symptoms reported Genitourinary: reports: no symptoms reported Musculoskeletal: reports: no symptoms reported Integumentary: reports: no symptoms reported Neurological: reports: no symptoms reported Psychiatric: reports: no symptoms reported Endocrine: reports: no symptoms reported Hematologic/Lymphatic: reports: no symptoms reported Allergic/Immunologic: reports: no symptoms reported All Other Systems: Reviewed and Negative Past History - Adult - PAST MEDICAL HISTORY-ADULT Review of Records: reports: Nursing Assessment Review, Medications Reviewed Cardiovascular: reports: HTN, hyperlipidemia Respiratory: reports: COPD Gastrointestinal: reports: GERD Neurological: reports: headaches/migraines Psychiatric: reports: anxiety Endocrine/Immune: reports: Diabetes - PRIOR SURGERIES/PROCEDURES Surgical/Procedure History: reports: reviewed, not pertinent, appendectomy, cholecystectomy, hysterectomy - IMMUNIZATION STATUS Childhood Immunizations: See Nurse Assessment Flu Vaccine: See Nurse Assessment - FAMILY HISTORY Family History: reviewed, not pertinent Physical Exam-General - PHYSICAL EXAM-ADULT Initial Vital Signs Reviewed: Yes - CONSTITUTIONAL General Appearance: appears well, alert, no apparent distress, lethargic - EYES Eyes: PERRL/EOMI, pink conjunctivae - NECK Neck: non-tender, full range of motion, supple, normal inspection. negative: limited range of motion, lymphadenopathy - RESPIRATORY Respiratory: chest non-tender, lungs clear, normal breath sounds, no pleuratic chest pain, no respiratory distress, no accessory muscle use. negative: respiratory distress, decreased breath sounds, accessory muscle use, wheezing - CARDIOVASCULAR Cardiovascular: normal peripheral pulses, bradycardia. negative: regular rate, rhythm, tachycardia, irregularly irregular - GASTROINTESTINAL (ABDOMEN) Abdominal Exam: normal bowel sounds, non tender, soft, no organomegaly, no pulsatile mass. negative: distended, rebound, tenderness - MUSCULOSKELETAL Back Exam: normal inspection, no CVA tenderness, no vertebral tenderness. negative: CVA tenderness, vertebral tenderness Extremity: normal range of motion, non-tender, normal gait, normal inspection, no pedal edema, no calf tenderness, normal capillary refill, pelvis stable. negative: deformity, erythema, inflammation, swelling, tenderness - SKIN Integumentary: normal color, normal turgor, warm/dry. negative: abrasion(s), diaphoresis, ecchymosis, erythema, laceration(s), swelling, tenderness, warm - PSYCHIATRIC Psych/Mental Status: normal mood/affect, normal thought content, normal thought process, oriented x 3 Progress - PLAN OF CARE/RESULTS Progress/Plan/Lab Results: Vital Signs - 8 hr 04/16/17 17:28 Temperature 97.6 F Pulse Rate 63 Respiratory Rate 20 Blood Pressure 145/82 O2 Sat by Pulse Oximetry 100 Laboratory Results - last 24 hr 04/16/17 04/16/17 04/16/17 17:37 17:37 17:37 WBC 9.27 RBC 4.08 L Hgb 12.4 Hct 36.4 L MCV 89.2 MCH 30.4 MCHC 34.1 RDW Std Deviation 13.0 Plt Count 220 MPV 11.4 H Immature Gran % (Auto) 0.3 Neut % (Auto) 66.3 Lymph % (Auto) 24.6 [place] % (Auto) 8.1 Eos % (Auto) 0.5 Baso % (Auto) 0.2 Immature Gran # (Auto) 0.03 Neut # (Auto) 6.14 Lymph # (Auto) 2.28 [place] # (Auto) 0.75 H Eos # (Auto) 0.05 Baso # (Auto) 0.02 PT INR PTT (Actin FS) D-Dimer 0.19 Sodium 137 Potassium 3.2 L Chloride 100 Carbon Dioxide 22 L Anion Gap 15 BUN 6 L Creatinine 0.8 Estimated GFR/1.73 m2 > 60 BUN/Creatinine Ratio 8 Glucose 145 H Calculated Osmolality 274 Calcium 9.5 Magnesium 1.8 Total Bilirubin 0.23 AST 20 ALT 36 Alkaline Phosphatase 64 Creatine Kinase 23 L Troponin T Icf-T-Faegvsstbwy Pept Total Protein 7.0 Albumin 4.6 Globulin 2.4 Albumin/Globulin Ratio 1.9 06/16/17 06/16/17 06/16/17 17:37 17:37 17:37 WBC RBC Hgb Hct MCV MCH MCHC RDW Std Deviation Plt Count MPV Immature Gran % (Auto) Neut % (Auto) Lymph % (Auto) [place] % (Auto) Eos % (Auto) Baso % (Auto) Immature Gran # (Auto) Neut # (Auto) Lymph # (Auto) [place] # (Auto) Eos # (Auto) Baso # (Auto) PT 10.7 INR 1.02 PTT (Actin FS) 24.9 D-Dimer Sodium Potassium Chloride Carbon Dioxide Anion Gap BUN Creatinine Estimated GFR/1.73 m2 BUN/Creatinine Ratio Glucose Calculated Osmolality Calcium Magnesium Total Bilirubin AST ALT Alkaline Phosphatase Creatine Kinase Troponin T < 0.010 Zyy-R-Medbrqsonki Pept 353 H Total Protein Albumin Globulin Albumin/Globulin Ratio Orders Category Date Time Status Cardiac Monitoring DIRECTED Care 04/16/17 17:37 Active Saline Loc NOW Care 04/16/17 17:37 Active CHEST-2 VIEWS [RAD] Stat Exams 04/16/17 17:37 Taken CBC WITH ELECTRONIC DIFF [HEME] Stat Lab 04/16/17 17:37 Completed CK PROFILE [SP CHEM] Stat Lab 04/16/17 17:37 Completed COMPREHENSIVE METABOLIC PANEL [CHEM] Stat Lab 04/16/17 17:37 Completed D-DIMER [CHEM] Stat Lab 04/16/17 17:37 Completed MAGNESIUM [CHEM] Stat Lab 04/16/17 17:37 Completed PRO B-NATRIURETIC PEPTIDE Stat Lab 04/16/17 17:37 Completed PROTIME WITH INR [COAG] Stat Lab 04/16/17 17:37 Completed PTT [COAG] Stat Lab 04/16/17 17:37 Completed TROPONIN T Stat Lab 04/16/17 17:37 Completed Aspirin Med 04/16/17 17:37 Discontinued 325 mg PO STAT STA EKG [EKG] Stat Ther 04/16/17 17:32 Ordered Result Diagrams: 04/18/17 03:30 04/18/17 03:30 - XRAY 1 XRAY: Bilateral XRAY Study: Chest Impression: See EMR Report XRAY Interpretation: Normal - Dr. Briones - CONSULTS/PCP/HOSPITALIST Notification #1 *Consult/PCP/Hospitalist*: Dr. Simon (Hospitalist) Time Discussed: 23:15 Departure - Departure Date of Disposition Decision: 04/16/17 Time of Disposition Decision: 19:55 DIAGNOSIS: Sinus bradycardia Disposition: ADMITTED INPATIENT 09 Certified Medical Emergency: Emergent Condition: Stable - Critical Care Note This patient required my direct & personal management of CC.: No This chart was documented by the indicated scribe, (Ras Sadler, Azael) and accurately reflects the services I performed and decisions made by me, Allen Briones MD, as attested by the provider's signature.
== END 2017-04-19 19:59 | disposition home or self-care (01) ==
LOC: ED 17:22 → SUATTDRO 04-17 00:40 → 3N 04-17 00:40 → 3S 04-19 10:45
PROVIDERS: ADMIT Internal Medicine; ATTEND Internal Medicine

== ENCOUNTER 2017-04-25 17:53 | Inpatient (IN) ==
--- NOTE | 2017-04-25 18:33 | PROVIDER DOCUMENTATION ---
HPI-General Adult - General Chief Complaint: Syncope Stated Complaint: SYNCOPAL Time Seen by Provider: 04/25/17 18:25 Source: patient, family Allergies/Adverse Reactions: Patient Allergies Allergy/AdvReac Type Severity Reaction Status Date / Time ciprofloxacin [From Cipro] Allergy Severe ANAPHYLAXIS Verified 04/25/17 20:30 ciprofloxacin HCl * Allergy Severe ANAPHYLAXIS Verified 04/25/17 20:30 [From Cipro] Sulfa (Sulfonamide Allergy Severe ANAPHYLAXIS Verified 04/25/17 20:30 Antibiotics) [Sulfa(Sulfonamide Antibiotics)] Home Medications: Home Medication List Medication Instructions Recorded Confirmed Last Taken Type Levothyroxine [Synthroid] 50 microgm PO DAILY 09/09/12 04/25/17 04/25/17 History PRAVAstatin [Pravachol] 20 mg PO QHS 09/09/12 04/25/17 04/25/17 History Aspirin 81 mg PO QAM 05/31/15 04/25/17 04/25/17 History Cholecalciferol (Vitamin D3) 1,000 unit PO BID 05/31/15 04/25/17 04/25/17 History [Vitamin D3] Montelukast Sodium [Singulair] 10 mg PO DAILY 05/31/15 04/25/17 04/16/17 06:00 History Ranitidine HCl [Zantac] 150 mg PO 1200 05/31/15 04/25/17 04/06/17 History Quetiapine [Seroquel] 1 tab PO QHS 03/04/17 04/25/17 04/25/17 History Omeprazole 20 mg PO DAILY #20 tablet. 03/13/17 04/25/17 04/25/17 Rx Calcium Citrate/Vitamin D3 1 each PO BID 03/30/17 04/25/17 04/25/17 History [Calcium Citrate - Vit D3 Tab] Diclofenac Sodium 50 mg PO BID #30 tablet. 03/30/17 04/25/17 04/06/17 Rx Potassium Chloride [Klor-Con M20] 20 meq PO BID 03/30/17 04/25/17 04/25/17 History Acetaminophen [Tylenol] 650 mg PO Q6H PRN PRN #0 tablet 04/09/17 04/25/17 Unknown Rx Clonazepam [Klonopin] 1 mg PO TID PRN PRN #0 tablet 04/09/17 04/25/17 04/25/17 Rx Gemfibrozil [Lopid] 600 mg PO BID tablet 04/09/17 04/25/17 04/16/17 06:00 Rx Losartan [Cozaar] 50 mg PO DAILY tablet 04/09/17 04/25/17 04/16/17 06:00 Rx Bupropion HCl [Wellbutrin Xl] 150 mg PO QAM #0 04/19/17 04/25/17 04/16/17 06: 00 Rx Topiramate [Topamax] 100 mg PO QHS #0 04/19/17 04/25/17 04/25/17 Rx Trazodone [Desyrel] 50 tab PO QHS #0 04/19/17 04/25/17 04/25/17 Rx Vortioxetine Hydrobromide 0 mg PO QHS 04/19/17 04/25/17 04/24/17 Rx [Trintellix] Metformin [Glucophage] 1,500 mg PO DAILY 04/25/17 04/25/17 04/25/17 History - History of Present Illness -Gen Adult Nature of Presenting Problems: Pt is a 46 y/o F c chief complaint of sycopal episode today at home. Per family , pt walked across her living room and became weak and lowered herself to the ground. Family and pt deny head injury. EMS stated pt was hypotensive at home with a systolic of 84. On arrival, pt is alert and oriented c normal vital signs. Pt has a h/o syncopal episodes and had a heart cath by Dr. Hooper ( Cardiology) yesterday that was normal. Pt is followed by Dr. Samuel (PCP) who met her at the ER today. Dr. Samuel recommended cardiac workup and discussion c Dr. Hooper. Review of Systems - Adult - REVIEW OF SYSTEMS - ADULT Constitutional: reports: no symptoms reported. denies: chills, fatique Eyes: reports: no symptoms reported. denies: blurred vision, double vision Ears, Nose, Mouth & Throat: reports: no symptoms reported. denies: ear pain, nose pain Cardiovascular: reports: chest pain, syncope. denies: orthopnea Respiratory: reports: no symptoms reported. denies: cough, shortness of breath Gastrointestinal: reports: no symptoms reported. denies: abdominal pain, nausea Genitourinary: reports: no symptoms reported. denies: dysuria, hematuria Musculoskeletal: reports: no symptoms reported. denies: joint pain, joint swelling Integumentary: reports: no symptoms reported. denies: hives, itching Neurological: reports: no symptoms reported. denies: numbness, paresthesia Psychiatric: reports: no symptoms reported. denies: anxiety, emotional problems Endocrine: reports: no symptoms reported. denies: cold intolerance, heat intolerance Hematologic/Lymphatic: reports: no symptoms reported. denies: blood clots, low blood count Allergic/Immunologic: reports: no symptoms reported. denies: allergic reactions , food allergy All Other Systems: Reviewed and Negative Past History - Adult - PAST MEDICAL HISTORY-ADULT Review of Records: reports: Old Records Reviewed, Nursing Assessment Review, Medications Reviewed, Social history reviewed & non-contributory. Major Childhood Illnesses: reports: denies history Cardiovascular: reports: HTN, hyperlipidemia Respiratory: reports: COPD Gastrointestinal: reports: GERD Obstetrical/Gynecological: reports: denies history Genitourinary: reports: denies history Musculoskeletal: reports: denies history Neurological: reports: headaches/migraines Psychiatric: reports: anxiety Endocrine/Immune: reports: Diabetes Other Conditions: reports: denies history - PRIOR SURGERIES/PROCEDURES Surgical/Procedure History: reports: reviewed, not pertinent, appendectomy, cholecystectomy, hysterectomy - IMMUNIZATION STATUS Childhood Immunizations: See Nurse Assessment Flu Vaccine: See Nurse Assessment - FAMILY HISTORY Family History: reviewed, not pertinent - SOCIAL HISTORY Smoking: denies Substance Use: none/never Alcohol Use Frequency: never Living Situation: family Physical Exam-General - PHYSICAL EXAM-ADULT Initial Vital Signs Reviewed: Yes - CONSTITUTIONAL General Appearance: alert, no apparent distress - EYES Eyes: PERRL/EOMI, pink conjunctivae - HEAD, EARS, NOSE, MOUTH & THROAT HENMT: normocephalic/atraumatic, moist mucous membranes, normal ENT inspection - NECK Neck: normal inspection - RESPIRATORY Respiratory: chest non-tender, lungs clear, normal breath sounds - CARDIOVASCULAR Cardiovascular: normal peripheral pulses, regular rate, rhythm - GASTROINTESTINAL (ABDOMEN) Abdominal Exam: normal bowel sounds, non tender, soft - LYMPHATIC Lymphatic: no adenopathy - MUSCULOSKELETAL Back Exam: normal inspection, no CVA tenderness, no vertebral tenderness Extremity: normal range of motion, non-tender, normal inspection - SKIN Integumentary: normal color, normal turgor, warm/dry - NEUROLOGIC Neurologic: grossly normal, no motor/sensory deficits - PSYCHIATRIC Psych/Mental Status: normal mood/affect, normal thought content, normal thought process, oriented x 3 Progress - PLAN OF CARE/RESULTS Progress/Plan/Lab Results: Vital Signs - 8 hr 04/25/17 18:05 Temperature 98.2 F Pulse Rate 50 L Respiratory Rate 18 Blood Pressure 157/85 O2 Sat by Pulse Oximetry 98 Orders Category Date Time Status Cardiac Monitoring DIRECTED Care 04/25/17 18:26 Active ED: Orthostatic Vital Signs (E as directed Care 04/25/17 18:27 Active Saline Loc NOW Care 04/25/17 18:26 Active CHEST-2 VIEWS [RAD] Stat Exams 04/25/17 18:26 Ordered CBC WITH ELECTRONIC DIFF [HEME] Stat Lab 04/25/17 18:10 Ordered CK PROFILE [SP CHEM] Stat Lab 04/25/17 18:10 Ordered COMPREHENSIVE METABOLIC PANEL [CHEM] Stat Lab 04/25/17 18:10 Ordered D-DIMER [CHEM] Stat Lab 04/25/17 18:10 Ordered MAGNESIUM [CHEM] Stat Lab 04/25/17 18:10 Ordered PRO B-NATRIURETIC PEPTIDE Stat Lab 04/25/17 18:10 Ordered PROTIME WITH INR [COAG] Stat Lab 04/25/17 18:10 Ordered PTT [COAG] Stat Lab 04/25/17 18:10 Ordered TROPONIN T Stat Lab 04/25/17 18:10 Ordered UDS [URINE DRUG SCREEN] Stat Lab 04/25/17 18:27 Uncollected URINALYSIS W/POSS RFLX CULT-1 [URINALYSIS] Stat Lab 04/25/17 18:27 Uncollected EKG [EKG] Stat Ther 04/25/17 18:26 Ordered Result Diagrams: 04/25/17 18:20 04/25/17 18:20 - REASSESSMENT Reassessment #1 Time Reassessed: 18:32 (Dr. Samuel (PCP) at bedside c pt. States she was seen by Dr. Hooper yesterday and had a full cardiac workup including cardiac cath. Dr. Samuel recommended cardiac evaluation then call Dr. Hooper. ) Reassessment #2 Time Reassessed: 22:06 (Discussing lab results c pt and family. Her heart rate is now ranging from 35-40. She continues to have chest pain. Discussed c Dr. Holder (ER MD) who would like to admit her for obs. ) - CONSULTS/PCP/HOSPITALIST Notification #1 *Consult/PCP/Hospitalist*: Dr. Beard (Hospitalist) Time Discussed: 22:07 Reason/Comments: Agreed to admit pt. Will see pt in the ER and write orders. Departure - Departure Date of Disposition Decision: 04/25/17 Time of Disposition Decision: 22:08 DIAGNOSIS: Bradycardia Syncope Qualifiers: Syncope type: unspecified Qualified Code(s): R55 - Syncope and collapse Disposition: ADMITTED INPATIENT 09 Certified Medical Emergency: Emergent Condition: Stable Referrals and Follow-Ups: Nate Samuel MD [Primary Care Provider] - - Critical Care Note This patient required my direct & personal management of CC.: No Attestation - Physician/ ELSIE Attestation Patient care was provided by Advanced Practice Provider:: Yes Advanced Practice Provider:: Mendel Ling Advanced Practice Provider documentation review:: The Mid-level provider documentation, treatment plan and medical decision making was reviewed by the physician who agrees with all treatment and medical decision making by the P.
[2017-04-25 18:48] LABS: MANUAL DIFF NEEDED? NO
[2017-04-25 18:55] LABS: BASO% 0.3 % (0.0-0.8); EOS# 0.11 X1000 (0.0-0.7); EOS% 1.5 % (0.0-10.0); HEMATOCRIT 35.2 % (37.0-47.0); HEMOGLOBIN 11.8 g/dL (12.0-16.0); LYMPH# 1.97 X1000 (1.2-3.4); LYMPH% 27.7 % (20.5-51.1); MCH 30.1 PG (27-31); MCHC 33.5 g/dL (33-37); MCV 89.8 FL (81-99); MONO# 0.47 X1000 (0.11-0.59); MONO% 6.6 % (1.7-9.3); MPV 11.2 FL (7.4-10.4); NEUT% 63.9 % (42.2-75.2); PLT 225 X1000 (130-400); RBC 3.92 XMIL (4.2-5.4)
[2017-04-25 19:04] LABS: INR 1.07; PROTIME 11.3 Seconds (9.2-11.7); PTT 26.4 Seconds (22.0-36.0)
[2017-04-25 19:15] LABS: AGAP 11; ALBUMIN 3.9 g/dL (3.5-5.0); ALKALINE PHOSPHATASE 58 U/L (32-104); BUN 12 mg/dL (8-22); CALCIUM 8.8 mg/dL (8.8-10.2); CHLORIDE 100 mmol/L (98-107); CK PROFILE 17 U/L (24-173); COSMO 272; GOT 14 U/L (10-30); GPT 11 U/L (10-36); MAGNESIUM 1.9 mg/dL (1.5-2.7); POTASSIUM 3.7 mmol/L (3.5-5.1); SODIUM 134 mmol/L (136-145); TCO2 23 mmol/L (25-35); TOTAL BILIRUBIN 0.34 mg/dL (0.20-1.00); TOTAL PROTEIN 6.2 g/dL (6.3-8.3)
[2017-04-25 20:04] LABS: URINE CULTURE NEEDED? NO; URINE MICRO REVIEW NEEDED? NO; URINE SOURCE CATH
--- NOTE | 2017-04-25 20:06 | Diag Imaging Result Doc PS360 ---
CHEST-2 VIEWS - 04/25/2017 INDICATION: syncope TECHNIQUE: COMPARISON: 04/16/2017 FINDINGS: The lungs are normally expanded and clear. Heart size and mediastinal contours are normal. No pneumothorax or pleural effusion. IMPRESSION: Negative exam. Electronically signed by Manuel Rousseau 04/25/2017 8:04 PM
[2017-04-25 20:08] LABS: BILIRUBIN URINE NEGATIVE (NEGATIVE); BLOOD URINE NEGATIVE (NEGATIVE); COLOR YELLOW; GLUCOSE URINE NEGATIVE (NEGATIVE); LEUKOCYTES URINE NEGATIVE (NEGATIVE); NITRITE URINE NEGATIVE (NEGATIVE); PH URINE 6.5; PROTEIN URINE NEGATIVE (NEGATIVE); SP GRAVITY URINE 1.021; TURBIDITY URINE HAZY (CLEAR); UROBILINOGEN URINE NORMAL (NORMAL)
[2017-04-25 20:10] LABS: UR EPITHELIAL CELLS <10 /HPF (<10); URINE BACTERIA NEGATIVE /HPF; URINE RBC <10 /HPF (<10); URINE WBC <10 /HPF (<10)
[2017-04-25 20:45] LABS: UR AMPHETAMINES QUAL PRESUMPTIVE POSITIVE (NONE DETECT); UR BARBITUATES QUAL NONE DETECTED (NONE DETECT); UR BENZODIAZEPIN QUAL PRESUMPTIVE POSITIVE (NONE DETECT); UR CANNABINOIDS QUAL NONE DETECTED (NONE DETECT); UR COCAINE QUAL NONE DETECTED (NONE DETECT); UR METHADONE QUAL PRESUMPTIVE POSITIVE (NONE DETECT); UR OPIATES QUAL NONE DETECTED (NONE DETECT); UR OXYCODONE QUAL NONE DETECTED (NONE DETECT); UR PCP QUAL NONE DETECTED (NONE DETECT)
[2017-04-25] MEDS ORDERED: NS 1,000 ML IV ONE (20:53)
[2017-04-25] MEDS ORDERED: ALBUTEROL NEB INH ONE (23:13)
[2017-04-25 23:56] LABS: UR AMPHETAMINES QUAL NONE DETECTED (NONE DETECT); UR BARBITUATES QUAL NONE DETECTED (NONE DETECT); UR BENZODIAZEPIN QUAL PRESUMPTIVE POSITIVE (NONE DETECT); UR CANNABINOIDS QUAL NONE DETECTED (NONE DETECT); UR COCAINE QUAL NONE DETECTED (NONE DETECT); UR METHADONE QUAL PRESUMPTIVE POSITIVE (NONE DETECT); UR OPIATES QUAL NONE DETECTED (NONE DETECT); UR OXYCODONE QUAL NONE DETECTED (NONE DETECT); UR PCP QUAL NONE DETECTED (NONE DETECT)
[2017-04-26] MEDS ORDERED: TYLENOL PO PRN (01:12)
[2017-04-26] MEDS ORDERED: ZOFRAN IV PRN (01:12)
[2017-04-26] MEDS ORDERED: KLONOPIN PO PRN ×2 (01:12→11:16)
[2017-04-26 04:19] LABS: MANUAL DIFF NEEDED? NO
[2017-04-26 04:21] LABS: BASO% 0.1 % (0.0-0.8); EOS# 0.11 X1000 (0.0-0.7); EOS% 1.5 % (0.0-10.0); HEMATOCRIT 32.3 % (37.0-47.0); HEMOGLOBIN 10.9 g/dL (12.0-16.0); LYMPH# 2.27 X1000 (1.2-3.4); LYMPH% 31.2 % (20.5-51.1); MCH 30.1 PG (27-31); MCHC 33.7 g/dL (33-37); MCV 89.2 FL (81-99); MONO% 6.9 % (1.7-9.3); MPV 10.3 FL (7.4-10.4); NEUT% 60.3 % (42.2-75.2); PLT 201 X1000 (130-400); RBC 3.62 XMIL (4.2-5.4)
[2017-04-26] MEDS ORDERED: NARCAN IV ONE (04:53)
--- NOTE | 2017-04-26 05:42 | EKG Report ---
Test Performed on : 04/25/2017 6:14:02 PM Test Reason : BRADYCARDIA/SYNCOPE Blood Pressure : / mmHG Vent. Rate : 048 BPM Atrial Rate : 048 BPM P-R Int : 148 ms QRS Dur : 080 ms QT Int : 484 ms P-R-T Axes : 012 -01 -13 degrees QTc Int : 432 ms Sinus bradycardia. Minimal voltage criteria for LVH, may be normal variant Cannot rule out Anterior infarct , age undetermined Abnormal ECG When compared with ECG of 18-APR-2017 06:06, No significant change was found Unconfirmed Result
--- NOTE | 2017-04-26 05:44 | EKG Report ---
Test Performed on : 04/25/2017 10:42:27 PM Test Reason : second set cardiac workup Blood Pressure : / mmHG Vent. Rate : 039 BPM Atrial Rate : 039 BPM P-R Int : 130 ms QRS Dur : 080 ms QT Int : 510 ms P-R-T Axes : 015 008 -10 degrees QTc Int : 410 ms Marked sinus bradycardia. Nonspecific T wave abnormality Abnormal ECG When compared with ECG of 25-APR-2017 18:14, (Unconfirmed) No significant change was found Unconfirmed Result
[2017-04-26] MEDS ORDERED: PRILOSEC PO SCH (07:00)
[2017-04-26] MEDS ORDERED: SYNTHROID PO SCH (07:00)
[2017-04-26 07:44] LABS: HEMOGLOBIN A1C 5.4 % (4.8-6.0)
--- NOTE | 2017-04-26 07:48 | PROGRESS NOTE ---
DATE: 04/26/2017 SUBJECTIVE: Ms. Noel is feeling fair. This is her multiple admission for bradyarrhythmia. The patient claims that she had two syncopal episode yesterday. One time she was walking her dog, she felt lightheaded and she passed out. Other times she was in the house getting some water from the refrigerator. She felt dizzy, weak, and she fell and passed out. No head injury. The patient had extensive cardiac workup done. She was supposed to get event monitor. The patient is still waiting for event monitor. She did have vague chest pain. No fever or chills. No nausea or vomiting. The patient does have some back pain, some abrasion on her knee. No nausea or vomiting. The patient does have longstanding diabetes mellitus, but lately her blood sugar was doing better. We are holding all her anti-diabetic medications. The patient does have mood disorder, on multiple antidepressant medicine. The patient claims she cut back many of her medicine. She did try to call her psychiatrist, but she is not able to get early appointment. OBJECTIVE: Vital Signs: Her vital signs noted. Neck: Supple. No JVD. Lungs: Bilateral good air entry present. Cardiovascular: S1 and S2 bradycardia. Abdomen: Soft, nontender. Bowel sounds present. Extremities: No cyanosis, clubbing. No acute DVT. MICROBIOLOGY INSTRUCTOR: Alert, awake, able to move all 4 limbs. LAB DATA: Noted. CONSIDERATION: 1. Symptomatic bradycardia. 2. Diabetes mellitus. 3. Hypertension. 4. Mood disorder. 5. Hypothyroidism. I am waiting for gear roller evaluation and recommendations. Her urine drug screen was positive for amphetamine and methadone. Patient's swears she does not use any of those drugs. The patient seems to be trustworthy. Overall plan discussed with the patient and she is in agreement. cc: Nate Samuel MD
--- NOTE | 2017-04-26 08:00 | HISTORY AND PHYSICAL ---
CHIEF COMPLAINT: Syncope. HISTORY OF PRESENT ILLNESS: This is a 46-year-old female, who was recently seen on 04/17/2017 for dizziness and low heart rate. From what I understand, she was going to be placed on a Holter monitor by her primary care provider I believe tomorrow, with a followup appointment with Cardiology. She passed out 2 times today after restorationist. Per the family, it was curious that on her drug screen she was presumptively positive for methadone, benzodiazepines, and amphetamines originally. The patient denied any drug use, so I had a fresh urine sample collected and sent to lab. The second time the urine was random and it was positive for methadone and benzodiazepines. The patient is on Klonopin; however, she does not take methadone. The amphetamines appears to likely have been a false positive. The patient presented with heart rates in the 40s and 50s. She did drop as low as 36. After the second urine drug screen reported, I gave her 0.4 mg of Narcan. Her heart rate subsequently lona to 60 beats per minute. At any rate, she will be admitted to CICU. Dr. Nate Samuel will resume care as the primary care provider in the a.m. PAST MEDICAL HISTORY: 1. Hypertension. 2. Diabetes mellitus type 2. 3. GERD. 4. Gastroparesis. 5. Bipolar disorder. PREVIOUS SURGICAL HISTORY: 1. Back surgery. 2. Neck surgery. 3. Sinus surgery. 4. Wrist surgery. 5. Bilateral knee surgery. 6. Hysterectomy. 7. Breast reduction. 8. Cholecystectomy. 9. Appendectomy. ALLERGIES: Cipro and sulfa. HOME MEDICATIONS: 1. Pravachol 20 mg p.o. at bedtime. 2. Synthroid 50 mcg p.o. daily. 3. Aspirin 81 mg p.o. daily. 4. Vitamin D3 1000 units p.o. b.i.d. 5. Singular 10 mg p.o. daily. 6. Zantac 150 mg p.o. daily. 7. Seroquel 1 tablet p.o. at bedtime. 8. Omeprazole 20 mEq p.o. daily. 9. Klor-Con 20 mEq p.o. b.i.d. 10. Calcium Citrate. 11. Vitamin D 3 one p.o. b.i.d. 12. Diclofenac 50 mg p.o. b.i.d. 13. Clonazepam 1 mg p.o. t.i.d. p.r.n. 14. Lopid 600 mg p.o. b.i.d. 15. Cozaar 50 mg p.o. daily. 16. Tylenol 650 p.o. q.6h. 17. Trintellix at bedtime. 18. Wellbutrin 150 mg p.o. q.a.m. 19. Topamax 100 mg p.o. at bedtime. 20. Trazodone 50 mg p.o. at bedtime. 21. Metformin 1500 mg p.o. daily. SOCIAL HISTORY: Former smoker. Quit around 4 weeks ago. No alcohol or illicit drug use reported. FAMILY HISTORY: Mother had COPD. Father had diabetes mellitus. REVIEW OF SYSTEMS: Fourteen point review of systems conducted with the patient. Pertinent positives listed above in the HPI. All other systems reviewed and found to be negative. PHYSICAL EXAMINATION: VITAL SIGNS: Temperature 98.2 degrees, pulse 39, respirations 18, blood pressure 150/107, oxygen saturation 98% on room air. GENERAL: Pleasant, but slow to respond 46-year-old female, lying on the ER stretcher. Answers all questions appropriately. Family at bedside. HEENT: Head is atraumatic, normocephalic. Pupils equal, round, reactive to light. Extraocular eye movement intact. Sclerae is anicteric. Conjunctivae is pale. Oral mucosa is moist. NECK: Supple. No JVD. No thyromegaly. Trachea is midline. No cervical lymphadenopathy. CARDIAC: S1-S2 appreciated. Regular rhythm. Sinus bradycardia on monitor. No murmurs, gallops, or rubs. LUNGS: Clear to auscultation bilaterally. No rhonchi, wheezes, or rales. Symmetrical rise and fall with respirations. ABDOMEN: Soft, nondistended, nontender. Bowel sounds hypoactive all 4 quadrants. No pulsatile mass. No organomegaly. EXTREMITIES: No clubbing, cyanosis, or edema. 2+ pedal pulses. NEUROLOGICAL: Alert and oriented x3. Cranial nerves 2-12 grossly intact. PSYCHOLOGICAL: Patient has a somewhat flat affect. Is slow to respond. GENITOURINARY: No bladder distention. Otherwise, deferred. SKIN: Warm dry and intact. Mildly pale. DIAGNOSTIC DATA: EKG showed sinus bradycardia. LABORATORY DATA: WBCs 7.11, hemoglobin 11.8, hematocrit 35.2, platelet count 225,000. Coags within normal limits. D-dimer 0.22. Sodium 134, potassium 3.7, chloride 100, carbon dioxide 23, BUN 12, creatinine 0.7, glucose 170. CK and troponins within normal limits. Urine unremarkable. First toxicology screen was positive for methadone, amphetamines, and benzodiazepines. The patient denied any drug use so a second urine sample was sent, which was positive for methadone and benzodiazepines. The amphetamine could be a false positive secondary to her Wellbutrin use. There are several medications, including some that the patient takes that can cause false positives for methadone and the patient does currently take benzodiazepines. ASSESSMENT AND PLAN: 1. Symptomatic bradycardia of unknown etiology. As noted above, the patient is going to wear a Holter monitor tomorrow. Cardiology will be consulted. After the seconds at positive methadone test, a 0.4 mg dose of Narcan was administered. The patient's heart rate did increase over that hour from 39-60. It is possible that this was a related to methadone ingestion, as it could decrease her heart rate. Other possible causes are her Seroquel, which will be held. We will decrease her Klonopin to 0.5 mg t.i.d. Will also hold trazodone and Trentillix. 2. Syncopal episode. This was likely related #1. We will continue to monitor with telemetry. 3. Hypertension. Continue home medications. 4. Diabetes mellitus type 2. We will hold metformin and Lopid. Start on sliding scale insulin, low dose. 5. Hypothyroidism. Continue Synthroid. Further recommendations per patient's clinical course. The patient will resume care by her primary care provider, Dr. Nate Samuel, in the a.m. Dictated by DORA Alberts for Eric Beard MD Seen and examined and discussed case with [employer]OV[employer] INST[employer]ER. Seen,examined and discussed and cc: DORA Alberts MD Bharat K. Vakharia, MD [facility] CENTERGloria
[2017-04-26] MEDS: MIRALAX PO SCH ×2 (08:42→08:47)
[2017-04-26 09:00] LABS: AGAP 13; BUN 8 mg/dL (8-22); CALCIUM 8.8 mg/dL (8.8-10.2); CHLORIDE 106 mmol/L (98-107); COSMO 286; MAGNESIUM 1.8 mg/dL (1.5-2.7); POTASSIUM 3.4 mmol/L (3.5-5.1); SODIUM 142 mmol/L (136-145); TCO2 23 mmol/L (25-35)
[2017-04-26] MEDS ORDERED: VITAMIN D PO SCH (09:00)
[2017-04-26] MEDS ORDERED: COZAAR PO SCH (09:00)
[2017-04-26] MEDS ORDERED: KLOR-CON PO SCH (09:00)
[2017-04-26] MEDS ORDERED: WELLBUTRIN XL PO SCH (09:00)
[2017-04-26] MEDS ORDERED: SINGULAIR PO SCH (09:00)
[2017-04-26] MEDS ORDERED: CALTRATE 600 + D PO SCH (09:00)
[2017-04-26] MEDS ORDERED: ASPIRIN PO SCH (09:00)
[2017-04-26 09:04] VITALS: BP 139/78
--- NOTE | 2017-04-26 10:27 | CONSULTATION ---
DATE OF CONSULTATION: 04/26/2017 INDICATION: Syncope. HISTORY OF PRESENT ILLNESS: Ms. Noel is a 46-year-old, white female with a history of hypertension, diabetes, and gastroparesis. She has multiple complaints of syncope occurring over years. Most recently, she had 2 episodes yesterday. They both occurred with standing. She was at minimal to no exertion. She felt very lightheaded and passed out. One of these episodes, she thinks she was down for about 5-10 minutes and felt somewhat groggy when she came to. There was no bowel or bladder incontinence. She has had heart rates evaluated here in the ER in the 30s to 40s which has been noted before with her. She is not on any obvious AV kavon blockers or heart rate slowing medications with the exception of methadone showing up in her drug screen. She is adamant that she does not take that medication. She had a recent heart catheterization which was unremarkable, as well as echocardiograms which have been unremarkable. PAST MEDICAL HISTORY: 1. Hypertension. 2. Diabetes mellitus. 3. Reflux disease. 4. Gastroparesis. 5. History of bipolar. 6. Multiple episodes of syncope. SOCIAL HISTORY: She is a former smoker, quit around a month ago. No alcohol or illicit drugs. REVIEW OF SYSTEMS: Ten system review of systems is negative except for those things mentioned in the HPI. FAMILY HISTORY: Mother had COPD. Father had diabetes. PHYSICAL EXAMINATION: Vital Signs: She is afebrile. Tilt vital signs here in the ER were negative. Heart rates have been documented anywhere from the 30s to the 50s. Blood pressure 139/78. Her blood pressure in the field on initial evaluation was 86/61. Subsequently, within 10 minutes, it was 147/74. General: No acute distress. HEENT: Oropharynx is moist. Normal dentition. Eye examination shows pink conjunctivae and white sclerae. Neck: Examination shows no obvious thyromegaly or thyroid tenderness. Cardiovascular: She is in a regular rate and rhythm. She has no obvious murmurs. She has no S3. Heart rate at the time of my evaluation was in the 50s. She has no lower extremity edema. Chest Examination: Clear to auscultation bilaterally. She has no increased work of breathing. Abdomen: Soft, nontender, nondistended. She has no obvious organomegaly. Skin Examination: Warm and dry throughout without any rashes. Neurological: She is moving all extremities well. Cranial nerves 2-12 are intact without any sensation deficits. PERTINENT DATA: She had a heart catheterization that showed normal coronaries that was done April 17. She had a left ventriculogram demonstrating an EF of around 60%. Echocardiogram was performed on April 08, demonstrating an EF of 71%. Relatively unremarkable study. She has EKGs performed on presentation. The initial was at 1813, showing sinus bradycardia, rate of 48 beats per minute. No evidence of AV node block. Subsequent EKG at 2241 showed a heart rate of 39 beats per minute with no evidence of significant AV block. Her laboratory data shows a white count of 7.3, hematocrit 32.3, platelet count of 201,000. Sodium 142, potassium 3.4, BUN 8, creatinine 0.7. Magnesium level is 1.8. Her LDL level is 60, HDL 43. ASSESSMENT: 1. Syncope. 2. Relative bradycardia. PLAN: I have arranged for a 30 day outpatient ANTON for the patient to get at the time of discharge. At the time of discharge, [facility]. Presently, she is not on any clear medications that would cause significant bradycardia. She does have a positive drug screen for methadone. However, some of her medications, specifically bupropion and ranitidine can cause false positives. However, I did discuss this with her that methadone can cause bradycardia. I have stressed to her to not take that medication. On April 18, her TSH was 0.99 with a free T4 of 0.88. I do not believe that this would cause a significant amount of bradycardia. We will follow up with the 30 day ANTON and try to tie a significant arrhythmia with her syncopal episodes prior to committing her to permanent pacemaker. cc: MD Nate Santoro MD
[2017-04-26] MEDS ORDERED: ZANTAC PO SCH (12:00)
[2017-04-26] MEDS ORDERED: TOPAMAX PO SCH (21:00)
[2017-04-26] MEDS ORDERED: PRAVACHOL PO SCH (21:00)
== END 2017-04-26 11:48 | disposition home or self-care (01) ==
LOC: SUPCPDRO → ED 17:53 → SUATTDRO 23:07 → EDIPHOLD 23:07 → 3S 04-26 10:23
PROVIDERS: ADMIT Internal Medicine; ATTEND Internal Medicine

== ENCOUNTER 2017-05-08 15:36 | Inpatient (IN) ==
[2017-05-08] MEDS ORDERED: ASPIRIN PO ONE (15:46)
--- NOTE | 2017-05-08 16:15 | Diag Imaging Result Doc PS360 ---
EXAM: CHEST-2 VIEWS HISTORY: CP TECHNIQUE: COMPARISON: 04/25/2017 FINDINGS: The lungs are well expanded. The heart is not enlarged. The vessels are not distended. There are no infiltrates. No pleural effusions. There has been prior surgery to the lower neck. IMPRESSION: No acute abnormality. Electronically signed by Doug Charlton 05/08/2017 4:13 PM
[2017-05-08] MEDS ORDERED: ZOFRAN ONE (16:20)
[2017-05-08 16:28] LABS: BASO% 0.2 % (0.0-0.8); EOS# 0.07 X1000 (0.0-0.7); EOS% 0.8 % (0.0-10.0); HEMOGLOBIN 12.9 g/dL (12.0-16.0); LYMPH# 1.93 X1000 (1.2-3.4); LYMPH% 22.1 % (20.5-51.1); MANUAL DIFF NEEDED? NO; MCH 30.4 PG (27-31); MCHC 34.9 g/dL (33-37); MCV 87.3 FL (81-99); MONO# 0.54 X1000 (0.11-0.59); MONO% 6.2 % (1.7-9.3); MPV 10.7 FL (7.4-10.4); NEUT% 70.7 % (42.2-75.2); PLT 244 X1000 (130-400); RBC 4.24 XMIL (4.2-5.4)
[2017-05-08 16:39] LABS: INR 1.06; PROTIME 11.2 Seconds (9.2-11.7); PTT 26.5 Seconds (22.0-36.0)
[2017-05-08] MEDS ORDERED: NS 1,000 ML IV ONE (16:45)
[2017-05-08 16:54] LABS: AGAP 12; ALBUMIN 4.4 g/dL (3.5-5.0); ALKALINE PHOSPHATASE 60 U/L (32-104); BUN 10 mg/dL (8-22); CALCIUM 9.7 mg/dL (8.8-10.2); CHLORIDE 99 mmol/L (98-107); CK PROFILE 15 U/L (24-173); COSMO 267; GOT 11 U/L (10-30); GPT 11 U/L (10-36); MAGNESIUM 1.7 mg/dL (1.5-2.7); POTASSIUM 3.6 mmol/L (3.5-5.1); SODIUM 132 mmol/L (136-145); TCO2 21 mmol/L (25-35); TOTAL BILIRUBIN 0.47 mg/dL (0.20-1.00)
[2017-05-08 17:03] LABS: UR AMPHETAMINES QUAL NONE DETECTED (NONE DETECT); UR BARBITUATES QUAL NONE DETECTED (NONE DETECT); UR BENZODIAZEPIN QUAL PRESUMPTIVE POSITIVE (NONE DETECT); UR CANNABINOIDS QUAL NONE DETECTED (NONE DETECT); UR COCAINE QUAL NONE DETECTED (NONE DETECT); UR METHADONE QUAL NONE DETECTED (NONE DETECT); UR OPIATES QUAL NONE DETECTED (NONE DETECT); UR OXYCODONE QUAL NONE DETECTED (NONE DETECT); UR PCP QUAL NONE DETECTED (NONE DETECT)
--- NOTE | 2017-05-08 17:51 | PROVIDER DOCUMENTATION ---
This chart was entered by Daniela Fallon Scribe, acting as scribe for Maik Stovall MD. HPI-Chest Pain <Shelley Lara - Last Filed: 05/08/17 21:23> - General Source: patient, family - History of Present Illness-CP Location: reports: other (LEFT ANTERIOR) Chest Pain Radiation: reports: shoulders (LEFT SHOULDER) Quality of Pain: reports: aching Severity in ED: mild Onset/Duration: just prior to arrival Timing: still present, intermittent Context/Activities at Onset: reports: light activity Modifying Factors: improves with: movement (LEFT SHOULDER), palpation (LEFT ANTERIOR CHEST) Associated Symptoms: reports: dizziness, fatigue, nausea, syncope. denies: abdominal pain, back pain, diaphoresis, edema, headache, shortness of breath, swelling/lump in chest, vomiting Nitro Today/Relief: no nitro taken today Aspirin Treatment Today: 81 mg x 1 Prior Chest Pain/Cardiac Workup: reports: other (PT WEARING 30DAY HOLTER AT THIS TIME) Similar Symptoms Previously?: Yes Recently Seen Here or By Another Healthcare Provider: Yes (ENVIRONMENTAL SERVICES LEAD) <Maik Stovall - Last Filed: 05/12/17 13:20> - General Chief Complaint: Chest Pain Stated Complaint: CHEST PAIN,SYNCOPE Time Seen by Provider: 05/08/17 15:51 Allergies/Adverse Reactions: Patient Allergies Allergy/AdvReac Type Severity Reaction Status Date / Time ciprofloxacin [From Cipro] Allergy Severe ANAPHYLAXIS Verified 04/25/17 20:30 ciprofloxacin HCl * Allergy Severe ANAPHYLAXIS Verified 04/25/17 20:30 [From Cipro] Sulfa (Sulfonamide Allergy Severe ANAPHYLAXIS Verified 04/25/17 20:30 Antibiotics) [Sulfa(Sulfonamide Antibiotics)] Home Medications: Home Medication List Medication Instructions Recorded Confirmed Last Taken Type Levothyroxine [Synthroid] 50 microgm PO DAILY 09/09/12 05/08/17 05/07/17 History PRAVAstatin [Pravachol] 20 mg PO QHS 09/09/12 05/08/17 05/07/17 History Aspirin 81 mg PO QAM 05/31/15 05/08/17 05/08/17 History Cholecalciferol (Vitamin D3) 1,000 unit PO BID 05/31/15 05/08/17 05/08/17 History [Vitamin D3] Montelukast Sodium [Singulair] 10 mg PO DAILY 05/31/15 05/08/17 05/07/17 History Omeprazole 20 mg PO DAILY #20 tablet. 03/13/17 05/08/17 05/08/17 Rx Calcium Citrate/Vitamin D3 1 each PO BID 03/30/17 05/08/17 05/08/17 History [Calcium Citrate - Vit D3 Tab] Potassium Chloride [Klor-Con M20] 20 meq PO BID 03/30/17 05/08/17 05/08/17 History Gemfibrozil [Lopid] 600 mg PO BID tablet 04/09/17 05/08/17 05/08/17 Rx Topiramate [Topamax] 100 mg PO QHS #0 04/19/17 05/08/17 05/07/17 Rx Trazodone [Desyrel] 50 tab PO QHS #0 04/19/17 05/08/17 05/07/17 Rx Bupropion HCl [Wellbutrin Xl] 300 mg PO DAILY 05/11/17 05/11/17 Unknown History Clonazepam 1.5 mg PO TID 05/11/17 05/11/17 Unknown History Vortioxetine Hydrobromide 20 mg PO QHS 05/11/17 05/11/17 Unknown History [Trintellix] Hydrocodone/APAP 5 mg/325 mg 1 each PO Q6H PRN PRN #0 tablet 05/12/17 Unknown Rx [[place]ethpage-5] Omeprazole [Prilosec] 20 mg PO DAILY@0700 capsule 05/12/17 Unknown Rx Polyethylene Glycol 3350 [Miralax] 17 gm PO DAILY powder, packet 05/12/17 Unknown Rx Quetiapine Fumarate [Seroquel] 100 mg PO QHS #0 05/12/17 05/11/17 Unknown Rx Quetiapine [Seroquel] 100 mg PO QHS tablet 05/12/17 Unknown Rx Ranitidine HCl [Zantac] 150 mg PO DAILY #0 05/12/17 05/08/17 05/08/17 Rx - History of Present Illness-CP Nature of Presenting Problem: PT IS A 46YOF PRESENTING TO THE ED C/O CP. PT STATES SHE BEGAN TO FEEL LIKE HER HEART WAS BEATING SLOW AND FELT FAINT THEN AT THAT TIME SHE BLACKED OUT. FAMILY WAS WITH PT AT TIME AND KEPT HER FROM FALLING AND HURTING HERSELF. PT STATES SHE IS HAVING CP IN LEFT CHEST THAT IS REPRODUCIBLE WITH SHOULDER MOVEMENT AND PALPATION WELL A DEEP BREATH. PT HAS SEEN PCP AND CARDIOLOGY AND AT THIS TIME PT HAS A 30 DAY HOLTER MONITOR ON FROM CARDIOLOGY OFFICE. PT STATES SHE FELT NAUSEA BUT NOT VOMITING OR FEVER. PTS PUPILS ARE DILATED AND SLUGGISH TO REACT TO LIGHT. NO OTHER COMPLAINTS AT THIS TIME (Daniela Fallon) PT IS A 46YOF PRESENTING TO THE ED C/O CP. PT STATES SHE BEGAN TO FEEL LIKE HER HEART WAS BEATING SLOW AND FELT FAINT THEN AT THAT TIME SHE BLACKED OUT. FAMILY WAS WITH PT AT TIME AND KEPT HER FROM FALLING AND HURTING HERSELF. PT STATES SHE IS HAVING CP IN LEFT CHEST THAT IS REPRODUCIBLE WITH SHOULDER MOVEMENT AND PALPATION WELL A DEEP BREATH. PT HAS SEEN PCP AND CARDIOLOGY AND AT THIS TIME PT HAS A 30 DAY HOLTER MONITOR ON FROM CARDIOLOGY OFFICE. PT STATES SHE FELT NAUSEA BUT NOT VOMITING OR FEVER. PTS PUPILS ARE DILATED AND SLUGGISH TO REACT TO LIGHT. NO OTHER COMPLAINTS AT THIS TIME (Maik Stovall) Review of Systems - Adult - REVIEW OF SYSTEMS - ADULT Constitutional: reports: no symptoms reported Eyes: reports: no symptoms reported Ears, Nose, Mouth & Throat: reports: no symptoms reported Cardiovascular: reports: see HPI, chest pain, syncope. denies: edema, heart murmur, palpitations Respiratory: reports: see HPI, other (INSPIRATORY PAIN). denies: cough, excessive sputum production, shortness of breath Gastrointestinal: reports: see HPI, nausea. denies: abdominal pain, constipation, diarrhea, vomiting Genitourinary: reports: no symptoms reported Musculoskeletal: reports: no symptoms reported Integumentary: reports: no symptoms reported Neurological: reports: no symptoms reported Psychiatric: reports: no symptoms reported Endocrine: reports: no symptoms reported Hematologic/Lymphatic: reports: no symptoms reported Allergic/Immunologic: reports: no symptoms reported All Other Systems: Reviewed and Negative <Maik Stovall - Last Filed: 05/12/17 13:20> Past History - Adult - PAST MEDICAL HISTORY-ADULT Review of Records: reports: Old Records Reviewed, Nursing Assessment Review, Medications Reviewed, Social history reviewed & non-contributory. Major Childhood Illnesses: reports: denies history Cardiovascular: reports: HTN, hyperlipidemia Respiratory: reports: COPD Gastrointestinal: reports: GERD Obstetrical/Gynecological: reports: denies history Genitourinary: reports: denies history Musculoskeletal: reports: denies history Neurological: reports: headaches/migraines Psychiatric: reports: anxiety Endocrine/Immune: reports: Diabetes Other Conditions: reports: denies history - PRIOR SURGERIES/PROCEDURES Surgical/Procedure History: reports: reviewed, not pertinent, appendectomy, cholecystectomy, hysterectomy - IMMUNIZATION STATUS Childhood Immunizations: See Nurse Assessment Flu Vaccine: See Nurse Assessment - FAMILY HISTORY Family History: reviewed, not pertinent - SOCIAL HISTORY Smoking: quit less than 1 year Substance Use: none/never, denies Alcohol Use Frequency: never Living Situation: family <Maik Stovall - Last Filed: 05/12/17 13:20> Physical Exam-General - PHYSICAL EXAM-ADULT Initial Vital Signs Reviewed: Yes - CONSTITUTIONAL General Appearance: appears well, mild distress, slow to respond - EYES Eyes: pink conjunctivae, other (DIALATED AND SLUGGISH TO RESPOND) - HEAD, EARS, NOSE, MOUTH & THROAT HENMT: normocephalic/atraumatic, moist mucous membranes, normal ENT inspection, TMs normal, pharynx normal - NECK Neck: non-tender, full range of motion, supple, normal inspection - RESPIRATORY Respiratory: chest non-tender, lungs clear, normal breath sounds, no respiratory distress, no accessory muscle use, pain on inspiration. negative: no pleuratic chest pain, respiratory distress - CARDIOVASCULAR Cardiovascular: normal peripheral pulses, no edema, no gallop, no JVD, no murmur , bradycardia. negative: regular rate, rhythm - GASTROINTESTINAL (ABDOMEN) Abdominal Exam: normal bowel sounds, non tender, soft, no organomegaly, no pulsatile mass - LYMPHATIC Lymphatic: no adenopathy - MUSCULOSKELETAL Back Exam: normal inspection, no CVA tenderness, no vertebral tenderness Extremity: normal range of motion, non-tender, normal gait, normal inspection, no pedal edema, no calf tenderness, normal capillary refill, pelvis stable - SKIN Integumentary: normal color, normal turgor, warm/dry - NEUROLOGIC Neurologic: cloud consultant II-XII nml as tested, grossly normal, no motor/sensory deficits - PSYCHIATRIC Psych/Mental Status: normal thought content, normal thought process, oriented x 3, depressed affect. negative: normal mood/affect <Maik Stovall - Last Filed: 05/12/17 13:20> Progress - PLAN OF CARE/RESULTS Result Diagrams: 05/08/17 16:18 05/08/17 16:18 - REASSESSMENT Reassessment #2 Time Reassessed: 18:00 (ASSUMED PT CARE FROM DR. STOVALL AND EVALUATED PT.) Status: unchanged - CONSULTS/PCP/HOSPITALIST Notification #1 *Consult/PCP/Hospitalist*: DR. KRUGER-CARDIOLOGY Time Discussed: 21:00 (SPOKE WITH DR. KRUGER RE: PT ORTHOSTATICS AND CHEST PAIN/ SYNCOPE. AGREES TO ADMIT FOR OBS.) Consult Disposition: Admit #2 Consult: DR. SPEAR-HOSPITALIST Time Discussed: 21:23 Consult Disposition: Will see in ED <Shelley Lara - Last Filed: 05/08/17 21:23> - PLAN OF CARE/RESULTS Result Diagrams: 05/09/17 05:30 05/12/17 05:22 - REASSESSMENT Reassessment #1 Time Reassessed: 16:58 (PT ORTHOSTATIC TEST POSITIVE PER RN) Status: unchanged - XRAY 1 XRAY: Bilateral XRAY Study: Chest Impression: Normal (NAD - HURST) <Maik Stovall - Last Filed: 05/12/17 13:20> - PLAN OF CARE/RESULTS Progress/Plan/Lab Results: Orders Category Date Time Status Admit - [facility] Routine AdmDCTranf 05/08/17 22:41 Ordered Apply Mechanical Device [QM] ORDERED Care 05/08/17 22:41 Active Cardiac Monitoring DIRECTED Care 05/08/17 15:46 Completed ED: Orthostatic Vital Signs (E as directed Care 05/08/17 16:12 Completed ED: Orthostatic Vital Signs (E as directed Care 05/08/17 16:43 Completed Notify MD if DIRECTED Care 05/08/17 22:41 Active Nursing- MD Consult Request ROUTINE Care 05/08/17 22:41 Completed Orthostatic Vital Signs Q 8-HR ASSESS Care 05/08/17 22:41 Active Saline Loc DIRECTED Care 05/08/17 22:41 Active Saline Loc NOW Care 05/08/17 15:46 Completed Vital Signs Order Q 4-HR ASSESS Care 05/08/17 22:41 Active Z-Document. for Tele Applied ORDERED Care 05/08/17 22:41 Completed Physician/Provider Consults Routine Cons 05/08/17 22:41 Ordered Diabetic Diet Diet 05/08/17 22:23 Completed CHEST-2 VIEWS [RAD] Stat Exams 05/08/17 15:46 Completed CBC WITH ELECTRONIC DIFF [HEME] Routine Lab 05/09/17 05:30 Completed CBC WITH ELECTRONIC DIFF [HEME] Stat Lab 05/08/17 16:18 Completed CK PROFILE [SP CHEM] Stat Lab 05/08/17 16:18 Completed CK PROFILE [SP CHEM] Stat Lab 05/08/17 18:21 Completed CK TOTAL [CHEM] Q8H Lab 05/08/17 23:07 Completed CK TOTAL [CHEM] Q8H Lab 05/09/17 05:30 Completed CK TOTAL [CHEM] Q8H Lab 05/09/17 14:35 Completed COMPREHENSIVE METABOLIC PANEL [CHEM] Stat Lab 05/08/17 16:18 Completed D-DIMER [CHEM] Stat Lab 05/08/17 16:18 Completed ETOH [ALCOHOL BLOOD] Stat Lab 05/08/17 16:18 Completed LIPID PROFILE W/CALC LDL [LIPIDS] Routine Lab 05/09/17 05:30 Completed MAGNESIUM [CHEM] Stat Lab 05/08/17 16:18 Completed PRO B-NATRIURETIC PEPTIDE Stat Lab 05/08/17 16:18 Completed PROTIME WITH INR [COAG] Stat Lab 05/08/17 16:18 Completed PTT [COAG] Stat Lab 05/08/17 16:18 Completed TROPONIN T Q8H Lab 05/08/17 23:07 Completed TROPONIN T Q8H Lab 05/09/17 05:30 Completed TROPONIN T Q8H Lab 05/09/17 14:35 Completed TROPONIN T Stat Lab 05/08/17 16:18 Completed TROPONIN T Stat Lab 05/08/17 18:21 Completed URINE DRUG SCREEN Stat Lab 05/08/17 16:10 Completed 0.9% Sodium Chloride Inj [Ns] 1,000 ml Med 05/08/17 16:45 Discontinued IV 999 mls/hr Acetaminophen [Tylenol] Med 05/08/17 22:41 Discontinued 650 mg PO Q6H PRN PRN Aspirin Med 05/09/17 09:00 Discontinued 325 mg PO DAILY Aspirin Med 05/08/17 15:46 Discontinued 81 mg PO NOW ONE Bupropion X.l. [Wellbutrin Xl] Med 05/09/17 09:00 Discontinued 150 mg PO QAM Calcium Citrate/Vitamin D [Citracal + D] Med 05/09/17 09:00 Discontinued 1 each PO BID Cholecalciferol (Vit D3) [Vitamin D] Med 05/09/17 09:00 Discontinued 1,000 unit PO BID Clonazepam [Klonopin] Med 05/08/17 22:41 Discontinued 1 mg PO TID PRN PRN Gemfibrozil [Lopid] Med 05/09/17 09:00 Discontinued 600 mg PO BID Hydrocodone/APAP 10 mg/325 mg [Bethpage-10] Med 05/08/17 19:04 Discontinued 1 each PO NOW ONE Levothyroxine [Synthroid] Med 05/09/17 07:00 Discontinued 50 microgm PO DAILY@0700 Omeprazole [Prilosec] Med 05/09/17 07:00 Discontinued 20 mg PO DAILY@0700 Ondansetron [Zofran] Med 05/08/17 16:20 Discontinued 4 mg .ROUTE .STK-MED ONE Ondansetron [Zofran] Med 05/08/17 22:41 Discontinued 4 mg IV Q4H PRN PRN PRAVAstatin [Pravachol] Med 05/09/17 21:00 Discontinued 20 mg PO QHS Patient's Own Med Med 05/09/17 21:00 Discontinued 1 each PO QHS Potassium Chloride E.r. [Klor-Con] Med 05/09/17 09:00 Discontinued 20 meq PO BID Quetiapine [Seroquel] Med 05/09/17 21:00 Discontinued 100 mg PO QHS Topiramate [Topamax] Med 05/09/17 21:00 Discontinued 100 mg PO QHS Trazodone [Desyrel] Med 05/09/17 21:00 Discontinued 50 mg PO QHS Oxygen Device Routine Oth 05/08/17 22:41 Completed Telemetry [OM.EQ] Routine Oth 05/08/17 22:41 Active Transfer/Admit Order [TRANSFER] Routine Transfer 05/08/17 22:22 Completed Departure - Departure Date of Disposition Decision: 05/08/17 Time of Disposition Decision: 21:24 Certified Medical Emergency: Emergent - Critical Care Note This patient required my direct & personal management of CC.: No <GabbiShelley kearns Amelia - Last Filed: 05/08/17 21:23> - Departure Date of Disposition Decision: 05/08/17 Time of Disposition Decision: 21:23 Certified Medical Emergency: Emergent - Critical Care Note This patient required my direct & personal management of CC.: No <Maik Stovall - Last Filed: 05/12/17 13:20> - Departure DIAGNOSIS: Chest pain Qualifiers: Chest pain type: unspecified Qualified Code(s): R07.9 - Chest pain, unspecified Disposition: ADMITTED INPATIENT 09 Condition: Stable This chart was documented by the indicated scribe, (Daniela Fallon Scribe) and accurately reflects the services I performed and decisions made by me, Maik Stovall MD, as attested by the provider's signature.
[2017-05-08] MEDS ORDERED: NORCO-10 PO ONE (19:04)
--- NOTE | 2017-05-08 22:38 | HISTORY AND PHYSICAL ---
PRIMARY CARE PHYSICIAN: Dr. Samuel. CHIEF COMPLAINT: Nearly passing out. HISTORY OF PRESENTING ILLNESS: A 46-year-old female with a history of hypertension, hyperlipidemia, diabetes mellitus type 2 and bipolar disorder had presented to the emergency department with episodes of nearly she states that she was passing out. She recently had been put on event monitor by her archives technician. However she states the symptoms were worsening and subsequently she had come to the emergency department. She was evaluated in the ER and as per ER physician, case was discussed with cardiology who recommended she be admitted for observation for further evaluation and management. At the time of my examination she had denied any headache, vision changes, fevers, chills, nausea, vomiting, diarrhea, hemoptysis, melena, weight changes, but complained of some mild chest pain and not feeling well. PAST MEDICAL HISTORY: Includes hypertension, hyperlipidemia, diabetes mellitus type 2, COPD, anxiety disorder, bipolar. PAST SURGICAL HISTORY: Bilateral knee surgery, wrist surgery, cholecystectomy, appendectomy, hysterectomy, neck surgery, back surgery. ALLERGIES: To Cipro and sulfa. CURRENT MEDICATIONS: Listed in MAR. SOCIAL HISTORY: She currently denies any history of smoking, alcohol or illicit drug use. FAMILY HISTORY: No history of coronary disease. REVIEW OF SYSTEMS: Twelve point system review of systems is as in HPI. Other systems all negative. PHYSICAL EXAMINATION: GENERAL: Cooperative, friendly female. She is resting comfortably now. VITAL SIGNS: Temperature 97.7 degrees, pulse 58, respiration 14 blood pressure 143/80. HEENT: Atraumatic, normocephalic. Extraocular movements intact. PERRLA. NECK: Supple. CHEST: Clear to auscultation. CARDIOVASCULAR: Regular rate and rhythm. ABDOMEN: Soft, nontender. Positive bowel sounds. EXTREMITIES: No edema. NEURO: She is awake, alert, oriented x3. : No bladder distention. SKIN: Warm. LABORATORIES AND STUDIES: WBCs 8.73, hemoglobin 12.9, hematocrit 37.0, platelets 244,000. Sodium 132, potassium 3.6, chloride 99, CO2 is 21, BUN is 10, creatinine 0.7, glucose is 155. Troponin 0.010. ASSESSMENT: A 46-year-old female with a history of hypertension, diabetes mellitus type 2, hyperlipidemia and chronic obstructive pulmonary disease had presented to emergency department several days history of having spells such that she was going to pass out. She was recently put on an event monitor and due to her persistent symptoms it was thought that we would place her in for observation for further evaluation management. ASSESSMENT: 1. Near syncope. 2. Hypertension. 3. Diabetes mellitus type 2. 4. Chronic obstructive pulmonary disease. 5. Bipolar disorder. PLAN: 1. We will admit patient to medical floor with telemetry. 2. We will check orthostatic blood pressure and pulse. 3. We will consult her archives technician. 4. We will monitor blood pressure closely. 5. Monitor blood glucose and put patient on sliding scale insulin regimen. 6. We will continue with DuoNeb p.r.n. 7. We will restart home medications. 8. Put patient on DVT prophylaxis with SCDs. 9. We will continue to follow and reassess. cc: Mu Simon MD
[2017-05-09] MEDS: KLONOPIN PO PRN ×3 (00:26→16:32)
[2017-05-09] MEDS: ZOFRAN IV PRN ×3 (00:26→16:32)
[2017-05-09] MEDS: TYLENOL PO PRN (00:26)
[2017-05-09] MEDS ORDERED: NORCO-5 PO ONE (04:36)
[2017-05-09 06:22] LABS: MANUAL DIFF NEEDED? NO
[2017-05-09 06:25] LABS: BASO% 0.3 % (0.0-0.8); EOS# 0.06 X1000 (0.0-0.7); EOS% 0.9 % (0.0-10.0); HEMATOCRIT 34.4 % (37.0-47.0); HEMOGLOBIN 11.9 g/dL (12.0-16.0); LYMPH# 2.39 X1000 (1.2-3.4); LYMPH% 37.7 % (20.5-51.1); MCH 30.6 PG (27-31); MCHC 34.6 g/dL (33-37); MCV 88.4 FL (81-99); MONO# 0.37 X1000 (0.11-0.59); MONO% 5.8 % (1.7-9.3); MPV 10.9 FL (7.4-10.4); NEUT% 55.3 % (42.2-75.2); PLT 216 X1000 (130-400); RBC 3.89 XMIL (4.2-5.4)
[2017-05-09 06:37] LABS: HDL 43 mg/dL (45-65); LDL 47 mg/dL; TRIGLYCERIDES 110 mg/dL (35-135); VLDL 22 mg/dL
[2017-05-09] MEDS: KLOR-CON PO SCH ×2 (09:02→21:14)
[2017-05-09] MEDS: CITRACAL + D PO SCH ×2 (09:03→21:14)
[2017-05-09] MEDS: LOPID PO SCH ×2 (09:03→21:14)
[2017-05-09] MEDS: VITAMIN D PO SCH ×2 (09:03→21:14)
[2017-05-09] MEDS: WELLBUTRIN XL PO SCH (09:03)
[2017-05-09] MEDS: ASPIRIN PO SCH (09:03)
[2017-05-09] MEDS: PRILOSEC PO SCH (09:11)
[2017-05-09] MEDS: SYNTHROID PO SCH (09:11)
[2017-05-09] MEDS ORDERED: TORADOL IV ONE (10:19)
--- NOTE | 2017-05-09 11:13 | PROGRESS NOTE ---
DATE: 05/09/2017 SUBJECTIVE: The patient says that she feels depressed. She has been having syncope and near syncopal spells for the last 3 or 4 weeks. Apparently, had CPR performed about 3 weeks ago by significant other as she quit breathing and CPR went on for 5-7 minutes. Patient has had a cardiac workup with what sounds like a stress test, echocardiogram, event monitor placing, and a cardiac catheterization. She has continued to have these episodes. She does get some tingling all over and some nausea which could be consistent with a hyperventilation syndrome. Apparently, it has been noted that her heart rate gets down in the 30s. She could be having a Lakhani-Vera attack but she has had her gallbladder removed already. She has had some chest pain but this appears to be chest wall pain. She says it started before she had the CPR and she is tender to palpation over the anterior chest, more on the left than on the right. Patient does have some emotional overlay. It is a little bit hard for me to get information from her. She seems somewhat disgusted about all of this and wonders why this is happening. She has had some low pulse rates here in the hospital with one being 47, several in the 50s, and then some as high as 73 but most have been lower. OBJECTIVE: Vital Signs: Blood pressure is 122/81, respirations 16, pulse 59, temperature 98.5 degrees Fahrenheit. HEENT: She is normocephalic. EOMs intact. PERRLA. Throat clear. Lungs: Clear to auscultation and percussion without rhonchi, rales, or wheezes. Heart: Regular rate rhythm without murmurs, gallops, or friction rubs. Abdomen: Soft with active bowel sounds. No organomegaly or tenderness. Musculoskeletal: She does have chest wall tenderness on palpation. She says she just finished a steroid pack for her low back pain and it did not seem to help her back or her chest. Neurological Examination: Cranial nerves 2-12 intact grossly. Laboratory Data: She has not had an MRI scan of her head apparently or even a CT scan in her workup, though this does sound more cardiac in nature. She has complained of headaches, however. Looking back at old records, however, show that in March, on a lumbar spine CT scan, she had a head and cervical CT scan on April 07, she had a cardiac catheterization it looks like on 04/19/2017 so she has had some workup that she denied because probably she forgot this. If nothing else is found, one might consider an MRI scan of her head but with her bradycardia, I suspect that her syncope is caused from a cardiac sores and I wonder if she could have a sick sinus syndrome and might need a pacemaker. Certainly, cardiology is consulted and will help make that decision. ASSESSMENT: 1. Syncope. 2. Headaches. 3. Chest wall pain, possible costochondritis. 4. History of bipolar illness. 5. Adult onset diabetes mellitus. 6. Nausea. PLAN: She is allergic to sulfa and allergic to ciprofloxacin. I would consider giving her some steroids but since she had some and she is a diabetic, I think I will give her some Toradol instead. She has also had some thyroid issues in the past. We will check a thyroid profile. cc: MD Nate Xavier Jr, MD
[2017-05-09] MEDS: HUMULIN R SUBQ SCH ×3 (11:36→21:14)
--- NOTE | 2017-05-09 20:54 | Diag Imaging Result Doc PS360 ---
EXAM: XRAY HIP UNILATERAL RT HISTORY: fall TECHNIQUE: COMPARISON: 03/13/2017 FINDINGS: No fracture. No dislocation. IMPRESSION: No acute bony injury. Electronically signed by Doug Charlton 05/09/2017 8:51 PM
[2017-05-09] MEDS: PRAVACHOL PO SCH (21:13)
[2017-05-09] MEDS: TOPAMAX PO SCH (21:14)
[2017-05-09] MEDS: SEROQUEL PO SCH (21:14)
[2017-05-09] MEDS: DESYREL PO SCH (21:14)
[2017-05-09] MEDS: PATIENT'S OWN MED PO SCH (21:28)
[2017-05-10 05:53] LABS: AGAP 9; BUN 10 mg/dL (8-22); CALCIUM 8.8 mg/dL (8.8-10.2); CHLORIDE 107 mmol/L (98-107); COSMO 288; SODIUM 141 mmol/L (136-145); TCO2 25 mmol/L (25-35)
[2017-05-10] MEDS: KLONOPIN PO PRN ×3 (05:53→19:57)
[2017-05-10] MEDS: ZOFRAN IV PRN ×2 (05:53→15:57)
[2017-05-10] MEDS: SYNTHROID PO SCH ×2 (05:53→06:45)
[2017-05-10] MEDS: PRILOSEC PO SCH ×2 (05:53→06:44)
[2017-05-10] MEDS: HUMULIN R SUBQ SCH ×5 (05:54→21:14)
[2017-05-10] MEDS: TYLENOL PO PRN (06:02)
--- NOTE | 2017-05-10 07:34 | PROGRESS NOTE ---
DATE: 05/10/2017 SUBJECTIVE: Ms. Noel is doing fair. Patient admitted with syncope and fall. The patient had event monitor on. The patient claims she was walking across the room. She fell and passed out for a few minutes. She denied any chest pain, palpitations prior to fall. No seizure-type episode. Studio Coordinator following patient with us. No hypoglycemic episode. The etiology of her syncope not known. The patient does have gastroparesis. Yesterday patient put her phone to charge. She was turning around. The patient claims she got dizzy and fell. Complaining of pain in her right hip. We did an x-ray and it was negative for fracture. The patient is still complaining of significant pain. I am going to get orthopedic evaluation. She denied any unusual cough or expectoration. OBJECTIVE: Vital Signs: Noted. Neck: Supple. No JVD, thyromegaly, or lymphadenopathy. Chest: Bilateral good air entry present. CVS: S1 and S2 heard. Abdomen: Soft. No distention. Bowel sounds present. Extremities: No cyanosis, clubbing. No acute DVT. Patient does have movement of right hip, minimally painful. CONSIDERATION: 1. Syncopal episode. Etiology not known. Studio Coordinator is going to evaluate the patient. 2. Right hip pain. Most likely bruised hip. I am going to get an orthopedic surgeon to evaluate the patient today. 3. Hypothyroidism. 4. Noninsulin-dependent diabetes mellitus. 5. The patient does have gastroparesis. 6. Bipolar disorder. PLAN: Overall plan discussed with the patient. Fall precaution. After winding lathe operator evaluation, will make necessary recommendations. cc: Nate Samuel MD
[2017-05-10] MEDS: WELLBUTRIN XL PO SCH (08:22)
[2017-05-10] MEDS: CITRACAL + D PO SCH ×2 (08:22→21:03)
[2017-05-10] MEDS: ASPIRIN PO SCH (08:22)
[2017-05-10] MEDS: KLOR-CON PO SCH ×2 (08:22→21:04)
[2017-05-10] MEDS: VITAMIN D PO SCH ×2 (08:23→21:04)
[2017-05-10] MEDS: LOPID PO SCH ×2 (08:23→21:04)
[2017-05-10] MEDS: NORCO-5 PO PRN ×2 (08:33→14:54)
--- NOTE | 2017-05-10 10:57 | CONSULTATION ---
DATE OF CONSULTATION: 05/10/2017 REASON FOR CONSULTATION: Cardiology was consulted for a near syncopal episode. HISTORY OF PRESENT ILLNESS: Patient is a 46-year-old, lady with a history of hypertension, hyperlipidemia, diabetes, bipolar disorder who had presented to the emergency room. She said that she passed out. She has there been wearing a monitor. She recently had been put on the event monitor. She was evaluated in the ER and subsequently admitted. In discussing with patient, she did not have any palpitations. She said she just fell forward and was weak. She did not lose consciousness. She was aware somewhat of her surroundings. Family did not notice any seizure disorder. She denies any chest pain suggestive of angina. There are no palpitations associated with these symptoms. Her blood sugars were within normal range, given her diabetic status. REVIEW OF SYSTEMS: A 14-point review of system was done. GI System: There is no history of nausea, vomiting, or diarrhea. There is no history of hematemesis or melena. Central Nervous System: As above. In addition, there are no headaches. There is no focal weakness to suggest a CVA or TIA. However, she had generalized weakness. System: There is no dysuria or hematuria. Respiratory System: There is no history of cough, expectoration, or hemoptysis. There is no history of fevers or chills. Endocrine System: Stable. PAST MEDICAL HISTORY: 1. Hypertension. 2. Hyperlipidemia. 3. Diabetes mellitus. 4. COPD. 5. Anxiety disorder. 6. Bipolar. 7. Has had bilateral knee surgery. 8. Wrist surgery. 9. Cholecystectomy. 10. Appendectomy. 11. Hysterectomy. 12. Neck surgery. 13. Back surgery. 14. Left heart catheterization on 04/19/2017 that revealed an ejection fraction of 60%, normal epicardial coronary arteries. ALLERGIES: Allergic to Cipro and sulfonamides. HOME MEDICATIONS: Include pravastatin 20, levothyroxine 50, aspirin 81 mg a day, montelukast 10, ranitidine 150, Seroquel 100, omeprazole 20, potassium supplements, calcium citrate, diclofenac sodium, clonazepam 1 mg p.o. t.i.d., gemfibrozil 600 p.o. b.i.d., losartan 50, bupropion, topiramate, trazodone, metformin 1500 p.o. daily. SOCIAL HISTORY: She does not smoke. There is no history of alcohol abuse. PHYSICAL EXAMINATION: Vital Signs: Blood pressure was 140/80. Cardiovascular System: Normal jugular venous pressure. There is no thyromegaly. There is no carotid bruit. First and second heart sounds were heard. There is no S3, S4, or gallop. Respiratory System: Normal air entry. No crepitations or rhonchi. Abdomen: Soft, nontender. There was no guarding or rigidity. Bowel sounds were heard. Central Nervous System: Alert and was moving all 4 extremities. Extremities: Examination of extremities revealed no pedal edema. HEENT: Atraumatic. Pupils were equal and reacting to light. LABORATORY DATA: WBC 8.7, hemoglobin 12, hematocrit 37, platelet count of 244,000. Sodium 132, potassium 3.6, BUN 10, creatinine 0.7, glucose 155. Cardiac enzymes are negative. ASSESSMENT AND PLAN: 1. Ms. Bernadette Noel is a 46-year-old, lady with a history of hypertension, diabetes, bipolar disorder, and hypothyroidism who is admitted with having fallen and nearly passing out. She is wearing a 30 day loop monitor and on interrogation, there was no bradyarrhythmia or tachyarrhythmia to account for her symptomatology, and her telemetry here as well did not reveal any abnormal rhythm pattern. I suspect these falls, which has been frequent, could be related to neuromuscular. I am not sure whether there is any atypical seizure activity. She has multiple other medical issues. Would recommend a neurology consultation. 2. From a cardiac standpoint, I have not made any other changes. We will continue to keep that monitor on how her for the total period of 30 days. 3. Hypertension. Blood pressure is under control. I have not made any changes. 4. She has diabetes. Recommend continuing her medications. 5. She has bipolar disorder. I have not made any changes to her medications. Thank you for the consult. We will follow hospital course. cc: MD Nate Darby MD
--- NOTE | 2017-05-10 11:29 | EKG Report ---
Test Performed on : 05/10/2017 10:39:46 AM Test Reason : syncope Blood Pressure : / mmHG Vent. Rate : 055 BPM Atrial Rate : 055 BPM P-R Int : 146 ms QRS Dur : 080 ms QT Int : 440 ms P-R-T Axes : 019 003 014 degrees QTc Int : 420 ms Sinus bradycardia. Otherwise normal ECG When compared with ECG of 08-MAY-2017 15:44, (Unconfirmed) Nonspecific T wave abnormality no longer evident in Anterior leads Confirmed by Caesar Macedo MD ([id number]) on 05/11/2017 9:06:52 AM
--- NOTE | 2017-05-10 11:57 | Diag Imaging Result Doc PS360 ---
PELVIS W/O CONTRAST - 05/10/2017 INDICATION: R/O occult femur/hip fracture TECHNIQUE: A CT dose reduction protocol was used. COMPARISON: 04/23/2017 FINDINGS: Bones are intact and normally aligned. There is degeneration of the lower lumbar spine stable from prior. The edema over the right common femoral artery has resolved. No bowel obstruction or inflammation. Normal appendix. There is a right ovarian cyst measuring about 3.5 cm. This is new from prior. The left ovarian cyst has disappeared. Urinary bladder and rectum are normal. IMPRESSION: Right ovarian cyst. New from the prior exam. Otherwise negative. Electronically signed by Manuel Rousseau 05/10/2017 11:54 AM
--- NOTE | 2017-05-10 13:02 | CONSULTATION ---
DATE OF CONSULTATION: 05/10/2017 ADMITTING PHYSICIAN: Nate Samuel MD CONSULTING PHYSICIAN: Mendel Storm MD CHIEF COMPLAINT: Right hip pain. HISTORY OF PRESENT ILLNESS: Ms. Noel is a 46-year-old white female who was admitted on 05/08/2017 with the complaint of a near syncopal episode. This past evening she experienced a fall while moving in her hospital room and injured her right hip. She has difficulty weightbearing. Radiographic evaluation of the right hip was undertaken for evaluation of bony injury. Orthopedics was consulted to assist in the management of her right hip injury. PRIMARY CARE PHYSICIAN: Nate Samuel MD ALLERGIES: 1. Ciprofloxacin. 2. Sulfa drugs. PAST MEDICAL HISTORY: 1. Hypertension. 2. Hyperlipidemia. 3. Noninsulin-dependent diabetes mellitus. 4. Bipolar disorder. 5. Chronic obstructive pulmonary disease. 6. Anxiety disorder. 7. Gastroesophageal reflux disease. 8. Gastroparesis. PAST SURGICAL HISTORY: 1. Bilateral knee arthroscopies. 2. Wrist open reduction internal fixation of the right side. 3. Cholecystectomy. 4. Appendectomy. 5. Hysterectomy. 6. Cervical surgery. 7. Back surgery. 8. Breast reduction surgery. SOCIAL HISTORY: The patient is a remote smoker. HOME MEDICATIONS: 1. Desyrel 50 mg by mouth at bedtime. 2. Topamax 100 mg by mouth at bedtime. 3. Ranitidine 150 mg by mouth daily. 4. Seroquel 1 tablet by mouth at bedtime. 5. Klor-Con 20 mEq by mouth twice daily. 6. Pravachol 20 mg at bedtime. 7. Glucophage 1500 mg by mouth daily. 8. Singulair 10 mg by mouth daily. 9. Cozaar 50 mg by mouth daily. 10.Synthroid 50 mcg by mouth daily. 11.Lopid 600 mg by mouth twice daily. 12.Diclofenac 50 mg by mouth twice daily. 13.Klonopin 1 mg by mouth up to 3 times a day as needed. 14.Vitamin D3 supplement 1000 units by mouth twice daily. 15.Calcium citrate 1 tablet by mouth twice daily. 16.Bupropion 150 mg by mouth in the morning. 17.Aspirin 81 mg by mouth in the morning. 18.Tylenol 650 every 6 hours as necessary. REVIEW OF SYSTEMS: HEENT: No known history of stroke or cerebrovascular disease. She has experienced some recent near syncopal events for which medical evaluation has been previously undertaken. Cardiac: She has a history of hypertension. No history of heart disease or valvular heart disease. Denies chest pain, pressure or other anginal equivalents at this time. Pulmonary: The patient is a remote smoker. She has a history of chronic obstructive pulmonary disease. Gastrointestinal: She has a history of gastroparesis and is treated for gastroesophageal reflux disease. Genitourinary: Denies any recent kidney or bladder infection or dysfunction. Neurologic: She is managed for bipolar disorder and anxiety disorder. Musculoskeletal: She is here today with the complaint of right hip pain. Other: She is treated for noninsulin-dependent diabetes mellitus and hyperlipidemia. PHYSICAL EXAMINATION: The patient is resting in bed. She is able to answer all questions and is articulate. HEENT: Head is normocephalic and atraumatic. Pupils are equal, round and reactive to light. Nares are patent. Throat without exudate. Heart: Regular rate and rhythm. No murmurs, gallops or rubs. Lungs: Clear to auscultation bilaterally. Gastrointestinal: Her abdomen is round. Bowel sounds are present. It is nontender. Genitourinary: Not examined. Neurologic: Gross motor function is intact and sensory is intact to soft touch. Musculoskeletal: Right hip has limited range of motion secondary to pain of the right hip. She has tenderness to palpation proximally overlying the greater trochanter. Neurovascular status is intact with a good peripheral pulse. IMPRESSION: Right hip contusion. Radiographic evaluation was suspicious for some bony abnormality overlying the right greater trochanter. PLAN: We will order a CT scan of the pelvis for further evaluation of right hip bony injury. Thank you for including us in the care of Ms. Noel. We will continue to follow her with you as necessary. Dictated by DONNY Luna for Mendel Storm MD cc: DONNY Luna MD Bharat K. Vakharia, MD
[2017-05-10] MEDS: MIRALAX PO SCH (13:42)
[2017-05-10] MEDS: DESYREL PO SCH (21:03)
[2017-05-10] MEDS: PRAVACHOL PO SCH (21:03)
[2017-05-10] MEDS: TOPAMAX PO SCH (21:03)
[2017-05-10] MEDS: SEROQUEL PO SCH (21:04)
[2017-05-10] MEDS: KLONOPIN PO SCH (21:13)
[2017-05-10] MEDS ORDERED: HALDOL IV ONE (21:59)
[2017-05-11] MEDS: PATIENT'S OWN MED PO SCH ×2 (02:01→23:12)
[2017-05-11] MEDS: SYNTHROID PO SCH (06:04)
[2017-05-11] MEDS: PRILOSEC PO SCH (06:04)
[2017-05-11] MEDS: HUMULIN R SUBQ SCH ×4 (06:05→22:21)
[2017-05-11 06:11] LABS: AGAP 9; BUN 7 mg/dL (8-22); CALCIUM 9.8 mg/dL (8.8-10.2); CHLORIDE 107 mmol/L (98-107); COSMO 284; POTASSIUM 4.1 mmol/L (3.5-5.1); SODIUM 142 mmol/L (136-145); TCO2 26 mmol/L (25-35)
--- NOTE | 2017-05-11 06:54 | CONSULTATION ---
DATE OF CONSULTATION: 05/10/2017 REFERRING PHYSICIAN: The patient is seen in consultation at the request of Dr. Engle. REASON FOR EVALUATION: Evaluation of recurrent syncope. HISTORY OF PRESENT ILLNESS: The patient is a 46-year-old, left-handed female with a history of type 2 diabetes, hypertension, hyperlipidemia, depression, anxiety, and bipolar disorder who presented with recurrent syncope. The patient and her cousin provide the history. She says this started about 2 months ago and it occurs when she has already been up and about on her feet for at least 15-20 minutes. She is adamant that this does not occur with recent position changes. She says her heart rate drops into the 30s as recorded by some sort of home monitoring device. She feels dizzy and lightheaded, like feeling guillermina, has generalized weakness and then she has loss of consciousness. She is typically completely unconscious for 3-5 minutes with eyes closed and no abnormal body movements. She has had one prolonged event where she was completely unresponsive and unconscious for 5-10 minutes. During this prolonged event, the cousin performed CPR on the patient because the cousin reported that she was not breathing. The patient was not blue during this time of prolonged unresponsiveness. She is typically confused for an unknown amount of time after these events. She is unable to answer questions. She does recall feeling presyncopal during the events and seems to have at least some recollection of events immediately upon awakening. She denies palpitations but does endorse some shortness of breath. She also endorses "pressure" chest pain during the events and says that it feels like someone is "sitting on me". She does not have any bowel or bladder incontinence with the events. No tongue biting. Again, there are no abnormal movements and her eyes are closed. She is motionless. She has also more recently had some repeated near syncopal events where she just felt generally weak as she feels prior to the syncopal events, although she did not pass out completely during these times. She has no history of brain infection and no major head injuries. She has been monitored with an event monitor and currently has a loop monitor in place, has been followed by cardiology. REVIEW OF SYSTEMS: Balance of 12 was conducted and was negative except that mentioned in the HPI and as follows: She reports that she typically does not have much of an appetite. She does have nausea at times. No vomiting. No diarrhea. She reports going to the bathroom maybe once every 2 weeks. She reports sexual dysfunction when asked as well and when further asked to detail this, she says that it just hurts if she tries to have intercourse. She does not fully explain this. She has not had any dysuria or hematuria or urinary symptoms. She says that she is always "cold". No numbness or tingling. Her hemoglobin A1c was. 5.4 last month and typically under good control. PAST MEDICAL HISTORY: Type 2 diabetes, hypertension, hyperlipidemia, COPD, depression, anxiety, bipolar disorder, bilateral knee surgeries, wrist surgery, cholecystectomy, appendectomy, hysterectomy, neck and back surgery, a left heart catheterization in April of this year with an ejection fraction of 60% and normal coronary arteries, migraines. ALLERGIES: She reports being allergic to Cipro and sulfonamides. When asked what symptoms she has with these medications, she says that she has not had these medications but that her aunt had Bryant-Cristian syndrome and they were told that no one in the family should take these medications. HOME MEDICATIONS: Pravastatin 20, levothyroxine 50, aspirin 81, montelukast 10 , ranitidine 150, Seroquel 100, omeprazole 20, clonazepam 1 mg p.o. t.i.d., gemfibrozil 600 mg b.i.d., losartan, bupropion, topiramate, trazodone, metformin, diclofenac sodium, calcium citrate , and potassium supplement. SOCIAL HISTORY: She is a nonsmoker. No alcohol abuse. FAMILY HISTORY: No history of seizures or strokes. No autoimmune illnesses. There is a family member with cervical cancer. PHYSICAL EXAMINATION: Vital Signs: Afebrile, blood pressure 117/72, pulse 65, varies from 47-65. Respirations 20, 95% on room air. General: She is a female lying supine in bed. No acute distress. Her cousin is at the bedside. Neck: Supple. No carotid bruits. Cardiovascular: Regular rate and rhythm. No murmurs are appreciated. Pulmonary: Clear to auscultation anteriorly. Abdomen: Soft, nontender, nondistended. Extremities : Warm, well perfused, without edema. Skin: Intact. No lesions. Neurologic Examination: Mental status: She is awake and alert. She is oriented, appropriately conversant. Language is intact. Cranial nerves: Her pupils are equal and reactive briskly. Conjugate gaze. Ocular movements are full. Face is symmetric with equal activation and strength. Facial sensation is intact. Tongue is midline. Palate elevates symmetrically. Shoulder shrug is full. Motor exam: No drift. Strength is intact and symmetric. This is with the exception of testing of the right lower extremity due to hip pain from a recent fall. There is no evidence of incoordination on exam. There is no evidence of a distal symmetric sensory neuropathy. Reflexes are reduced and symmetric. No clonus. Toes are downgoing. Gait was untested. DIAGNOSTICS: Hip x-ray was without acute bony injury. A Pelvic CT showed a right ovarian cyst which was new from prior exam. Otherwise negative. Echocardiogram showed sinus bradycardia with a rate of 55, otherwise normal. A head CT was performed just last month and was negative for acute disease. There was also a C-spine CT that was stable, that was showing an anterior fusion at C6-7. Her white count is normal, hemoglobin 12, hematocrit 34, platelets 216,000. INR 1.06. Chemistry panel unremarkable. Glucose of 229 and 155. Liver enzymes were not elevated. Cortisol 8.4. Thyroid studies within normal range. Toxicology was positive for benzodiazepines which she takes at home. ASSESSMENT AND PLAN: This is a 46-year-old, female with a history of type 2 diabetes, hypertension, hyperlipidemia, depression, anxiety, and bipolar disorder who is admitted with a 2 months' duration of recurrent syncopal and presyncopal events. These are of unclear etiology. The description of her being completely unconscious and unresponsive for lengthy periods of time is unusual. There is no history of seizure disorder. She has reasonably well controlled diabetes with an A1c in the range of 5 just last month and she has no obvious evidence of a distal symmetric neuropathy on exam today. She has no muscle weakness. She had been wearing her loop monitor when having these recent spells and per cardiology, the interrogation did not show any bradyarrhythmia, tachyarrhythmia, or arrhythmia otherwise during these events. At this point, I do not have an obvious explanation at this time for what is causing her symptoms. I would like to look at orthostatic vital signs, though the patient is adamant that her symptoms do not happen just after standing or shortly after standing but rather they occur after she has been up and about for at least 15-20 minutes. We will order a routine EEG. Thank you for this consultation. We will follow. cc: MD Nate Tenorio MD MTDD
[2017-05-11] MEDS: WELLBUTRIN XL PO SCH (08:59)
[2017-05-11] MEDS: LOPID PO SCH ×2 (08:59→21:52)
[2017-05-11] MEDS: KLONOPIN PO SCH ×3 (08:59→21:56)
[2017-05-11] MEDS: VITAMIN D PO SCH ×2 (08:59→21:52)
[2017-05-11] MEDS: KLOR-CON PO SCH ×2 (08:59→21:53)
[2017-05-11] MEDS: CITRACAL + D PO SCH ×2 (08:59→21:52)
[2017-05-11] MEDS: ASPIRIN PO SCH (08:59)
[2017-05-11] MEDS: MIRALAX PO SCH (08:59)
--- NOTE | 2017-05-11 09:36 | PROGRESS NOTE ---
DATE: 05/11/2017 SUBJECTIVE: Ms. Noel is doing better. Last night, the patient was very angry and upset. She was verbally abusing the staff and her yelling. She wanted the other patient in the room to be moved out. Nurses did that to make her happy. She was trying to hit the staff. They had to call the security and also the police because staff was scared about her agitation. The patient was given extra Klonopin and also the Haldol injection. This morning, the patient is doing better. PHYSICAL EXAMINATION: Vital Signs: Her vital signs noted. Neck: Supple. No JVD. Lungs: Clear. Heart: S1 and S2 heard. Abdomen: Soft, globular. Bowel sounds present. [employer] COMPTROLLER: Alert, awake. Able to move all 4 limbs. Musculoskeletal: Minimal soreness in the right hip. Orthopedic evaluation noted. IMPRESSION AND PLAN: We are going to get physical therapy, pain management. Aerodynamics Engineer's recommendation reviewed. Neurology consult requested. We did increase her Klonopin to 1 mg t.i.d. The patient does have bipolar disorder. Her problems include multiple near-syncope and syncopal episodes. Yesterday, patient claimed she fell. There was a cord on the floor but according to nurses, she was sitting on the floor. No major fall or trauma. Her vital signs noted. No major postural drop in blood pressure. Neck is supple. No JVD. Lab data reviewed. Physical therapy evaluation. On CT scan, there was question about ovarian cyst. The patient claims she had bilateral oophorectomy. I am going to discuss with radiologist. Also, we are waiting for neurologist evaluation, physical therapy evaluation. Continue rest of the treatment. Close observation. cc: Nate Samuel MD
[2017-05-11] MEDS ORDERED: DULCOLAX PR ONE (10:47)
[2017-05-11] MEDS: NORCO-5 PO PRN ×2 (13:39→21:53)
[2017-05-11] MEDS: ZOFRAN IV PRN ×2 (13:40→21:53)
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
--- NOTE | 2017-05-11 16:17 | EEG REPORT ---
DATE: 05/10/2017 DATE OF SERVICE: 05/11/2017. REFERRING PHYSICIAN: Dr. Rae, Dr. Samuel. EEG #: [id number]. ORDER CLERK: Claudia Zuniga. BACKGROUND INFORMATION: Technique: A digitally recorded EEG is obtained with 1 additional channel for EKG. HISTORY OF PRESENT ILLNESS: This is a 46-year-old female with history of diabetes ,hypertension, hyperlipidemia, depression, anxiety and bipolar disorder who presents with recurrent syncope. An EEG is ordered to detect evidence of possible seizures. MEDICATION: Notable for clonazepam, topiramate, bupropion, and trazodone. EEG FINDINGS: A posterior dominant 9.5 hertz alpha rhythm is seen symmetrically in the occipital regions and attenuates with eye opening. The background consists of mixed alpha and beta range frequencies. No focal slowing is seen. No epileptiform discharges and no seizures are seen. Hyperventilation did not significantly alter the background. Photic stimulation induces a normal photic driving response at multiple frequencies. The patient has 1 brief period of drowsiness, but stage 2 sleep is not achieved. IMPRESSION AND CLINICAL CORRELATION: Normal awake and drowsy routine EEG. Of note, a normal EEG does not rule out epilepsy. Clinical correlation is advised. cc: MD Nate Tenorio MD
[2017-05-11] MEDS ORDERED: LINZESS PO ONE (17:16)
--- NOTE | 2017-05-11 18:18 | PROGRESS NOTE ---
DATE: 05/11/[address] scan was reviewed of the hip. It showed no occult fracture or greater trochanter fracture. I have discussed the results of this with her. There was an incidental cyst on the CT scan which she is aware of. I have discussed with her that is not in my area of specialty and to follow up with Dr. Samuel about that. From an orthopedic standpoint, she can be mobilized as tolerated. No further followup is necessary. If she continues to have some hip pain characteristic of bursitis for more than 2-3 weeks, will consider followup in the office and injection. Thanks again for asking us to be involved in her care. cc: MD Nate Briones MD
--- NOTE | 2017-05-11 18:22 | Diag Imaging Result Doc PS360 ---
EXAM: US PELVIC NON-LANDSCAPE HORTICULTURE INSTRUCTOR COMPLETE HISTORY: pelvic mass TECHNIQUE: Transabdominal and endovaginal scan COMMENT: The uterus is surgically absent. The left ovary is not identified. The right ovary is 4.4 x 3.2 x 4.2 cm in diameter. There is a complex cystic lesion present in the right ovary measuring 3 x 1.8 x 1.4 cm and a second right ovarian lesion measuring 3.1 x 3.2 x 2.5 cm. Both have the appearance of hemorrhagic cysts. The larger of the two may have more sediment. The possibility of endometriosis cannot be excluded. There is a tiny amount of free fluid in the pelvis. IMPRESSION: Right ovarian complex cysts. Electronically signed by Pablo Barnes 05/11/2017 6:20 PM
[2017-05-11] MEDS: PRAVACHOL PO SCH (21:52)
[2017-05-11] MEDS: TOPAMAX PO SCH (21:52)
[2017-05-11] MEDS: DESYREL PO SCH (21:52)
[2017-05-11] MEDS: SEROQUEL PO SCH (21:53)
[2017-05-12] MEDS: PRILOSEC PO SCH ×2 (05:58→06:29)
[2017-05-12] MEDS: SYNTHROID PO SCH ×2 (05:59→06:29)
[2017-05-12] MEDS: NORCO-5 PO PRN (06:01)
[2017-05-12 06:14] LABS: AGAP 12; BUN 8 mg/dL (8-22); CALCIUM 9.2 mg/dL (8.8-10.2); CHLORIDE 107 mmol/L (98-107); COSMO 285; POTASSIUM 3.8 mmol/L (3.5-5.1); SODIUM 142 mmol/L (136-145); TCO2 23 mmol/L (25-35)
[2017-05-12] MEDS: HUMULIN R SUBQ SCH ×2 (06:29→10:57)
--- NOTE | 2017-05-12 07:17 | Diag Imaging Result Doc PS360 ---
EXAM: US PELVIC NON-INSURANCE COMMISSIONER COMPLETE HISTORY: pelvic mass TECHNIQUE: Transabdominal and endovaginal scan COMMENT: The uterus is surgically absent. The left ovary is not identified. The right ovary is 4.4 x 3.2 x 4.2 cm in diameter. There is a complex cystic lesion present in the right ovary measuring 3 x 1.8 x 1.4 cm and a second right ovarian lesion measuring 3.1 x 3.2 x 2.5 cm. Both have the appearance of hemorrhagic cysts. The larger of the two may have more sediment. The possibility of endometriosis cannot be excluded. There is a tiny amount of free fluid in the pelvis. IMPRESSION: Right ovarian complex cysts. Electronically signed by Pablo Barnes 05/11/2017 6:20 PM
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
[2017-05-12 08:32] VITALS: BP 110/74
[2017-05-12] MEDS: MIRALAX PO SCH (09:55)
[2017-05-12] MEDS: KLOR-CON PO SCH (09:56)
[2017-05-12] MEDS: KLONOPIN PO SCH (09:56)
[2017-05-12] MEDS: LOPID PO SCH (09:56)
[2017-05-12] MEDS: WELLBUTRIN XL PO SCH (09:56)
[2017-05-12] MEDS: CITRACAL + D PO SCH (09:56)
[2017-05-12] MEDS: ASPIRIN PO SCH (09:56)
[2017-05-12] MEDS: VITAMIN D PO SCH (09:57)
== END 2017-05-12 11:30 | disposition home or self-care (01) ==
LOC: ED 15:36 → 3N 15:36 → SUATTDRO 22:59 → OBSVTOIN 22:59 → 4N 23:58
PROVIDERS: ADMIT Internal Medicine; ATTEND Internal Medicine

== ENCOUNTER 2019-02-14 10:23 | Inpatient (IN) ==
--- NOTE | 2019-02-14 10:47 | EKG Report ---
Test Performed on : 02/14/2019 10:30:29 AM Test Reason : seizure Blood Pressure : / mmHG Vent. Rate : 117 BPM Atrial Rate : 117 BPM P-R Int : 156 ms QRS Dur : 088 ms QT Int : 320 ms P-R-T Axes : 029 -22 054 degrees QTc Int : 446 ms Sinus tachycardia. Minimal voltage criteria for LVH, may be normal variant Cannot rule out Anterior infarct , age undetermined Abnormal ECG When compared with ECG of 30-OCT-2018 15:31, QRS duration has increased Minimal criteria for Anterior infarct are now present T wave inversion no longer evident in Inferior leads Nonspecific T wave abnormality, improved in Anterolateral leads Unconfirmed Result
[2019-02-14 10:48] LABS: BASO# 0.02 X1000 (0.0-0.2); BASO% 0.3 % (0.0-0.8); EOS# 0.04 X1000 (0.0-0.7); EOS% 0.5 % (0.0-10.0); HEMATOCRIT 40.7 % (37.0-47.0); HEMOGLOBIN 14.1 g/dL (12.0-16.0); LYMPH% 22.5 % (20.5-51.1); MCH 30.7 PG (27-31); MCHC 34.6 g/dL (33-37); MCV 88.7 FL (81-99); MONO# 0.42 X1000 (0.11-0.59); MONO% 5.6 % (1.7-9.3); MPV 9.7 FL (7.4-10.4); NEUT# 5.36 X1000 (1.4-6.5); NEUT% 71.1 % (42.2-75.2); PLT 258 X1000 (130-400); RBC 4.59 XMIL (4.2-5.4); RDW 12.9 % (11.5-14.5); WBC 7.54 X1000 (4.8-10.8)
[2019-02-14 11:23] LABS: AGAP 15; ALB/GLOB RATIO 1.6; ALBUMIN 4.5 g/dL (3.5-5.0); ALKALINE PHOSPHATASE 111 U/L (32-104); BUN 8 mg/dL (8-22); CALCIUM 9.7 mg/dL (8.8-10.2); CHLORIDE 102 mmol/L (98-107); COSMO 284; CREATININE 0.9 mg/dL (0.5-0.9); ESTIMATED GFR > 60; GLUCOSE 218 mg/dL (70-104); GOT 27 U/L (10-30); GPT 30 U/L (10-36); MAGNESIUM 1.8 mg/dL (1.5-2.7); POTASSIUM 4.5 mmol/L (3.5-5.1); SODIUM 140 mmol/L (136-145); TCO2 23 mmol/L (25-35); TOTAL BILIRUBIN 0.54 mg/dL (0.20-1.00); TOTAL PROTEIN 7.4 g/dL (6.3-8.3)
[2019-02-14 11:25] LABS: UR AMPHETAMINES QUAL NONE DETECTED (NONE DETECT); UR BARBITUATES QUAL NONE DETECTED (NONE DETECT); UR BENZODIAZEPIN QUAL NONE DETECTED (NONE DETECT); UR CANNABINOIDS QUAL NONE DETECTED (NONE DETECT); UR COCAINE QUAL NONE DETECTED (NONE DETECT); UR METHADONE QUAL NONE DETECTED (NONE DETECT); UR OPIATES QUAL NONE DETECTED (NONE DETECT); UR OXYCODONE QUAL NONE DETECTED (NONE DETECT); UR PCP QUAL NONE DETECTED (NONE DETECT)
--- NOTE | 2019-02-14 12:10 | Diag Imaging Result Doc PS360 ---
EXAM: CT HEAD W/O CONTRAST 02/14/2019 HISTORY: seizure TECHNIQUE: This exam was performed using automated exposure control, adjustment of mA or kV according to patient size, and/or use of iterative reconstruction technique. COMMENT: There is generalized cerebral atrophy. This has not changed since 04/26/2018. There is no evidence of bleed mass effect or abnormal extra-axial fluid collection. The visualized paranasal sinuses are clear. The calvarium is intact. IMPRESSION: Mild cerebral atrophy. No evidence of acute disease. Electronically signed by Pablo Barnes 02/14/2019 12:08 PM
--- NOTE | 2019-02-14 13:40 | PROVIDER DOCUMENTATION ---
This chart was entered by Maritza Mims Scribe, acting as scribe for Bam Holder MD. HPI-Neurological Disorder - General Chief Complaint: Seizure Stated Complaint: seizure Time Seen by Provider: 02/14/19 10:36 Source: patient, family () Allergies/Adverse Reactions: Patient Allergies Allergy/AdvReac Type Severity Reaction Status Date / Time ciprofloxacin [From Cipro] Allergy Severe ANAPHYLAXIS Verified 04/26/18 19:50 ciprofloxacin HCl * Allergy Severe ANAPHYLAXIS Verified 04/26/18 19:50 [From Cipro] Sulfa (Sulfonamide Allergy Severe ANAPHYLAXIS Verified 04/26/18 19:50 Antibiotics) [Sulfa(Sulfonamide Antibiotics)] Home Medications: Home Medication List Medication Instructions Recorded Confirmed Last Taken Type Levothyroxine [Synthroid] 50 microgm PO DAILY 09/09/12 04/26/18 01/03/18 08:00 History PRAVAstatin [Pravachol] 40 mg PO QHS 09/09/12 04/26/18 01/03/18 08:00 History Aspirin 81 mg PO QAM 05/31/15 04/26/18 01/03/18 08:00 History Montelukast Sodium [Singulair] 10 mg PO DAILY 05/31/15 04/26/18 01/03/18 08:00 History Omeprazole 20 mg PO DAILY #20 tablet. 03/13/17 04/26/18 01/03/18 08:00 Rx Calcium Citrate/Vitamin D3 1 each PO BID 03/30/17 04/26/18 01/03/18 08:00 History [Calcium Citrate - Vit D3 Tab] Potassium Chloride [Klor-Con M20] 20 meq PO BID 03/30/17 04/26/18 01/03/18 08:00 History Bupropion HCl [Wellbutrin Xl] 300 mg PO DAILY 05/11/17 04/26/18 01/03/18 08:00 History Clonazepam 1 mg PO TID 05/11/17 04/26/18 01/03/18 08:00 History Vortioxetine Hydrobromide 20 mg PO QHS 05/11/17 04/26/18 01/03/18 08:00 History [Trintellix] Furosemide [Lasix] 20 mg PO DAILY 01/03/18 04/26/18 01/03/18 08:00 History Insulin Degludec [Tresiba 70 unit SQ DAILY 01/03/18 04/26/18 01/02/18 21:00 History Flextouch U-200] Losartan Potassium [Cozaar] 100 mg PO DAILY 01/03/18 04/26/18 01/02/18 21:00 History Amitriptyline HCl 200 mg PO QHS 03/04/18 04/26/18 Unknown History Bupropion X.l. [Wellbutrin Xl] 150 mg PO DAILY 03/04/18 04/26/18 Unknown History Cholecalciferol (Vitamin D3) 1 cap PO BID 03/04/18 04/26/18 Unknown History [Vitamin D3] Cinnamon Bark [Cinnamon] 1,000 mg PO BID 03/04/18 04/26/18 Unknown History Estradiol 1 mg PO DAILY 03/04/18 04/26/18 Unknown History Linaclotide [Linzess] 290 mcg PO DAILY 03/04/18 04/26/18 Unknown History Topiramate [Topamax] 300 mg PO QHS 03/04/18 04/26/18 Unknown History Insulin Aspart [Novolog Flexpen] 10 unit SQ DIRECTED 04/26/18 04/26/18 Unknown History Hydrocodone/APAP 7.5 mg/325 mg 1 ea PO Q6H PRN PRN #12 tab 10/30/18 Unknown Rx [Burket-7.5] Ondansetron HCl [Zofran] 4 mg PO Q4H PRN PRN #20 tab 10/30/18 Unknown Rx Naproxen 500 mg PO BID PRN #14 tab 02/03/19 Unknown Rx - History of Present Illness-Neuro Nature of Presenting Problem: Patient is a 48 year old female who presents to the ED via EMS with seizure like activity that started prior to arrival. Patient's reports patient has been having shaking spells for 3 years intermittently but patient disagrees. Patient has not been evaluated for seizures. reports patient's shaking spell lasted 15 minutes and she had an episode of urinary incontinence. History of migraines. Does not report headache. Denies chest pain, shortness of breath, nausea, vomiting and diarrhea. Severity: reports: mild Onset/Duration: reports: this morning Timing: reports: gone now Context: reports: seizure activity Associated Symptoms: reports: denies symptoms Similar Symptoms Previously?: Yes Recently seen or treated by another doctor?: No - Seizure First time to have a seizure?: No Witnessed seizure?: Yes How many seizure episodes?: 1 Duration of episode? (mins): 15 Episode Frequency: occasional episodes Character of Seizure: reports: generalized shaking all over, incontinent of urine Review of Systems - Adult - REVIEW OF SYSTEMS - ADULT Constitutional: reports: no symptoms reported. denies: chills, fever, fatique Eyes: reports: no symptoms reported Ears, Nose, Mouth & Throat: reports: no symptoms reported. denies: ear pain, nose pain, throat pain Cardiovascular: reports: no symptoms reported. denies: chest pain, irregular heart rate, palpitations Respiratory: reports: no symptoms reported. denies: cough, shortness of breath, wheezing Gastrointestinal: reports: no symptoms reported. denies: diarrhea, nausea, vomiting Genitourinary: reports: see HPI, incontinence. denies: dysuria, flank pain, h ematuria Musculoskeletal: reports: no symptoms reported Integumentary: reports: no symptoms reported Neurological: reports: see HPI, seizure. denies: dizziness/vertigo, headache/migraines, numbness, syncope Psychiatric: reports: no symptoms reported Endocrine: reports: no symptoms reported Hematologic/Lymphatic: reports: no symptoms reported Allergic/Immunologic: reports: no symptoms reported All Other Systems: Reviewed and Negative Past History - Adult - PAST MEDICAL HISTORY-ADULT Review of Records: reports: Nursing Assessment Review, Medications Reviewed, Social history reviewed & non-contributory. Major Childhood Illnesses: reports: denies history Cardiovascular: reports: HTN, hyperlipidemia Respiratory: reports: COPD Gastrointestinal: reports: GERD Obstetrical/Gynecological: reports: denies history Genitourinary: reports: denies history Musculoskeletal: reports: denies history Neurological: reports: headaches/migraines Psychiatric: reports: anxiety Endocrine/Immune: reports: Diabetes, thyroid disorder (hypothyroid) Other Conditions: reports: denies history - PRIOR SURGERIES/PROCEDURES Surgical/Procedure History: reports: reviewed, not pertinent, appendectomy, cholecystectomy, hysterectomy - IMMUNIZATION STATUS Childhood Immunizations: See Nurse Assessment Flu Vaccine: See Nurse Assessment - FAMILY HISTORY Family History: reviewed, not pertinent - SOCIAL HISTORY Smoking: cigarettes (former) Substance Use: denies Physical Exam- Neurological - Physical Exam-Neuro Initial Vital Signs Reviewed: Yes General Appearance: alert, no apparent distress. negative: lethargic, slow to respond Eye Exam: bilateral eye: normal inspection, PERRL, EOMI HENMT: moist mucous membranes, normal ENT inspection. negative: angioedema, hearing deficit Head Injury: no evidence of injury. negative: active bleeding, contusions, ecchymosis Respiratory: chest non-tender, lungs clear, normal breath sounds. negative: crackles, rhonchi, stridor Cardiovascular: normal peripheral pulses, regular rate, rhythm. negative: tachycardia, systolic murmur Abdominal Exam: normal bowel sounds, non tender, soft. negative: guarding, rebound Extremity: non-tender, normal inspection. 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 negative: facial asymmetry, facial droop Neurologic: grossly normal, other (wireline field operator 2-12 intact). negative: aphasia, facial droop Integumentary: normal color, normal turgor, warm/dry. negative: cyanosis, ecchymosis, erythema, jaundice Psych/Mental Status: normal mood/affect, oriented x 3. negative: paranoid, tearful - Glascow Coma Scale Best Eye Response: (4) open spontaneously Best Verbal Response: (5) oriented Best Motor Response: (6) obeys commands Total Glascow Score: 15 Progress - PLAN OF CARE/RESULTS Progress/Plan/Lab Results: Vital Signs - 8 hr 02/14/19 10:27 Temperature 98.5 F Pulse Rate 120 H Respiratory Rate 20 Blood Pressure 131/95 O2 Sat by Pulse Oximetry 97 Laboratory Results - last 24 hr 02/14/19 02/14/19 02/14/19 10:36 10:36 10:36 WBC 7.54 RBC 4.59 Hgb 14.1 Hct 40.7 MCV 88.7 MCH 30.7 MCHC 34.6 RDW Std Deviation 12.9 Plt Count 258 MPV 9.7 Immature Gran % (Auto) 0.0 Neut % (Auto) 71.1 Lymph % (Auto) 22.5 [place] % (Auto) 5.6 Eos % (Auto) 0.5 Baso % (Auto) 0.3 Immature Gran # (Auto) 0.00 Neut # (Auto) 5.36 Lymph # (Auto) 1.70 [place] # (Auto) 0.42 Eos # (Auto) 0.04 Baso # (Auto) 0.02 Sodium 140 Potassium 4.5 Chloride 102 Carbon Dioxide 23 L Anion Gap 15 BUN 8 Creatinine 0.9 Estimated GFR/1.73 m2 > 60 BUN/Creatinine Ratio 9 Glucose 218 H POC Glucose Calculated Osmolality 284 Calcium 9.7 Magnesium 1.8 Total Bilirubin 0.54 AST 27 ALT 30 Alkaline Phosphatase 111 H Total Protein 7.4 Albumin 4.5 Globulin 2.9 Albumin/Globulin Ratio 1.6 Urine Opiates Screen Ur Oxycodone Screen Ur Methadone, Qual Ur Barbiturates Screen Ur Phencyclidine Scrn Ur Amphetamines Screen U Benzodiazepines Scrn Urine Cocaine Screen U Cannabinoids Screen Plasma/Serum Ethyl Alc 02/14/19 02/14/19 10:53 11:00 WBC RBC Hgb Hct MCV MCH MCHC RDW Std Deviation Plt Count MPV Immature Gran % (Auto) Neut % (Auto) Lymph % (Auto) [place] % (Auto) Eos % (Auto) Baso % (Auto) Immature Gran # (Auto) Neut # (Auto) Lymph # (Auto) [place] # (Auto) Eos # (Auto) Baso # (Auto) Sodium Potassium Chloride Carbon Dioxide Anion Gap BUN Creatinine Estimated GFR/1.73 m2 BUN/Creatinine Ratio Glucose POC Glucose 213 H Calculated Osmolality Calcium Magnesium Total Bilirubin AST ALT Alkaline Phosphatase Total Protein Albumin Globulin Albumin/Globulin Ratio Urine Opiates Screen NONE DETECTED Ur Oxycodone Screen NONE DETECTED Ur Methadone, Qual NONE DETECTED Ur Barbiturates Screen NONE DETECTED Ur Phencyclidine Scrn NONE DETECTED Ur Amphetamines Screen NONE DETECTED U Benzodiazepines Scrn NONE DETECTED Urine Cocaine Screen NONE DETECTED U Cannabinoids Screen NONE DETECTED Plasma/Serum Ethyl Alc Orders Category Date Time Status Finger Stick Blood Sugar (ED) DIRECTED Care 02/14/19 10:32 Active Notify MD if DIRECTED Care 02/14/19 10:32 Active Saline Loc NOW Care 02/14/19 10:[address] HEAD W/O CONTRAST [CT] Stat Exams 02/14/19 10:32 Completed ALCOHOL BLOOD Stat Lab 02/14/19 10:36 Completed CBC WITH ELECTRONIC DIFF [HEME] Stat Lab 02/14/19 10:36 Completed COMPREHENSIVE METABOLIC PANEL [CHEM] Stat Lab 02/14/19 10:36 Completed MAGNESIUM [CHEM] Stat Lab 02/14/19 10:36 Completed URINE DRUG SCREEN Stat Lab 02/14/19 11:00 Completed Seizure, New Onset Stat Oth 02/14/19 10:31 Ordered EKG [EKG] Stat Ther 02/14/19 10:31 Draft Result Diagrams: 02/14/19 10:36 02/14/19 10:36 - EKG 1 Time of EKG reading by physician:: 10:30 EKG Read and Signed by:: Bam Holder EKG Interpretation (*Must complete 3 of following elements*): Abnormal Rate: 117 Rhythm: sinus tachycardia QRS: LVH (minimal voltage criteria) ID Interval: normal Comments: cannot rule out anterior infarct, age undetermined - CT/MRI 1 CT Study: Head Impression: See EMR Report ( EXAM: CT HEAD W/O CONTRAST 02/14/2019 HISTORY: seizure TECHNIQUE: This exam was performed using automated exposure control, adjustment of mA or kV according to patient size, and/or use of iterative reconstruction technique. COMMENT: There is generalized cerebral atrophy. This has not changed since 04/26/2018. There is no evidence of bleed mass effect or abnormal extra-axial fluid collection. The visualized paranasal sinuses are clear. The calvarium is intact. IMPRESSION: Mild cerebral atrophy. No evidence of acute disease. Electronically signed by Pablo Barnes 02/14/2019 12:08 PM 02/14/19 1208 Interpreting Physician: Pablo Barnes MD Dictated Date/Time: 02/14/19 1207 cc: Bam Holder MD; Nate Samuel MD) - CONSULTS/PCP/HOSPITALIST Notification #1 *Consult/PCP/Hospitalist*: Dr. Samuel Time Discussed: 13:25 Reason/Comments: Dr. Holder consulted with Dr. Samuel about patient. Departure - Departure Date of Disposition Decision: 02/14/19 Time of Disposition Decision: 13:40 DIAGNOSIS: New onset seizure Disposition: ADMITTED INPATIENT 09 Certified Medical Emergency: Emergent Condition: Good Referrals and Follow-Ups: Nate Samuel MD [Primary Care Provider] - - Critical Care Note This patient required my direct & personal management of CC.: No Attestation - Physician/ ELSIE Attestation The physician spent face to face time with patient:: Yes Advanced Practice Provider documentation review:: Supervising physician onsite and consulted in the evaluation and care of this patient. The physician did have a face to face encounter with the patient. This chart was documented by the indicated scribe, (Maritza Mims, Azael) and accurately reflects the services I performed and decisions made by me, Bam Holder MD, as attested by the provider's signature.
[2019-02-14] MEDS ORDERED: NS 1,000 ML IV ONE (16:07)
[2019-02-14] MEDS ORDERED: ZOFRAN PO PRN (17:37)
--- NOTE | 2019-02-14 18:20 | HISTORY AND PHYSICAL ---
CHIEF COMPLAINT: Seizure. HISTORY OF PRESENT ILLNESS: Ms. Noel is a 48-year-old white female patient who was in her usual state of health. [facility] . According to , the patient started having a jerking movement all over. The patient was not aware of her surroundings. Lasted for 3 minutes. Patient did have urinary incontinence. EMS was called. Patient was brought to emergency room, evaluated by ER physician, admitted for further care. On detailed questioning, patient claims she had her lorazepam filled on 02/07/2019, and somehow she lost that medicine or she threw it away accidentally, and she is not taking that medicine for the last many days. Patient was having some uneasiness and nervousness. Patient is on lorazepam for quite a long time. She is being followed by a psychiatrist for her anxiety, her depression, and bipolar disorder. The patient claims to be under stress, at times depressed and anxious. No high grade fever or chills. No typical chest pain, palpitation, orthopnea, or PND. The patient does have multiple falls and at times blacking out spells. No dysuria or hematuria. No diarrhea, blood, or mucus in the stool. The patient does have long-standing diabetes complicated by neuropathy and gastroparesis. The patient is complaining of pain in the lower back. She does have multiple fractures, mild cough with scanty sputum production. No vaginal discharge, spotting, bleeding. At times constipation. No major weight loss or weight gain. No further history available at this time. ALLERGIES: Cipro and sulfa. PAST MEDICAL HISTORY: 1. Longstanding diabetes mellitus, complicated by neuropathy. 2. Hypertension. 3. Hyperlipidemia. 4. Gastroparesis. 5. Bipolar disorder. 6. Anxiety and depression, being followed by psychiatrist. 7. Multiple falls and fractures. 8. Sleep apnea. 9. Migraine headache. 10. Celiac artery disease. 11. The patient had breast reduction done many years ago. FAMILY HISTORY: Mother with osteoporosis, hip fracture, diabetes mellitus, COPD. Father with diabetes, osteoarthritis, hyperlipidemia, and hypertension. Strong family history of diabetes, hypertension, hyperlipidemia. PERSONAL HISTORY: ; lives with the . Used to smoke; not smoking lately. Denied alcohol or substance abuse. Patient is on disability. HOME MEDICATIONS: Include: 1. [place]. 2. Naproxen. 3. Phenergan. 4. Amitriptyline. 5. Aspirin. 6. Wellbutrin. 7. Vitamin D. 8. Estradiol. 9. Lasix. 10. Tresiba. 11. Levothyroxine. 12. Linzess. 13. Victoza. 14. Ativan. 15. Cozaar. 16. Singulair. 17. Zyprexa. 18. Prilosec. 19. Zofran. 20. Potassium. 21. Pravachol. 22. Trintellix. PHYSICAL EXAMINATION: GENERAL: Young white female patient in no acute distress. When I evaluated the patient, she fully alert, awake, oriented x3. VITAL SIGNS: Blood pressure 134/88, pulse 96, respirations 18, temperature 98.1 degrees. SKIN: Normal turgor. No rash or petechiae. HEENT: Head atraumatic, normocephalic. [place] conjunctivae. Anicteric sclerae. Extraocular muscle movement normal. Fundus cannot be penetrated. Good oral hygiene. No tonsillopharyngeal congestion or exudate. Ears and nose benign. NECK: Supple. No JVD, thyromegaly, or lymphadenopathy. CHEST: Bilateral good air entry present. No rales. CARDIOVASCULAR: S1 and S2 heard. No gallop or thrill. ABDOMEN: Soft, globular. Bowel sounds present. No organomegaly or mass. EXTREMITIES: No cyanosis, clubbing. No acute DVT. 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 LABORATORY DATA: CBC was fairly benign. Electrolytes: Blood sugar 218, alkaline phosphatase 111. Urine drug screen was negative. CT scan of the brain: Mild cerebral atrophy. No evidence of acute disease. EKG results reviewed. PROBLEMS: Include: 1. New onset seizure, most likely withdrawal from her Ativan. 2. Diabetes mellitus. 3. Hypertension. 4. Mood disorder. 5. Hyperlipidemia. 6. History of migraine headache. 7. Sleep apnea. 8. Morbid obesity. PLAN: 1. Admit patient to telemetry. 2. Seizure precaution. 3. Close observation. 4. Monitor Accu-Chek. 5. Fall precaution. Overall plan discussed with the patient and family. They are in agreement. Discussed with the patient about withdrawal seizure from diazepam, and be careful in future. If clinical condition permits, will plan to discharge patient home tomorrow. cc: Nate Samuel MD
[2019-02-14] MEDS ORDERED: TRINTELLIX PO SCH (21:00)
[2019-02-14] MEDS ORDERED: ZYPREXA PO SCH (21:00)
[2019-02-14] MEDS ORDERED: ELAVIL PO SCH (21:00)
[2019-02-14] MEDS ORDERED: PRAVACHOL PO SCH (21:00)
[2019-02-14] MEDS: VITAMIN D PO SCH (22:04)
[2019-02-14] MEDS: ATIVAN PO SCH (22:05)
[2019-02-14] MEDS: KLOR-CON PO SCH (22:05)
[2019-02-14] MEDS: HUMALOG SUBQ SCH (22:06)
[2019-02-14] MEDS: PATIENT'S OWN MED PO SCH (22:07)
[2019-02-14] MEDS: TYLENOL PO PRN (22:30)
[2019-02-14] MEDS ORDERED: SODIUM CHLORIDE 0.9% INJ PRN (22:45)
[2019-02-14] MEDS: PHENERGAN IV PRN (23:08)
[2019-02-15] MEDS: PRILOSEC PO SCH ×2 (02:17→06:37)
[2019-02-15] MEDS: HUMALOG SUBQ SCH ×3 (06:24→17:48)
[2019-02-15] MEDS ORDERED: SYNTHROID PO SCH (07:00)
[2019-02-15] MEDS ORDERED: PRILOSEC PO SCH (07:00)
--- NOTE | 2019-02-15 07:08 | PROGRESS NOTE ---
DATE: 02/15/2019 SUBJECTIVE: Ms. Noel is doing fair. No seizure-type episode. I resumed her Ativan. At times, dull headache and nausea. The patient does have gastroparesis. No fever or chills. No typical chest pain. Blood sugar is staying high. Denied any dysuria or hematuria. OBJECTIVE: Vital signs: Noted. Neck: Supple. No JVD. Lungs: Bibasilar crepitations. Heart: S1 and S2 heard. Abdomen: Soft, globular. Bowel sounds present. Extremities: No cyanosis, clubbing. No acute DVT. 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 Able to move all 4 limbs. LABORATORY DATA: The patient urine drug screen was negative. Accu-Chek results reviewed. ASSESSMENT AND PLAN: 1. The patient admitted with seizure, most likely due to withdrawal from benzodiazepines. 2. Diabetes mellitus complicated by gastroparesis. 3. Peripheral neuropathy. The patient does have celiac artery syndrome. 4. Mood disorder and depression. 5. Migraine headache. I resume her Ativan. Continue rest of the treatment. Ambulate the patient today. After Dr. Jacobson evaluate the patient plan is to discharge patient home. Fall precaution. Follow up with me in the office 1 week. In case of more distress, call us back or go to emergency room. Encouraged patient to lose weight and smoking cessation. cc: Nate Samuel MD
[2019-02-15] MEDS ORDERED: TRESIBA FLEXTOUCH U-200 SUBQ SCH ×3 (09:00→21:00)
[2019-02-15] MEDS ORDERED: SINGULAIR PO SCH (09:00)
[2019-02-15] MEDS ORDERED: ESTRACE PO SCH (09:00)
[2019-02-15] MEDS ORDERED: COZAAR PO SCH (09:00)
[2019-02-15] MEDS ORDERED: ASPIRIN PO SCH (09:00)
[2019-02-15] MEDS ORDERED: WELLBUTRIN XL PO SCH (09:00)
[2019-02-15] MEDS ORDERED: LASIX PO SCH (09:00)
[2019-02-15] MEDS ORDERED: LINZESS PO SCH (09:00)
[2019-02-15] MEDS ORDERED: VICTOZA SUBQ SCH (09:00)
[2019-02-15] MEDS: PATIENT'S OWN MED PO SCH (10:22)
[2019-02-15] MEDS: KLOR-CON PO SCH (10:34)
[2019-02-15] MEDS: ATIVAN PO SCH ×3 (10:35→16:01)
[2019-02-15] MEDS: VITAMIN D PO SCH (10:35)
[2019-02-15] MEDS: TYLENOL PO PRN ×2 (10:47→15:47)
--- NOTE | 2019-02-15 11:03 | CONSULTATION ---
DATE OF CONSULTATION: 02/15/2019 HISTORY: Ms. Noel had apparent generalized seizure yesterday. She remembers being in court, sitting through court, feeling nervous and jittery. She next realized she was "waking up" with policemen and court personnel checking on her. She had wet her pants. There was no evidence of tongue-biting. She felt sore all over with worse than usual headache. By report, witnesses described generalized clonic activity. This resolved spontaneously after several minutes. She reports no prior seizure. She told me that her had thought she might have had some seizures at times in the past but she cannot tell me how many, when or under what circumstances. This time, there is clearly benzodiazepine withdrawal. She has been taking lorazepam 4 mg daily chronically. She was off lorazepam for several days prior to this recent seizure. Her urine drug screen was negative for benzodiazepine and for all other on this admission. She has been taking bupropion chronically. Other medications include amitriptyline, Trintellix, several others. She has history of chronic migraine. She was managed with Botox injections for a short time until insurance company denied coverage. She has appointment to come to my office to consider newly available calcitonin gene related peptide blockers. She has taken most of the oral migraine prophylaxis medicines without satisfactory results. She has had limited hydrocodone/acetaminophen prescriptions and takes those as needed for abortive management of headache. Workup here includes noncontrast CT reported unremarkable. Lab work has been unremarkable. She has been afebrile. Heart rate was initially 120s and later stable in the 90s. Systolic blood pressures have ranged 110s to 130s. PHYSICAL EXAMINATION: On exam, she is awake, alert, attentive, oriented and appropriate. Speech is not dysarthric. Language function is intact. Memory is good. Head and neck are unremarkable. Visual payton are full tested grossly by confrontational finger counting. Extraocular movements are full. Facial motility is symmetric. Tongue is midline without evidence of recent injury. Gag is intact. Shoulder shrug is equal. Strength is normal in the arms. She did well on finger- to-nose testing. I did not test her gait. She is tremulous, but there is no classifiable tremor right now. IMPRESSION: 1. Benzodiazepine withdrawal with typical agitation and eventual generalized seizure. I encouraged her to be careful with her medicines and to try not to run out of benzodiazepines abruptly. 2. Chronic daily headache, chronic migraine, past episodic migraine. We discussed possible contribution from analgesic rebound/medication overuse to her persistent frequent headache syndrome. She has outpatient appointment to consider calcitonin gene related peptide inhibitors. 3. Depression. We briefly discussed potential for bupropion to "lower seizure threshold" and she will be careful with that. Recent episode seems clearly due to benzodiazepine withdrawal and I don't think she has to stop bupropion now. 4. She has risk factors for cerebrovascular ischemic problems including hypertension and diabetes mellitus. I encouraged her to be aggressive with management of those problems. Thanks for asking Neurology to see Ms. Noel. cc: MD Nate Layne III, MD MTDD
[2019-02-15 11:35] LABS: HEMOGLOBIN A1C 5.9 % (4.8-6.0)
[2019-02-15 11:44] LABS: AGAP 8; ALB/GLOB RATIO 1.4; ALBUMIN 3.7 g/dL (3.5-5.0); ALKALINE PHOSPHATASE 81 U/L (32-104); BUN 7 mg/dL (8-22); CALCIUM 8.7 mg/dL (8.8-10.2); CHLORIDE 104 mmol/L (98-107); COSMO 279; CREATININE 0.7 mg/dL (0.5-0.9); ESTIMATED GFR > 60; GLUCOSE 192 mg/dL (70-104); GOT 25 U/L (10-30); GPT 26 U/L (10-36); MAGNESIUM 1.9 mg/dL (1.5-2.7); POTASSIUM 4.2 mmol/L (3.5-5.1); SODIUM 138 mmol/L (136-145); TCO2 26 mmol/L (25-35); TOTAL BILIRUBIN 0.37 mg/dL (0.20-1.00); TOTAL PROTEIN 6.3 g/dL (6.3-8.3)
[2019-02-15] MEDS: PHENERGAN IV PRN (12:23)
[2019-02-15 12:35] LABS: TSH 0.88 uIUmL (0.27-4.20)
--- NOTE | 2019-02-15 14:43 | EEG REPORT ---
DATE: 02/14/2019 EEG #: [id number]. COMMENT: This is a digitally recorded EEG on a patient with recent seizure, likely benzodiazepine withdrawal, chronic migraine. FINDINGS: During waking, medium and higher amplitude 10 hertz posterior rhythm is present symmetrically and reacts normally to eye opening. Background contains polymorphic and rhythmic theta frequencies over the frontal and central regions symmetrically. Drowsing occurred briefly with appearance of more generalized slowing and attenuation of the posterior rhythm. Stage II sleep was recorded very briefly with symmetric features. Photic stimulation did not significantly alter the record. Hyperventilation was not done. No definite epileptiform discharge was identified. INTERPRETATION: Normal EEG. CORRELATION: The absence of epileptiform discharges on a single EEG does not exclude a clinical diagnosis of seizures. There is nothing on this record to suggest the presence of a longer-term seizure disorder. cc: MD Nate Layne III, MD
[2019-02-15 16:09] VITALS: BP 124/79
--- NOTE | 2019-02-16 01:41 | DISCHARGE SUMMARY ---
ADMISSION DATE: 02/14/2019 DISCHARGE DATE: 02/15/2019 HISTORY: Mr. Bernadette Noel is a 48-year-old, white female patient, admitted with new onset seizure. The patient is doing better. Complaining of some headache, some drowsiness, at times confusion. The patient had Phenergan. She also takes Ativan, multiple antidepressants/antipsychotic medications. When I talked to patient, she was alert, awake, oriented. No seizure-type episode. We resumed her Ativan. No fever or chills. No neck stiffness. No dysuria or hematuria. No diarrhea, blood, or mucus in the stool. PHYSICAL EXAM: Vital Signs: Noted which were stable. Neck: Supple. No JVD. Lungs: Clear. Heart: Regular. Abdomen: Soft, globular. Bowel sounds present. 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 Able to move all 4 limbs. DIAGNOSTICS: Her EEG was normal. LABORATORY DATA: Noted. Hemoglobin A1c was 5.9. DISCHARGE INSTRUCTIONS: Overall, patient is doing better. We will continue current treatment. I had lengthy discussion with the patient not to stop benzodiazepines suddenly. Discussed with her psychiatrist if possible to cut back her antidepressant and antipsychotic medication. Take medicine regularly. Not to drive or operate machinery. Follow up with neurologist as scheduled. Follow up with me in a week. Watch for hypoglycemia. In case of more distress, call us back or go to emergency room. cc: Nate Samuel MD
== END 2019-02-15 18:14 | disposition home or self-care (01) | DRG 897 ==
LOC: SUPCPDRO → ED 10:23 → 3N 14:16
PROVIDERS: ADMIT Internal Medicine; ATTEND Internal Medicine
CPT/HCPCS: 70450; 80053; 80101; 80301; 80307; 80320; 80324; 80345; 80346; 80353; 80358; 80361; 80365; 82055; 82607; 82746; 82948; 83036; 83735; 83992; 84443; 85025; 93005; 95816; 99285; A9270; G0431; G0434; G0479; G0480; G6040; J1815; J2550; XXXXX

== ENCOUNTER 2019-08-15 14:16 | Inpatient (IN) ==
[2019-08-15] MEDS ORDERED: NS 1,000 ML IV ONE (15:46)
--- NOTE | 2019-08-15 15:55 | EKG Report ---
Test Performed on : 08/15/2019 2:57:12 PM Test Reason : cp Blood Pressure : / mmHG Vent. Rate : 087 BPM Atrial Rate : 087 BPM P-R Int : 160 ms QRS Dur : 088 ms QT Int : 368 ms P-R-T Axes : 031 -13 042 degrees QTc Int : 442 ms Normal sinus rhythm. Cannot rule out Anterior infarct , age undetermined Abnormal ECG When compared with ECG of 01-JUL-2019 16:23, No significant change was found Unconfirmed Result
--- NOTE | 2019-08-15 16:08 | Diag Imaging Result Doc PS360 ---
EXAM: CHEST-1 VIEW HISTORY: cp TECHNIQUE: Chest single view COMPARISON: 04/18/2019 FINDINGS: The lungs are well expanded. The heart is not enlarged. The vessels are not distended. There are no infiltrates. No effusion identified. Prior surgery in the lower neck. IMPRESSION: Negative exam. Electronically signed by Doug Charlton 08/15/2019 4:05 PM
[2019-08-15 16:52] LABS: BASO# 0.01 X1000 (0.0-0.2); BASO% 0.1 % (0.0-0.8); EOS# 0.03 X1000 (0.0-0.7); EOS% 0.3 % (0.0-10.0); HEMATOCRIT 36.7 % (37.0-47.0); HEMOGLOBIN 12.9 g/dL (12.0-16.0); IMM GRAN# 0.04 X1000 (0.0-0.04); IMM GRAN% 0.4 % (0.0-0.5); LYMPH# 1.16 X1000 (1.2-3.4); LYMPH% 10.2 % (20.5-51.1); MCH 30.1 PG (27-31); MCHC 35.1 g/dL (33-37); MCV 85.5 FL (81-99); MONO# 0.72 X1000 (0.11-0.59); MONO% 6.3 % (1.7-9.3); MPV 9.7 FL (7.4-10.4); NEUT# 9.38 X1000 (1.4-6.5); NEUT% 82.7 % (42.2-75.2); PLT 252 X1000 (130-400); RBC 4.29 XMIL (4.2-5.4); RDW 13.3 % (11.5-14.5); WBC 11.34 X1000 (4.8-10.8)
[2019-08-15 17:01] LABS: INR 1.06
[2019-08-15 17:13] LABS: SODIUM 122 mmol/L (136-145)
[2019-08-15 17:14] LABS: AGAP 15; ALB/GLOB RATIO 1.4; ALBUMIN 3.8 g/dL (3.5-5.0); ALKALINE PHOSPHATASE 69 U/L (32-104); BUN 8 mg/dL (8-22); CALCIUM 8.2 mg/dL (8.8-10.2); CHLORIDE 84 mmol/L (98-107); COSMO 251; CREATININE 0.8 mg/dL (0.5-0.9); ESTIMATED GFR > 60; GLUCOSE 220 mg/dL (70-104); GOT 12 U/L (10-30); GPT 12 U/L (10-36); POTASSIUM 3.6 mmol/L (3.5-5.1); TCO2 23 mmol/L (25-35); TOTAL BILIRUBIN 0.29 mg/dL (0.20-1.00); TOTAL PROTEIN 6.6 g/dL (6.3-8.3)
[2019-08-15] MEDS ORDERED: HUMALOG SUBQ PRN (18:17)
[2019-08-15] MEDS ORDERED: ROCEPHIN 1 GM in NS 50 ML IV SCH (19:00)
[2019-08-15 19:21] LABS: URINE SOURCE CLEAN CATCH
[2019-08-15 19:35] LABS: BILIRUBIN URINE NEGATIVE (NEGATIVE); BLOOD URINE NEGATIVE (NEGATIVE); COLOR STRAW; GLUCOSE URINE 100 mg/dL (NEGATIVE); KETONE URINE TRACE mg/dL (NEGATIVE); LEUKOCYTES URINE NEGATIVE (NEGATIVE); NITRITE URINE NEGATIVE (NEGATIVE); PROTEIN URINE NEGATIVE (NEGATIVE); SP GRAVITY URINE 1.007; TURBIDITY URINE CLEAR (CLEAR); UROBILINOGEN URINE NORMAL (NORMAL)
[2019-08-15 19:37] LABS: UR EPITHELIAL CELLS <10 /HPF (<10); URINE BACTERIA 2+ /HPF; URINE RBC <10 /HPF (<10); URINE WBC <10 /HPF (<10)
--- NOTE | 2019-08-15 20:29 | HISTORY AND PHYSICAL ---
CHIEF COMPLAINT: Syncopal episode. HISTORY OF PRESENT ILLNESS: Ms. Noel is a 49-year-old, white female patient. Was in her usual state of health today, though patient does have multiple complex medical issues, including history of hypertension, longstanding diabetes, hyperlipidemia, bipolar disorder, frequent falls. The patient was giving blood and according to bystander, the patient passed out. She denied hitting head. Patient claimed she was nauseated. She did have vague abdominal pain. Patient does have dull headache. No neck stiffness or blurred vision. No fever. Patient did have chills. Her blood pressure was low. Patient was brought to emergency room, evaluated by ER physician. In the ER, her chemistry did reveal low sodium. With her history of headache and syncope, we decided to admit patient for further care. Patient denied any diarrhea, blood or mucus in the stool. As I mentioned, patient did have some nausea. She was feeling like she was going to throw up. Patient does have a history of diabetes mellitus, poorly controlled. No typical chest pain or palpitation. No unusual cough, expectoration, or hemoptysis. No dysuria or hematuria. Patient does have vague pain in the lower back. No leg swelling. In the ER, patient did receive some fluid. Her blood pressure was improving. No seizure-type episode. Because of abnormal lab, hypotension, etiology not clear, and syncope, we decided to admit patient for further care. ALLERGIES: Cipro and Sulfa. PAST MEDICAL HISTORY: 1. Longstanding diabetes mellitus, poorly controlled, complicated by neuropathy. 2. Hypertension. 3. Hyperlipidemia. 4. Bipolar disorder. 5. Gastroparesis. 6. Anxiety and depression. 7. History suggestive of sleep apnea. 8. Migraine headache. 9. Celiac disease. 10. The patient had breast reduction done many years ago. 11. History of osteoporosis. 12. Fracture of radial bone. FAMILY HISTORY: Significant for father with stroke, diabetes, hypertension; mother with osteoporosis, hip fracture, diabetes mellitus, COPD. Patient has strong family history of diabetes, hypertension, hyperlipidemia. One sister of end-stage renal disease and complication of diabetes. PERSONAL HISTORY: ; lives with the . Quit smoking a few months ago. Denied alcohol or substance abuse. REVIEW OF SYSTEMS: As per HPI. PHYSICAL EXAMINATION: GENERAL: Middle-aged white female patient, lying in the bed in no acute distress. VITAL SIGNS: On admission, blood pressure 64/40, pulse 79, respirations 16, temperature 97.9 degrees. SKIN: Normal turgor. No rash or petechiae. HEAD: Atraumatic, normocephalic. EYES: [place] conjunctivae. Anicteric sclerae. Extraocular muscle movement normal. Fundus cannot be penetrated. ENT: Good oral hygiene. No tonsillopharyngeal congestion or exudate. Ears and nose benign. NECK: Supple. No JVD, thyromegaly or lymphadenopathy. CHEST: Bilateral good air entry present. No rales. CARDIOVASCULAR: S1 and S2 heard. 1 to 2/6 systolic murmur at the apex. No gallop or thrill. ABDOMEN: Soft. No distention. Bowel sounds present. Mild epigastric tenderness. No guarding or rigidity. EXTREMITIES: No cyanosis, clubbing. No acute DVT. EXERCISER HORSE: Alert, awake, able to move all 4 limbs. MUSCULOSKELETAL: Crepitation in both knee joints. Vague tenderness of lumbosacral spine. CONSIDERATION: Patient admitted with hypotension. Clinically no history suggestive of volume depletion. No evidence of apparent infection. I am going to check urinalysis and do blood culture. We also checked her chest x-ray and it was negative for any pneumonia. Her other problems include: 1. Hyponatremia. 2. Uncontrolled diabetes mellitus. 3. Gastritis and reflux disease. 4. Bipolar disorder. 5. History suggestive of seizure disorder. 6. Obesity. 7. Possibility of vasovagal syncope cannot be ruled out. 8. History of hypothyroidism. PLAN: 1. Intravenous hydration. 2. Telemetry monitoring. 3. Check appropriate labs. 4. Neuro check. 5. Close observation. 6. Oxygen. 7. Fall precaution. 8. Overall plan discussed at length with the patient and she is in agreement. 9. I am going to start patient empirically on antibiotics till I have all the results. cc: Nate Samuel MD
[2019-08-15] MEDS ORDERED: PRAVACHOL PO SCH (21:00)
[2019-08-15] MEDS ORDERED: TRINTELLIX PO SCH (21:00)
[2019-08-15] MEDS: POTASSIUM CHLORIDE 10 MEQ in NS 1,000 ML IV SCH (21:59)
[2019-08-15] MEDS: LOVENOX SUBQ SCH (21:59)
[2019-08-15] MEDS: DEPAKOTE PO SCH (22:00)
[2019-08-15] MEDS: ATIVAN PO SCH (22:00)
[2019-08-15] MEDS: KLOR-CON PO SCH (22:00)
[2019-08-16 06:36] LABS: AGAP 8; ALB/GLOB RATIO 1.3; ALBUMIN 3.1 g/dL (3.5-5.0); ALKALINE PHOSPHATASE 52 U/L (32-104); BUN 5 mg/dL (8-22); CALCIUM 7.7 mg/dL (8.8-10.2); CHLORIDE 95 mmol/L (98-107); CHOLESTEROL 111 mg/dL (0-200); COSMO 256; CREATININE 0.5 mg/dL (0.5-0.9); ESTIMATED GFR > 60; GLUCOSE 95 mg/dL (70-104); GOT 10 U/L (10-30); GPT 8 U/L (10-36); HDL 50 mg/dL (45-65); LDL 38 mg/dL; LIPASE 16 U/L (13-60); MAGNESIUM 1.7 mg/dL (1.5-2.7); PHOSPHORUS 2.5 mg/dL (2.7-4.5); POTASSIUM 3.5 mmol/L (3.5-5.1); SODIUM 129 mmol/L (136-145); TCO2 26 mmol/L (25-35); TOTAL BILIRUBIN 0.22 mg/dL (0.20-1.00); TOTAL PROTEIN 5.4 g/dL (6.3-8.3); TRIGLYCERIDES 114 mg/dL (35-135); VLDL 23 mg/dL
[2019-08-16] MEDS ORDERED: POTASSIUM PHOSPHATE 15 MMOL in NS 250 ML IV ONE (06:38)
[2019-08-16 06:39] LABS: EOS# 0.04 X1000 (0.0-0.7); EOS% 0.7 % (0.0-10.0); HEMATOCRIT 29.9 % (37.0-47.0); HEMOGLOBIN 10.2 g/dL (12.0-16.0); IMM GRAN# 0.02 X1000 (0.0-0.04); IMM GRAN% 0.3 % (0.0-0.5); LYMPH# 2.06 X1000 (1.2-3.4); LYMPH% 35.2 % (20.5-51.1); MCH 29.5 PG (27-31); MCHC 34.1 g/dL (33-37); MCV 86.4 FL (81-99); MONO# 0.35 X1000 (0.11-0.59); MPV 9.5 FL (7.4-10.4); NEUT# 3.38 X1000 (1.4-6.5); NEUT% 57.8 % (42.2-75.2); PLT 226 X1000 (130-400); RBC 3.46 XMIL (4.2-5.4); RDW 13.2 % (11.5-14.5); WBC 5.85 X1000 (4.8-10.8)
[2019-08-16] MEDS ORDERED: KLOR-CON PO ONE (06:44)
[2019-08-16] MEDS: POTASSIUM CHLORIDE 10 MEQ in NS 1,000 ML IV SCH (06:53)
[2019-08-16] MEDS ORDERED: SYNTHROID PO SCH (07:00)
[2019-08-16 07:06] LABS: FREE T4 1.43 ng/dL (0.93-1.70); TSH 0.28 uIUmL (0.27-4.20)
--- NOTE | 2019-08-16 07:06 | PROGRESS NOTE ---
DATE: 08/16/2019 SUBJECTIVE: Ms. Noel is doing fair. The patient admitted with hypotension and syncopal episode yesterday. The patient is still complaining of being dizzy and wobbly when she tries to get up. No chest pain or palpitations. Denied any nausea or vomiting. Her urine did show bacteruria and glycosuria. No unusual cough or expectoration. No typical chest pain or palpitation. OBJECTIVE: Vital signs: As noted. Blood pressure 95/66, pulse 77, respirations 12, and temperature 97.9 degrees. Skin: No rash or petechiae. HEENT: Head atraumatic, normocephalic. [place] conjunctivae. Anicteric sclerae. Extraocular muscle movement normal. Fundus cannot be penetrated. Good oral hygiene. No tonsillopharyngeal congestion or exudate. Ears and nose benign. Neck: Supple. No JVD, thyromegaly or lymphadenopathy Chest: Bilateral good air entry present. No rales or rhonchi. CVS: S1 and S2 heard. Abdomen: Soft, globular. Bowel sounds present. LAUNCH CHECK OUT: Alert and awake able to move all 4 limbs. LABORATORY DATA: Lab data done this morning revealed potassium was low-normal at 3.5. Sodium 129. Lipid panel results reviewed. Amylase and lipase were normal. Cardiac isoenzymes were negative. Ammonia level was minimally elevated. ASSESSMENT AND PLAN: 1. The patient was admitted with hypotension. Blood pressure seems to be improving. Hyponatremia which is getting better. The patient does have hypophosphatemia. I am going to supplement her phosphorous. Her potassium was low-normal. We will supplement potassium. The patient does have bacteriuria. Patient is already on antibiotics. Culture result is pending. 2. Diabetes mellitus. I am going to check serum cortisol level. 3. We are holding her blood pressure medicine. Continue the rest of the treatment, and close observation. cc: Nate Samuel MD
[2019-08-16 07:08] LABS: HEMOGLOBIN A1C 8.7 % (4.8-6.0)
[2019-08-16] MEDS: DEPAKOTE PO SCH ×2 (08:13→14:35)
[2019-08-16] MEDS: ATIVAN PO SCH ×3 (08:14→17:51)
[2019-08-16] MEDS: KLOR-CON PO SCH (08:14)
[2019-08-16] MEDS: LOVENOX SUBQ SCH (08:14)
[2019-08-16] MEDS ORDERED: ESTRACE PO SCH (09:00)
[2019-08-16] MEDS ORDERED: PRILOSEC PO SCH (09:00)
[2019-08-16] MEDS ORDERED: TRESIBA FLEXTOUCH U-200 SUBQ SCH (09:00)
[2019-08-16] MEDS ORDERED: LACTULOSE PO SCH (09:00)
[2019-08-16] MEDS ORDERED: LINZESS PO SCH (09:00)
[2019-08-16] MEDS ORDERED: SINGULAIR PO SCH (09:00)
[2019-08-16] MEDS ORDERED: VICTOZA SUBQ SCH (09:00)
[2019-08-16 16:36] VITALS: BP 106/71
--- NOTE | 2019-08-17 13:36 | DISCHARGE SUMMARY ---
ADMISSION DATE: 08/15/2019 DISCHARGE DATE: 08/16/2019 FINAL DISCHARGE DIAGNOSES: 1. Syncope. 2. Hypotension. 3. Hyponatremia. 4. Diabetes mellitus. 5. Bipolar disorder. 6. Anxiety and depression. 7. History suggestive of sleep apnea. 8. Migraine headache. 9. Metabolic encephalopathy. HISTORY OF PRESENT ILLNESS: Ms. Noel is a 49-year-old, white female patient. Patient was giving blood yesterday. The patient had a syncopal episode. Her blood pressure was very low. The patient was brought to the emergency room, evaluated by ER physician. The patient was given fluid. She was found to have hyponatremia and potassium was low-normal. The patient was admitted for further care. The patient was admitted to step-down unit. She was given fluid. We did neuro check, close observation. Myocardial infarction ruled out by negative cardiac isoenzymes. The patient clinical condition gradually improved. Her blood work did reveal elevated ammonia level. I gave her lactulose. Patient have frequent loose bowel movement. Her overall clinical condition improved. The patient was able to go to bathroom by herself without getting dizzy or lightheaded. Blood pressure improved. Her sodium was getting better. Overall the patient is improving and I decided to discharge her home today. Advised patient to take plenty of liquids orally. Urinalysis did reveal bacteriuria. I gave her IV antibiotics and gave her prescription for oral antibiotics. The monitor blood pressure and Accu-Chek at home. Fall precaution. Her mental status was baseline. Continue follow up with her psychiatrist. In case of more distress, call us back or go to emergency room. Her chest x-ray did not reveal any acute changes. The lab data: Hemoglobin 10.2, hematocrit 29.9, WBC count 5.85, platelet 226,000. PT/INR 1.06. PTT was normal. D-dimer was negative. Sodium improved from 122 to 129. The ammonia level was 68. Urine revealed 2+ bacteria. PLAN: Overall plan discussed at length with the patient and she is in agreement. Follow up with me in 5 to 6 days. Discussed at length with her discharge medicine. Not to take blood pressure medicine. Monitor blood pressure and Accu-Chek at home. cc: Nate Samuel MD
--- NOTE | 2019-08-17 15:38 | PROVIDER DOCUMENTATION ---
This chart was entered by Sheila Miguel Scribe, acting as scribe for Hector Valle MD. HPI-Syncope/Dizziness - General Chief Complaint: Syncope Stated Complaint: PASSED OUT---GIVING BLOOD Time Seen by Provider: 08/15/19 15:31 Source: patient Allergies/Adverse Reactions: Patient Allergies Allergy/AdvReac Type Severity Reaction Status Date / Time ciprofloxacin [From Cipro] Allergy Severe ANAPHYLAXIS Verified 08/15/19 14:53 ciprofloxacin HCl * Allergy Severe ANAPHYLAXIS Verified 08/15/19 14:53 [From Cipro] Sulfa (Sulfonamide Allergy Severe ANAPHYLAXIS Verified 08/15/19 14:53 Antibiotics) [Sulfa(Sulfonamide Antibiotics)] metoclopramide [From Reglan] Allergy Unknown Verified 08/15/19 14:53 ondansetron [From Zofran] Allergy Unknown Verified 08/15/19 14:53 Home Medications: Home Medication List Medication Instructions Recorded Confirmed Last Taken Type Levothyroxine [Synthroid] 50 microgm PO DAILY 09/09/12 08/15/19 08/15/19 History PRAVAstatin [Pravachol] 40 mg PO QHS 09/09/12 08/15/19 08/14/19 History Montelukast Sodium [Singulair] 10 mg PO DAILY 05/31/15 08/15/19 08/15/19 History Potassium Chloride [Klor-Con M20] 20 meq PO BID 03/30/17 08/15/19 08/15/19 History Insulin Degludec [Tresiba 45 unit SQ DAILY 01/03/18 08/15/19 08/15/19 History Flextouch U-200] Amitriptyline HCl 200 mg PO QHS 03/04/18 08/15/19 08/14/19 History Estradiol 1 mg PO DAILY 03/04/18 08/15/19 08/15/19 History Linaclotide [Linzess] 290 mcg PO DAILY 03/04/18 08/15/19 08/15/19 History Omeprazole 40 mg PO DAILY 05/05/19 08/15/19 08/15/19 History Divalproex [Depakote] 500 mg PO TID 08/15/19 08/15/19 08/15/19 History Liraglutide [Victoza] 1 appful SQ DAILY 08/15/19 08/15/19 08/15/19 History Vortioxetine Hydrobromide 20 mg PO QHS 08/15/19 08/15/19 08/14/19 History [Trintellix] Lorazepam [Ativan] 0.5 mg PO 4XDAY tab 08/16/19 Unknown Rx Nitrofurantoin Ralls/Macrocryst 100 mg PO BID #12 cap 08/16/19 Unknown Rx [Macrobid] - History of Present Illness-Syncope/Dizzy Nature of Presenting Problem: 49yof presents to ED cc near syncope with weakness, dizziness and substernal chest pain that is heavy and radiates up right side of neck after giving blood earlier. Pt has hx of seizures, DM and HTN. Pt is A&Ox3 and in no acute distress upon exam. Onset/Duration: reports: just prior to arrival Timing: reports: improving Context: reports: almost passed out Current Symptoms: reports: chest pain, weakness, lightheaded, dizzy, lightheaded Recently Seen Here or By Another Healthcare Provider: No - Dizziness Severity in ED: reports: mild Dizziness Related Current/Associated Symptoms: reports: weakness, lightheaded, dizzy, syncope Any recent trauma/injury?: reports: none Patient usually:: reports: walks without assistance Review of Systems - Adult - REVIEW OF SYSTEMS - ADULT Constitutional: reports: see HPI, fatique. denies: chills, fever Eyes: reports: no symptoms reported Ears, Nose, Mouth & Throat: reports: no symptoms reported Cardiovascular: reports: see HPI, chest pain, syncope. denies: palpitations Respiratory: reports: see HPI. denies: shortness of breath Gastrointestinal: reports: no symptoms reported Genitourinary: reports: no symptoms reported Musculoskeletal: reports: no symptoms reported Integumentary: reports: no symptoms reported Neurological: reports: see HPI, dizziness/vertigo, syncope (near) Psychiatric: reports: no symptoms reported Endocrine: reports: no symptoms reported Hematologic/Lymphatic: reports: no symptoms reported Allergic/Immunologic: reports: no symptoms reported All Other Systems: Reviewed and Negative Past History - Adult - PAST MEDICAL HISTORY-ADULT Review of Records: reports: Nursing Assessment Review, Medications Reviewed, Social history reviewed & non-contributory. Major Childhood Illnesses: reports: denies history Cardiovascular: reports: HTN, hyperlipidemia Respiratory: reports: COPD Gastrointestinal: reports: GERD Obstetrical/Gynecological: reports: denies history Genitourinary: reports: denies history Musculoskeletal: reports: chronic pain, other (hx hand injury with sensory loss on the dorsum of the hand, hx of back pain with reports decreased sensation of the right LE.) Neurological: reports: headaches/migraines, Seizures/Epilepsy, TIA Psychiatric: reports: anxiety Endocrine/Immune: reports: Diabetes, thyroid disorder Other Conditions: reports: denies history - PRIOR SURGERIES/PROCEDURES Surgical/Procedure History: reports: hysterectomy, reviewed, not pertinent, other, appendectomy, cholecystectomy, back/neck - IMMUNIZATION STATUS Childhood Immunizations: See Nurse Assessment Flu Vaccine: See Nurse Assessment - FAMILY HISTORY Family History: reviewed, not pertinent - SOCIAL HISTORY Smoking: denies Physical Exam-General - PHYSICAL EXAM-ADULT Initial Vital Signs Reviewed: Yes - CONSTITUTIONAL General Appearance: appears well, alert, no apparent distress. negative: anxious, combative - EYES Eyes: PERRL/EOMI, pink conjunctivae. negative: photophobia - HEAD, EARS, NOSE, MOUTH & THROAT HENMT: normocephalic/atraumatic, moist mucous membranes. negative: angioedema - NECK Neck: non-tender, full range of motion, supple - RESPIRATORY Respiratory: chest non-tender, lungs clear, normal breath sounds. negative: rales, wheezing - CARDIOVASCULAR Cardiovascular: normal peripheral pulses, regular rate, rhythm, no edema. negative: bradycardia, tachycardia - GASTROINTESTINAL (ABDOMEN) Abdominal Exam: normal bowel sounds, non tender, soft. negative: distended, rebound - LYMPHATIC Lymphatic: no adenopathy - MUSCULOSKELETAL Back Exam: normal inspection, no CVA tenderness, no vertebral tenderness Extremity: normal range of motion, normal inspection. negative: deformity - SKIN Integumentary: normal color. negative: diaphoresis, jaundice - PSYCHIATRIC Psych/Mental Status: normal mood/affect, oriented x 3. negative: anxious, disheveled Progress - PLAN OF CARE/RESULTS Progress/Plan/Lab Results: Orders Category Date Time Status Admit - [facility] Routine AdmDCTranf 08/15/19 18:09 Active Activity - Bed Rest with BRP ORDERED Care 08/15/19 18:10 Active Call Admitting on Arrival AT ADMISSION Care 08/15/19 18:11 Completed FALL Precautions now Care 08/15/19 20:51 Completed FSBS/Accucheck Result Q4HR Care 08/15/19 18:17 Active Neurological Check Q2H Care 08/15/19 18:10 Active Saline Loc DIRECTED Care 08/15/19 18:10 Completed Vital Signs Order ROUTINE Care 08/15/19 18:10 Completed Z-Document. for Tele Applied ORDERED Care 08/15/19 18:16 Completed Diabetic Diet Diet 08/15/19 18:15 Completed CHEST-1 VIEW [RAD] Stat Exams 08/15/19 15:46 Completed A1C HGB W EST AVG GLUCOSE [CHEM] Routine Lab 08/16/19 05:23 Completed AMMONIA [CHEM] Routine Lab 08/16/19 05:23 Completed AMYLASE [CHEM] Urgent Lab 08/15/19 20:47 Completed BLOOD CULTURE [BLDCUL] Routine Lab 08/15/19 21:40 Results CBC WITH DIFF [HEME] Routine Lab 08/16/19 05:23 Completed CBC WITH ELECTRONIC DIFF [HEME] Stat Lab 08/15/19 16:05 Completed COMPREHENSIVE METABOLIC PANEL [CHEM] Routine Lab 08/16/19 05:23 Completed COMPREHENSIVE METABOLIC PANEL [CHEM] Stat Lab 08/15/19 16:05 Completed D-DIMER [COAG] Stat Lab 08/15/19 16:05 Completed FREE T4 Routine Lab 08/16/19 05:23 Completed LIPASE [CHEM] Routine Lab 08/16/19 05:23 Completed LIPID PROFILE W/CALC LDL [LIPIDS] Routine Lab 08/16/19 05:23 Completed MAGNESIUM [CHEM] Routine Lab 08/16/19 05:23 Completed PHOSPHORUS [CHEM] Routine Lab 08/16/19 05:23 Completed PRO B-NATRIURETIC PEPTIDE Routine Lab 08/16/19 05:23 Completed PRO B-NATRIURETIC PEPTIDE Stat Lab 08/15/19 16:05 Completed PROTIME WITH INR [COAG] Stat Lab 08/15/19 16:05 Completed PTT [COAG] Stat Lab 08/15/19 16:05 Completed TROPONIN T Lab 08/15/19 20:47 Completed TROPONIN T Lab 08/16/19 05:23 Completed TROPONIN T Lab 08/16/19 13:00 Completed TROPONIN T Stat Lab 08/15/19 16:05 Completed TSH Routine Lab 08/16/19 05:23 Completed URINALYSIS W/POSS RFLX CULT [URINALYSIS] Stat Lab 08/15/19 19:19 Completed VALPROIC ACID [TDM] Stat Lab 08/15/19 16:05 Completed VITAMIN B12 Routine Lab 08/16/19 05:23 Completed 0.9% Sodium Chloride Inj [Ns] 1,000 ml Med 08/15/19 21:30 Discontinued Potassium Chloride 10 meq IV 100 mls/hr 0.9% Sodium Chloride Inj [Ns] 1,000 ml Med 08/15/19 15:46 Discontinued IV 999 mls/hr CefTRIAXONE [Rocephin] 1 gm Med 08/15/19 19:00 Discontinued 0.9% Sodium Chloride Inj [Ns] 50 ml IV Q24H Divalproex [Depakote] Med 08/15/19 21:00 Discontinued 500 mg PO TID@0900,1500,2100 Enoxaparin [Lovenox] Med 08/15/19 20:51 Discontinued 30 mg SUBQ DAILY Estradiol [Estrace] Med 08/16/19 09:00 Discontinued 1 mg PO DAILY Insulin Degludec [Tresiba Flextouch U-200] Med 08/16/19 09:00 Discontinued 30 unit SUBQ DAILY Insulin Lispro [Humalog] Med 08/15/19 18:17 Discontinued See Protocol SUBQ 0700,1100,1600,2100 PRN Levothyroxine [Synthroid] Med 08/16/19 07:00 Discontinued 50 microgm PO DAILY@0700 Linaclotide [Linzess] Med 08/16/19 09:00 Discontinued 290 microgm PO DAILY Lorazepam [Ativan] Med 08/15/19 21:00 Discontinued 0.5 mg PO 4XDAY Montelukast [Singulair] Med 08/16/19 09:00 Discontinued 10 mg PO DAILY Omeprazole [Prilosec] Med 08/16/19 09:00 Discontinued 40 mg PO DAILY PRAVAstatin [Pravachol] Med 08/15/19 21:00 Discontinued 40 mg PO QHS Potassium Chloride E.r. [Klor-Con] Med 08/15/19 21:00 Discontinued 20 meq PO BID Vortioxetine Hydrobromide [Trintellix] Med 08/15/19 21:00 Discontinued 20 mg PO QHS Oxygen Device Routine Oth 08/15/19 18:12 Completed Telemetry [OM.EQ] Routine Oth 08/15/19 18:10 Active EKG [EKG] Stat Ther 08/15/19 15:46 Draft Transfer/Admit Order [TRANSFER] Routine Transfer 08/15/19 18:20 Completed Result Diagrams: 08/16/19 05:23 08/16/19 05:23 - EKG 1 Time of EKG reading by physician:: 14:57 EKG Read and Signed by:: Hector Valle EKG Interpretation (*Must complete 3 of following elements*): Abnormal (cannot rule out inferior infarct) Rate: 87 Rhythm: nsr QRS: normal ST Wave: normal - XRAY 1 XRAY: Bilateral XRAY Study: Chest Impression: See EMR Report (IMPRESSION: Negative exam. Electronically signed by Doug Charlton 08/15/2019 4:05 PM) - CONSULTS/PCP/HOSPITALIST Notification #1 *Consult/PCP/Hospitalist*: Dr. Parker Time Discussed: 17:03 Consult Disposition: Will see in ED (saw pt and says if work up comes back fine pt can be discharged home) #2 Consult: Dr. Becerra Time Discussed: 17:53 Consult Disposition: other (will consult with Dr. Parker and call back) Departure - Departure Date of Disposition Decision: 08/15/19 Time of Disposition Decision: 17:02 DIAGNOSIS: Hyponatremia, Syncope and collapse Disposition: ADMITTED INPATIENT 09 Certified Medical Emergency: Emergent Condition: Stable - Critical Care Note This patient required my direct & personal management of CC.: No Attestation - Physician/ ELSIE Attestation Patient care was provided by Advanced Practice Provider:: No The physician spent face to face time with patient:: Yes Advanced Practice Provider documentation review:: Supervising physician onsite and consulted in the evaluation and care of this patient. The physician did have a face to face encounter with the patient. This chart was documented by the indicated scribe, (Sheila Miguel Scribe) and accurately reflects the services I performed and decisions made by me, Hector Valle MD, as attested by the provider's signature.
== END 2019-08-16 18:32 | disposition home or self-care (01) | DRG 315 ==
LOC: ED 14:16 → 2N 19:36
PROVIDERS: ADMIT Internal Medicine; ATTEND Internal Medicine

== ENCOUNTER 2019-08-19 13:38 | Inpatient (IN) ==
[2019-08-19 14:29] LABS: BASO# 0.01 X1000 (0.0-0.2); BASO% 0.1 % (0.0-0.8); EOS# 0.02 X1000 (0.0-0.7); EOS% 0.3 % (0.0-10.0); HEMATOCRIT 29.4 % (37.0-47.0); IMM GRAN# 0.03 X1000 (0.0-0.04); IMM GRAN% 0.4 % (0.0-0.5); LYMPH# 2.34 X1000 (1.2-3.4); LYMPH% 32.5 % (20.5-51.1); MCV 85.2 FL (81-99); MONO# 0.59 X1000 (0.11-0.59); MONO% 8.2 % (1.7-9.3); MPV 9.4 FL (7.4-10.4); NEUT# 4.21 X1000 (1.4-6.5); NEUT% 58.5 % (42.2-75.2); PLT 236 X1000 (130-400); RBC 3.45 XMIL (4.2-5.4); RDW 13.2 % (11.5-14.5)
--- NOTE | 2019-08-19 15:16 | Diag Imaging Result Doc PS360 ---
EXAM: CT HEAD W/O CONTRAST HISTORY: fall TECHNIQUE: CT head without contrast COMPARISON: None. FINDINGS: No parenchymal hemorrhage. No epidural or subdural hematoma. No subarachnoid hemorrhage. There is atrophy with chronic microvascular ischemic changes. No mass identified on this noncontrasted exam. No hydrocephalus. No skull fracture. IMPRESSION: No hemorrhage. No injury. This exam was performed using automated exposure control, adjustment of mA or kV according to patient size, and/or use of iterative reconstruction technique. Electronically signed by Doug Charlton 08/19/2019 3:13 PM
[2019-08-19 17:04] LABS: ESTIMATED GFR > 60
[2019-08-19 17:11] LABS: AGAP 14; ALB/GLOB RATIO 1.5; ALBUMIN 3.7 g/dL (3.5-5.0); ALKALINE PHOSPHATASE 55 U/L (32-104); BUN 7 mg/dL (8-22); CALCIUM 8.3 mg/dL (8.8-10.2); CHLORIDE 85 mmol/L (98-107); COSMO 244; CREATININE 0.6 mg/dL (0.5-0.9); GLUCOSE 174 mg/dL (70-104); GOT 20 U/L (10-30); GPT 18 U/L (10-36); POTASSIUM 3.8 mmol/L (3.5-5.1); TCO2 21 mmol/L (25-35); TOTAL BILIRUBIN 0.37 mg/dL (0.20-1.00); TOTAL PROTEIN 6.2 g/dL (6.3-8.3)
[2019-08-19 17:15] LABS: SODIUM 120 mmol/L (136-145)
[2019-08-19] MEDS ORDERED: NS 1,000 ML IV ONE ×2 (17:21→19:56)
--- NOTE | 2019-08-19 17:39 | PROVIDER DOCUMENTATION ---
This chart was entered by Sonam Boyd Scribe, acting as scribe for Brenden Aldrich DO. HPI-General Adult - General Chief Complaint: Low Blood Sugar Stated Complaint: "SUGAR FEELS LOW" Time Seen by Provider: 08/19/19 13:53 Source: patient, RN/MD Allergies/Adverse Reactions: Patient Allergies Allergy/AdvReac Type Severity Reaction Status Date / Time ciprofloxacin [From Cipro] Allergy Severe ANAPHYLAXIS Verified 08/19/19 14:00 ciprofloxacin HCl * Allergy Severe ANAPHYLAXIS Verified 08/19/19 14:00 [From Cipro] Sulfa (Sulfonamide Allergy Severe ANAPHYLAXIS Verified 08/19/19 14:00 Antibiotics) [Sulfa(Sulfonamide Antibiotics)] metoclopramide [From Reglan] Allergy Unknown Verified 08/19/19 14:00 ondansetron [From Zofran] Allergy Unknown Verified 08/19/19 14:00 Home Medications: Home Medication List Medication Instructions Recorded Confirmed Last Taken Type Levothyroxine [Synthroid] 50 microgm PO DAILY 09/09/12 08/19/19 08/19/19 History PRAVAstatin [Pravachol] 40 mg PO QHS 09/09/12 08/19/19 1 Day Ago History ~08/18/19 Montelukast Sodium [Singulair] 10 mg PO DAILY 05/31/15 08/19/19 08/19/19 History Potassium Chloride [Klor-Con M20] 20 meq PO BID 03/30/17 08/19/19 08/19/19 History Insulin Degludec [Tresiba 60 unit SQ DAILY 01/03/18 08/19/19 08/19/19 History Flextouch U-200] Amitriptyline HCl 200 mg PO QHS 03/04/18 08/19/19 1 Day Ago History ~08/18/19 Estradiol 1 mg PO DAILY 03/04/18 08/19/19 08/19/19 History Linaclotide [Linzess] 290 mcg PO DAILY 03/04/18 08/19/19 08/19/19 History Omeprazole 40 mg PO DAILY 05/05/19 08/19/19 08/19/19 History Divalproex [Depakote] 500 mg PO TID 08/15/19 08/19/19 08/19/19 History Liraglutide [Victoza] 1 appful SQ DAILY 08/15/19 08/19/19 08/19/19 History Vortioxetine Hydrobromide 20 mg PO QHS 08/15/19 08/19/19 1 Day Ago History [Trintellix] ~08/18/19 Lorazepam [Ativan] 0.5 mg PO 4XDAY tab 08/16/19 08/19/19 08/19/19 Rx Methylprednisolone [Medrol Dosepak] 4 mg PO DIRECTED 08/19/19 08/19/19 08/19/19 History Nitrofurantoin Macrocrystal 100 mg PO BID 08/19/19 08/19/19 08/19/19 History [Macrodantin] - History of Present Illness -Gen Adult Nature of Presenting Problems: 49 yowf c/o visiting mom in hospital and went to go get her rn and sts "feet want to go faster than her body," migraine, dizziness, sinus congestion and possible low fsbs. rn sts pt was seen by Dr. Gilliland for her walking problem and referred pt to Dr. Jacobson. pt takes excedrin migraine for migraines. pt sts when blowing nose has white/yellow d/c. pt migraine is frontal. pt fsbs in er is 152. denies any other pain. has hx of dm and seizures. last seizure was 1 month ago. pt was admitted to hospital for low sodium about 1 month ago. Severity: reports: mild Onset/Duration: reports: just prior to arrival Context/Activities at Onset: reports: light activity Modifying Factors: improves with: nothing - Diabetes Related Context Context: reports: low blood sugar Review of Systems - Adult - REVIEW OF SYSTEMS - ADULT Constitutional: reports: no symptoms reported. denies: chills, fatique, night sweats Eyes: reports: no symptoms reported Ears, Nose, Mouth & Throat: reports: see HPI, sinus problem. denies: epistaxis, hoarseness, throat pain Cardiovascular: reports: no symptoms reported Respiratory: reports: no symptoms reported Gastrointestinal: reports: no symptoms reported Genitourinary: reports: no symptoms reported Musculoskeletal: reports: no symptoms reported Integumentary: reports: no symptoms reported Neurological: reports: see HPI, dizziness/vertigo, headache/migraines, other ("feet want to go faster than body"). denies: ataxia, loss of balance, syncope Psychiatric: reports: no symptoms reported Endocrine: reports: see HPI, other (poss low fsbs). denies: change in skin pigment, excessive sweating, polyuria Hematologic/Lymphatic: reports: no symptoms reported Allergic/Immunologic: reports: no symptoms reported All Other Systems: Reviewed and Negative Past History - Adult - PAST MEDICAL HISTORY-ADULT Review of Records: reports: Old Records Reviewed, Nursing Assessment Review, Medications Reviewed, Social history reviewed & non-contributory. Major Childhood Illnesses: reports: denies history Cardiovascular: reports: HTN, hyperlipidemia Respiratory: reports: COPD Gastrointestinal: reports: GERD Obstetrical/Gynecological: reports: denies history Genitourinary: reports: denies history Musculoskeletal: reports: chronic pain, other (hx hand injury with sensory loss on the dorsum of the hand, hx of back pain with reports decreased sensation of the right LE.) Neurological: reports: headaches/migraines, Seizures/Epilepsy, TIA Psychiatric: reports: anxiety Endocrine/Immune: reports: Diabetes, thyroid disorder Other Conditions: reports: denies history - PRIOR SURGERIES/PROCEDURES Surgical/Procedure History: reports: hysterectomy, reviewed, not pertinent, other, appendectomy, cholecystectomy, back/neck - IMMUNIZATION STATUS Childhood Immunizations: See Nurse Assessment Flu Vaccine: See Nurse Assessment - FAMILY HISTORY Family History: reviewed, not pertinent - SOCIAL HISTORY Smoking: non-smoker Substance Use: none/never Physical Exam-General - PHYSICAL EXAM-ADULT Initial Vital Signs Reviewed: Yes - CONSTITUTIONAL General Appearance: appears well, alert, no apparent distress. negative: cachetic, lethargic, slow to respond - EYES Eyes: PERRL/EOMI, pink conjunctivae - HEAD, EARS, NOSE, MOUTH & THROAT HENMT: normocephalic/atraumatic, normal ENT inspection, TMs normal, pharynx normal. negative: moist mucous membranes (mild dry mucous membranes) - NECK Neck: non-tender, full range of motion, supple, normal inspection - RESPIRATORY Respiratory: chest non-tender, lungs clear, normal breath sounds - CARDIOVASCULAR Cardiovascular: normal peripheral pulses, regular rate, rhythm - GASTROINTESTINAL (ABDOMEN) Abdominal Exam: normal bowel sounds, soft, no organomegaly, no pulsatile mass, tenderness (to palp rlq). negative: non tender, guarding, rigid, rebound - LYMPHATIC Lymphatic: no adenopathy - MUSCULOSKELETAL Back Exam: normal inspection, no CVA tenderness, no vertebral tenderness Extremity: normal range of motion, non-tender, normal inspection Peripheral Pulses: dorsalis-pedis (R): 2+, dorsalis-pedis (L): 2+ - SKIN Integumentary: normal color, normal turgor, warm/dry - NEUROLOGIC Neurologic: grossly normal, no motor/sensory deficits - PSYCHIATRIC Psych/Mental Status: normal mood/affect, normal thought content, normal thought process, oriented x 3 Progress - PLAN OF CARE/RESULTS Progress/Plan/Lab Results: Vital Signs - 8 hr 08/19/19 13:41 Temperature 97.6 F Pulse Rate 97 H Respiratory Rate 16 Blood Pressure 102/71 O2 Sat by Pulse Oximetry 100 Laboratory Results - last 24 hr 08/19/19 13:45 POC Glucose 152 H Result Diagrams: 08/19/19 14:14 08/19/19 14:14 - CT/MRI 1 CT Study: Head Impression: Normal, See EMR Report (EXAM: CT HEAD W/O CONTRAST HISTORY: fall TECHNIQUE: CT head without contrast COMPARISON: None. FINDINGS: No parenchymal hemorrhage. No epidural or subdural hematoma. No subarachnoid hemorrhage. There is atrophy with chronic microvascular ischemic changes. No mass identified on this noncontrasted exam. No hydrocephalus. No skull fracture. IMPRESSION: No hemorrhage. No injury. This exam was performed using automated exposure control, adjustment of mA or kV according to patient size, and/or use of iterative reconstruction technique. Electronically signed by Doug Charlton 08/19/2019 3:13 PM) Comparison with other Films: no prior study - CONSULTS/PCP/HOSPITALIST Notification #1 *Consult/PCP/Hospitalist*: Dr. Smith for Dr. Samuel Time Discussed: 17:20 Consult Disposition: Admit Departure - Departure Date of Disposition Decision: 08/19/19 Time of Disposition Decision: 17:38 DIAGNOSIS: Hyponatremia Disposition: ADMITTED INPATIENT 09 Certified Medical Emergency: Emergent Condition: Serious Referrals and Follow-Ups: Nate Samuel MD [Primary Care Provider] - - Critical Care Note This patient required my direct & personal management of CC.: No Attestation - Physician/ ELSIE Attestation Patient care was provided by Advanced Practice Provider:: No The physician spent face to face time with patient:: Yes Advanced Practice Provider documentation review:: Supervising physician onsite and consulted in the evaluation and care of this patient. The physician did have a face to face encounter with the patient. This chart was documented by the indicated scribe, (Sonam Boyd Scribe) and accurately reflects the services I performed and decisions made by , Brenden Aldrich DO, as attested by the provider's signature.
[2019-08-19] MEDS ORDERED: SYNTHROID PO ONE (17:45)
[2019-08-19] MEDS ORDERED: ATIVAN PO ONE (17:45)
[2019-08-19] MEDS ORDERED: DEPAKOTE PO ONE (17:45)
[2019-08-19] MEDS: TYLENOL PO PRN (18:27)
[2019-08-19] MEDS: HUMULIN R SUBQ SCH (20:14)
[2019-08-19] MEDS: PRAVACHOL PO SCH (20:37)
[2019-08-19] MEDS: ATIVAN PO SCH (20:37)
[2019-08-19] MEDS: SODIUM CHLORIDE 0.9% INJ SCH (20:37)
[2019-08-19] MEDS: TORADOL IV PRN (20:37)
[2019-08-19] MEDS: PROTONIX IV SCH (20:37)
[2019-08-19] MEDS: DEPAKOTE PO SCH (20:38)
[2019-08-19] MEDS ORDERED: ATIVAN PO SCH (21:00)
--- NOTE | 2019-08-19 21:16 | HISTORY AND PHYSICAL ---
CHIEF COMPLAINT: Shaking spells. HISTORY OF PRESENT ILLNESS: She is a 49-year-old white female who had been visiting her mother in the hospital, and actually I met her this morning when I was making rounds on the 1st floor. This afternoon she was shaking and went to the emergency room and thought her blood sugars were dropping. Her sodium level was 120. The ER physician was called due to altered mental status and shaking due to hyponatremia which is worsening from the previous admission recently. She was discharged 3 days ago. Basically admitted to the hospital for altered mental status due to hyponatremia. It looked like SIADH. I do not see any significant volume overload. As a result, hospital admission was warranted. PAST MEDICAL HISTORY: 1. Depression with anxiety. 2. Hyperlipidemia. 3. Hypothyroidism. 4. Allergic sinusitis. 5. Type 2 diabetes. 6. History of seizure disorder and history of migraine headaches. 7. Postmenopausal. 8. Chronic constipation due to IBS. 9. Acid reflux disease. 10. History of celiac disease. 11. Peripheral neuropathy due to diabetes. ALLERGIES: Reported to ciprofloxacin, sulfa drugs, Reglan, Zofran. PAST SURGICAL HISTORY REPORTED: 1. C-spine surgery. 2. Cholecystectomy. 3. Appendectomy. 4. Hysterectomy. 5. Bilateral knee arthroscopies. 6. Back surgery. 7. Right wrist surgery. MEDICATIONS: 1. Pravachol 40 mg daily, Synthroid 50 mcg daily, Singulair 10 daily, potassium 20 mEq b.i.d., Tresiba 60 units daily, amitriptyline 200 at bedtime, estradiol 1 mg daily, Linzess 290 mcg daily, omeprazole 40 mg daily Victoza 0.6 subcutaneously daily, Trental X 20 mg daily, Depakote 500 t.i.d., lorazepam 0.5 mg 4 times daily. SOCIAL HISTORY: She is , disabled, lives in [place]. No smoking, no alcohol. FAMILY HISTORY: Mother is in the hospital. Father is at home. REVIEW OF SYSTEMS: HEENT: Some headaches. No vision problem. No earache. No sore throat. Neck: No neck pain, no goiter, no lymphadenopathy. Cardiopulmonary: No chest pain, shortness of breath, PND, orthopnea. GI: No nausea, vomiting, abdominal pain, diarrhea. : No history of hesitancy, frequency, dysuria. Menopause, on hormone replacement therapy. Extremities: No swelling of legs. No joint pain. Musculoskeletal: Chronic back pain. Neurological: No neurological symptoms or weakness or seizures. PHYSICAL EXAMINATION: Temperature is 98.7 degrees, pulse 97. Blood pressure is stable. Height 5 feet 4 inches, weight 165 pounds. HEENT: Atraumatic, normocephalic. Pupils equal, react to light. TMs are normal. Nose and throat within normal limits. NECK: Supple. No lymphadenopathy. No goiter. CHEST: Bilateral air entry. CARDIOVASCULAR: Heart sounds are regular. No murmur. ABDOMEN: Belly is soft, nontender. Good bowel sounds. No signs of peritonitis. EXTREMITIES: No peripheral edema or cyanosis. NEUROLOGIC: No obvious neurological deficits. INVESTIGATIONS: White cell count 7.2, hematocrit 30, platelet 236. Sodium 120, potassium 3.8, chloride 85, BUN 7, creatinine 0.6, glucose 164. Serum osmolality 252, calcium 8.3. LFTs were normal. CT head: No hemorrhage, no injury. ASSESSMENT AND PLAN: 1. A 49-year-old white female admitted to the hospital with altered mental status due to hyponatremia, rule out SIADH. This could be from the selective serotonin reuptake inhibitors. We will check the urine osmolality, serum osmolality, cortisol, free T4 and TSH, and urine sodium. 2. Decrease IV fluids to 80 mL an hour. Follow up on sodium levels. 3. Chronic anxiety. Continue on Ativan and Depakote. 4. Type 2 diabetes. ADA diet. Insulin with sliding scale with insulin coverage. 5. Deep venous thrombosis and gastrointestinal prophylaxis with Lovenox and proton pump inhibitor. 6. Reconcile home medications, and will follow up. cc: Humberto Smith MD
[2019-08-19] MEDS: TRINTELLIX PO SCH (22:20)
[2019-08-20] MEDS: TORADOL IV PRN ×3 (03:08→21:05)
[2019-08-20] MEDS ORDERED: INSULIN PEN NEEDLES ONE (04:58)
[2019-08-20 06:01] LABS: AGAP 10; BUN 6 mg/dL (8-22); CHLORIDE 85 mmol/L (98-107); COSMO 243; CREATININE 0.6 mg/dL (0.5-0.9); ESTIMATED GFR > 60; GLUCOSE 92 mg/dL (70-104); POTASSIUM 3.2 mmol/L (3.5-5.1); SODIUM 122 mmol/L (136-145); TCO2 27 mmol/L (25-35)
[2019-08-20 06:08] LABS: FREE T4 1.35 ng/dL (0.93-1.70); TSH 0.41 uIUmL (0.27-4.20)
[2019-08-20] MEDS: HUMULIN R SUBQ SCH ×4 (06:28→21:05)
[2019-08-20] MEDS: SYNTHROID PO SCH (06:28)
[2019-08-20] MEDS ORDERED: CORTROSYN IV ONE (08:17)
[2019-08-20] MEDS ORDERED: SYNTHROID PO SCH (09:00)
[2019-08-20] MEDS ORDERED: KLOR-CON PO ONE (09:47)
[2019-08-20] MEDS: SINGULAIR PO SCH (09:54)
[2019-08-20] MEDS: DEPAKOTE PO SCH ×3 (09:54→21:04)
[2019-08-20] MEDS: ATIVAN PO SCH ×4 (09:54→21:04)
[2019-08-20] MEDS: ESTRACE PO SCH (09:54)
[2019-08-20] MEDS: LINZESS PO SCH (09:55)
[2019-08-20] MEDS: TRESIBA FLEXTOUCH U-200 SUBQ SCH (09:55)
[2019-08-20] MEDS: LOVENOX SUBQ SCH (09:55)
[2019-08-20] MEDS: MIRALAX PO SCH ×2 (10:24→21:07)
[2019-08-20] MEDS: POTASSIUM CHLORIDE 20 MEQ/SWI 20 MEQ/100 ML IVPB IV SCH ×2 (11:27→17:25)
--- NOTE | 2019-08-20 12:16 | PROGRESS NOTE ---
DATE: 08/20/2019 SUBJECTIVE: The patient complains of some headaches and abdominal pain. She had extensive workup done by Dr. Samuel and admitted for hyponatremia. PHYSICAL EXAMINATION: Vital signs: Temperature is 98 degrees, blood pressure is stable. HEENT: Within normal limits. Neck: Supple. Chest: Clear. Heart: Sounds are regular. Abdomen: Belly is soft, nontender. INVESTIGATIONS: Sodium 132, potassium 3.2, chloride 85, BUN 6, creatinine 0.6, glucose 136. TSH and free T4 are normal. Baseline cortisol 1.0. Urine osmolality 225. Urine sodium 36. ASSESSMENT AND PLAN: 1. Hyponatremia. It looks like SIADH. 2. Baseline cortisol is very low. We will do the cortisone stimulation test. 3. Hypokalemia. Replace the potassium. Continue IV fluids and repeat the SMA-7 in the morning. 4. Hypothyroidism, stable. 5. Constipation, on Linzess. 6. DVT and GI prophylaxis as per order sheet. 7. Orthostatic blood pressure and will follow up on cortisone stimulation test and hyponatremia. LEVEL OF DOCUMENTATION: 25 minutes. cc: Humberto Smith MD
[2019-08-20] MEDS ORDERED: NS 500 ML IV SCH (15:15)
[2019-08-20] MEDS ORDERED: NS 500 ML IV ONE (15:16)
[2019-08-20] MEDS: PROTONIX IV SCH (21:05)
[2019-08-20] MEDS: PRAVACHOL PO SCH (21:05)
[2019-08-20] MEDS: TRINTELLIX PO SCH (21:05)
[2019-08-20] MEDS: SODIUM CHLORIDE 0.9% INJ SCH (21:05)
[2019-08-21] MEDS ORDERED: SODIUM CHLORIDE 0.9% INJ ONE (01:59)
[2019-08-21] MEDS ORDERED: PHENERGAN IV ONE (01:59)
[2019-08-21 06:11] LABS: AGAP 9; BUN 8 mg/dL (8-22); CALCIUM 7.9 mg/dL (8.8-10.2); CHLORIDE 87 mmol/L (98-107); COSMO 241; CREATININE 0.8 mg/dL (0.5-0.9); ESTIMATED GFR > 60; GLUCOSE 171 mg/dL (70-104); POTASSIUM 4.1 mmol/L (3.5-5.1); TCO2 22 mmol/L (25-35)
[2019-08-21 06:12] LABS: SODIUM 119 mmol/L (136-145)
[2019-08-21] MEDS: HUMULIN R SUBQ SCH ×4 (06:33→20:52)
[2019-08-21] MEDS: SYNTHROID PO SCH (06:33)
--- NOTE | 2019-08-21 07:19 | PROGRESS NOTE ---
DATE: 08/21/2019 SUBJECTIVE: Ms. Noel is a 49-year-old white female patient, admitted with diarrhea. The patient also had some nausea. She was shaking. The patient does have underlying psych disorder in the form of shaking, anxiety, bipolar disorder. The patient went to the ER. Her sodium was low, and the patient was admitted for further care. The patient is doing better. Her sodium is still low. She denied any fever or chills. Dull headache. No typical chest pain or palpitations. Mild cough. No expectoration. Workup in the ER, her CT scan showed no hemorrhage or injury. OBJECTIVE: Vital Signs: Noted. At times, blood pressure low normal. Neck: Supple. No JVD. Lungs: Bilateral good air entry present. Cardiovascular: S1 and S2 heard. Abdomen: Soft, globular. Bowel sounds present. INTELLECTUAL PROPERTY MANAGER: Alert, awake, able to move all 4 limbs. LABORATORY DATA: Lab data done today: Sodium 119. TSH 0.41, free T4 of 1.35. Cortisol level was low; it was 1. Potassium 4.1. Anion gap was 8. BUN was 8, and creatinine 0.8. The patient does have hyponatremia. Cortisol level is low. PLAN: I am going to hydrate the patient as she had diarrhea. Continue the rest of the treatment and close observation. I am going to get Nephrology consult with Dr. Russell for further evaluation. Her other problems include diabetes mellitus, history of bipolar disorder, hypothyroidism. Overall plan discussed with the patient, and she is in agreement. cc: MD Humberto Lam MD
[2019-08-21] MEDS: MIRALAX PO SCH (09:04)
[2019-08-21] MEDS: LINZESS PO SCH (09:07)
[2019-08-21] MEDS: SINGULAIR PO SCH (09:07)
[2019-08-21] MEDS: DEPAKOTE PO SCH ×3 (09:07→20:43)
[2019-08-21] MEDS: LOVENOX SUBQ SCH (09:07)
[2019-08-21] MEDS: ESTRACE PO SCH (09:08)
[2019-08-21] MEDS: TRESIBA FLEXTOUCH U-200 SUBQ SCH (09:08)
--- NOTE | 2019-08-21 10:06 | EKG Report ---
Test Performed on : 08/19/2019 6:19:26 PM Test Reason : ED. NO EKG ORDER FOR MUSE Blood Pressure : / mmHG Vent. Rate : 096 BPM Atrial Rate : 096 BPM P-R Int : 174 ms QRS Dur : 096 ms QT Int : 360 ms P-R-T Axes : 054 -10 055 degrees QTc Int : 454 ms Normal sinus rhythm. Nonspecific T wave abnormality Abnormal ECG When compared with ECG of 15-AUG-2019 14:57, (Unconfirmed) No significant change was found Unconfirmed Result
[2019-08-21] MEDS: ATIVAN PO SCH ×4 (10:15→20:42)
[2019-08-21] MEDS: NS + KCL 20 MEQ 1,000 ML IV SCH ×2 (10:48→18:26)
[2019-08-21 12:38] LABS: ESTIMATED GFR > 60
[2019-08-21 12:46] LABS: AGAP 8; BUN 6 mg/dL (8-22); CALCIUM 8.4 mg/dL (8.8-10.2); CHLORIDE 89 mmol/L (98-107); COSMO 244; CREATININE 0.6 mg/dL (0.5-0.9); GLUCOSE 169 mg/dL (70-104); POTASSIUM 4.5 mmol/L (3.5-5.1); TCO2 23 mmol/L (25-35)
[2019-08-21 12:56] LABS: SODIUM 120 mmol/L (136-145)
[2019-08-21] MEDS: LASIX PO SCH (13:02)
[2019-08-21] MEDS ORDERED: ZOFRAN IV PRN (13:33)
[2019-08-21] MEDS: TORADOL IV PRN ×2 (13:38→20:42)
[2019-08-21] MEDS: SODIUM CHLORIDE 0.9% INJ SCH (20:42)
[2019-08-21] MEDS: PROTONIX IV SCH (20:42)
[2019-08-21] MEDS: TRINTELLIX PO SCH (20:43)
[2019-08-21] MEDS: PRAVACHOL PO SCH (20:43)
--- NOTE | 2019-08-21 21:04 | NEPHROLOGY CONSULTATION ---
DATE: 08/21/2019 Chief complaint: I was shaking and feeling like I was going to pass out when I came to visit my mom. HPI: this is a chronically ill appearing 49-year-old white female who was in the hospital visiting her mother when she became dizzy, tremulous, and experienced feelings of near-syncope. She was in the hospital herself just this past Wednesday with hyponatremia that was treated with Saline and she was discharged on Wednesday. Upon checking her labs this present time she had a sodium of 120. She was admitted and has been seen by primary care for the past couple of days without resolution of her hyponatremia. She has been treated with normal Saline and fluid restrictions. Past medical history: depression with anxiety, hyperlipidemia, hypothyroidism, allergic sinusitis, type two diabetes mellitus, history of seizure disorder, chronic constipation due to IBS, Gerd, celiac disease, and peripheral neuropathy. Past surgical history: cholecystectomy, appendectomy, hysterectomy, right and left wrist surgery, lower back surgery, bilateral knee arthroscopies. Social history: she lives with her . She is on disability For chronic pain. She denies current tobacco, alcohol and illicit drug use. Family history: mother has coronary disease Allergies: Ciprofloxacin, sulfa, Reglan, Zofran. Home medications: Pravachol, Synthroid, Singulair, potassium, tresiba, amitriptyline, estradiol, Linzess, omeprazole, Victosa, trintellix, Depakote, and lorazepam. Review of systems: neurological: denies any altered mentation or confusion. Eyes: denies blurriness, dryness, or change in visual acuity. ENT: denies tonight us, discharge, or changing hearing. Integumentary: denies any color change, itching, or rashes. Respiratory: denies any shortness of breath orthopnea. Cardiovascular: denies chest pain, palpitations, or thrills. GI: Admits to nausea and vomiting but denies abdominal tenderness. : denies any change in color, amount, or odor. Endocrine: admits to excessive thirst. Denies excessive hunger. Musculoskeletal: denies increased weakness or pain. Denies swelling in extremities. Labs: Sodium 120, potassium 4.5, chloride 89, carbon dioxide 23, and I get eight, BUN six, creatinine 0.6, glucose 169, calculated osmolality 244, calcium 8.4, urine osmolality 2 to 5, urine random sodium 36. TSH 0.41, free T4 1.35, cortisol 1.0 Imaging: CT head without contrast shows atrophy with chronic microvascular ischemic changes. Physical Exam: temperature 98.2, pulse 83, respirations 17, blood pressure 109/69, 02 sat 99% on room air. General: this is a Middle Aged white female who appears older than her age in no acute distress. HEENT: Normocephalic, age for [place], pupils equal round and reactive to light. Trachea midline. Dry mucous membranes. Skin: pale, warm and dry Neck: supple, 6 cm JVD. Cardiovascular: regular rate and rhythm with no murmurs or gallops. Respiratory: lungs clear bilaterally with equal excursion. Abdomen: obese, soft, nondistended and nontender. : non-inspected. Extremities: no edema, cyanosis, or clubbing. Neurological: alert and oriented to person, place, and time. Assessment and plan: Hyponatremia. Multifactorial. She is on 3 drugs that are notorious for hyponatremia. Does include amitriptyline 200 mg daily, Depakote, Trintellix . Also, her Elavil may cause her to drink more water. She certainly does have high water intake explaining her marginally low urine osmolality. I counseled her to decrease her p.o. liquid intake. She is still on normal saline so I added low-dose Lasix today as well. We will observe her response. cc: MD Humberto Carrasco MD MTDD
[2019-08-22] MEDS: TYLENOL PO PRN ×2 (00:32→06:39)
[2019-08-22] MEDS: MIRALAX PO SCH ×2 (04:48→09:43)
[2019-08-22] MEDS: TORADOL IV PRN ×3 (04:48→22:18)
[2019-08-22] MEDS: NS + KCL 20 MEQ 1,000 ML IV SCH (04:52)
[2019-08-22 05:15] LABS: ESTIMATED GFR > 60
[2019-08-22 05:24] LABS: AGAP 8; BUN 6 mg/dL (8-22); CALCIUM 7.9 mg/dL (8.8-10.2); CHLORIDE 88 mmol/L (98-107); COSMO 240; CREATININE 0.7 mg/dL (0.5-0.9); GLUCOSE 96 mg/dL (70-104); POTASSIUM 4.4 mmol/L (3.5-5.1); TCO2 24 mmol/L (25-35)
[2019-08-22 05:37] LABS: SODIUM 120 mmol/L (136-145)
[2019-08-22] MEDS: SYNTHROID PO SCH ×2 (05:49→21:09)
[2019-08-22] MEDS: HUMULIN R SUBQ SCH ×4 (06:35→20:52)
--- NOTE | 2019-08-22 06:43 | PROGRESS NOTE ---
DATE: 08/22/2019 SUBJECTIVE: Ms. Noel is doing fair. The patient claims she fell last night in the bathroom, and she hit her head. Dull headache. According to the nurses, they did not report any major falls. Patient does not seem to be in any distress. No high-grade fever or chills. No recent seizure- type episode. Her blood pressure is improving. No diarrhea, blood, or mucus in the stool. History part is limited. OBJECTIVE: Vital Signs: Noted. Neck: Supple. No JVD. Lungs: Bibasilar crepitations. Heart: S1 and S2 heard. Abdomen: Soft. Nontender. Bowel sounds present. Extremities: No cyanosis or clubbing. No acute DVT. FORESTRY HUNTER: Alert, awake, and able to move all 4 limbs. CONSIDERATION: 1. The patient was complaining of unsteady on her legs. I am going to get physical therapy. The patient's problems includes hyponatremia most likely medication induced. Appreciate Dr. Russell's help managing this patient. We are following her sodium level. 2. Diabetes mellitus. Her blood sugar was 96. I am going to cut back her insulin. The patient had a cosyntropin test done because of low cortisol level. Result is pending. 3. Her other problem includes mild hypothyroidism. Patient's labs and medication noted. 4. Discussed fall precautions. cc: MD Humberto Lam MD
[2019-08-22] MEDS: ESTRACE PO SCH (09:33)
[2019-08-22] MEDS: DEPAKOTE PO SCH ×3 (09:33→21:11)
[2019-08-22] MEDS: SINGULAIR PO SCH (09:33)
[2019-08-22] MEDS: LINZESS PO SCH (09:33)
[2019-08-22] MEDS: LOVENOX SUBQ SCH (09:35)
[2019-08-22] MEDS: TRESIBA FLEXTOUCH U-200 SUBQ SCH (09:36)
[2019-08-22] MEDS: LASIX PO SCH (09:40)
--- NOTE | 2019-08-22 10:36 | NEPHROLOGY PROGRESS NOTE ---
DATE: 08/22/2019 SUBJECTIVE: She still complains of orthostasis. She went to the floor but no clear loss of consciousness and no injury. OBJECTIVE: Vital Signs: Blood pressure 110/62, heart rate 79, respirations 16, afebrile. General: No acute distress. Skin: Warm and dry. Neck: Neck veins are not distended. Oropharynx is clear. Heart: Regular. No gallops. Lungs: Equal, no crackles. Abdomen: Soft, nontender. Bowel sounds present. Extremities: No edema clubbing or cyanosis. IMPRESSION: Hyponatremia. Sodium still 120 this morning. Her Elavil has been decreased. She is attempting to follow the fluid restriction that we ordered. Continue saline diuresis. cc: MD Humberto Carrasco MD
[2019-08-22] MEDS: ATIVAN PO SCH ×4 (10:51→20:42)
[2019-08-22] MEDS: PRAVACHOL PO SCH (20:41)
[2019-08-22] MEDS: PROTONIX PO SCH (20:42)
[2019-08-22] MEDS: TRINTELLIX PO SCH (20:42)
[2019-08-23 04:47] LABS: BASO# 0.01 X1000 (0.0-0.2); BASO% 0.2 % (0.0-0.8); EOS% 1.7 % (0.0-10.0); HEMATOCRIT 27.6 % (37.0-47.0); HEMOGLOBIN 9.4 g/dL (12.0-16.0); IMM GRAN# 0.03 X1000 (0.0-0.04); IMM GRAN% 0.5 % (0.0-0.5); LYMPH# 1.59 X1000 (1.2-3.4); LYMPH% 26.5 % (20.5-51.1); MCH 29.6 PG (27-31); MCHC 34.1 g/dL (33-37); MCV 86.8 FL (81-99); MONO% 8.3 % (1.7-9.3); MPV 9.4 FL (7.4-10.4); NEUT# 3.78 X1000 (1.4-6.5); NEUT% 62.8 % (42.2-75.2); PLT 242 X1000 (130-400); RBC 3.18 XMIL (4.2-5.4); RDW 13.4 % (11.5-14.5); WBC 6.01 X1000 (4.8-10.8)
[2019-08-23 04:53] LABS: AGAP 12; ALB/GLOB RATIO 1.3; ALKALINE PHOSPHATASE 57 U/L (32-104); BUN 5 mg/dL (8-22); CALCIUM 7.6 mg/dL (8.8-10.2); CHLORIDE 87 mmol/L (98-107); COSMO 245; CREATININE 0.6 mg/dL (0.5-0.9); ESTIMATED GFR > 60; GLUCOSE 165 mg/dL (70-104); GOT 11 U/L (10-30); GPT 11 U/L (10-36); MAGNESIUM 1.8 mg/dL (1.5-2.7); PHOSPHORUS 3.3 mg/dL (2.7-4.5); POTASSIUM 4.7 mmol/L (3.5-5.1); SODIUM 121 mmol/L (136-145); TCO2 22 mmol/L (25-35); TOTAL BILIRUBIN 0.24 mg/dL (0.20-1.00); TOTAL PROTEIN 5.4 g/dL (6.3-8.3)
[2019-08-23] MEDS: SYNTHROID PO SCH (06:22)
[2019-08-23] MEDS: HUMULIN R SUBQ SCH ×4 (06:25→21:24)
[2019-08-23] MEDS ORDERED: CORTROSYN IV ONE (06:59)
--- NOTE | 2019-08-23 07:02 | PROGRESS NOTE ---
DATE: 08/23/2019 SUBJECTIVE: Ms. Noel is doing fair. The patient had fallen 3 times yesterday. The patient claimed one time, she did hit her head. According to nurses, her fall was not significant. Sometimes nurses think she is putting herself down. Whether it is behavior or not is hard to tell, but there is a possibility. The patient had Ativan and Phenergan in her purse, and the patient was taking those pills possibly. At times, the patient was much more drowsy. No fever or chills. No typical chest pain or palpitation. No nausea or vomiting. Her cortisol level was low. I am going to check cortisol and cosyntropin test. OBJECTIVE: Vital Signs: Noted. Neck: Supple. No JVD. Lungs: Bibasilar crepitations. Heart: S1 and S2 heard. Abdomen: Soft, globular. Bowel sounds present. Extremities: No cyanosis, clubbing. No acute DVT. PLASTIC SHEETING CUTTER: Alert, awake, able to move all 4 limbs. ASSESSMENT AND PLAN: Frequent falls. The patient claims she gets weak and she is falling. We are doing orthostatics blood pressure. I am going to do neurologic checks. The patient still has hyponatremia. I talked to Dr. Russell. He is following the patient with us. Her magnesium was 1.8. Phosphorus was normal. TSH and free T4 were acceptable. The patient had history of bipolar disorder. Other problem includes diabetes mellitus. Continue rest of the treatment and close observation. Lab done today noted and discussed with the patient. cc: MD Humberto Lam MD
--- NOTE | 2019-08-23 07:37 | Diag Imaging Result Doc PS360 ---
CT HEAD W/O CONTRAST - 08/23/2019 INDICATION: headache COMPARISON: 08/19/2019 FINDINGS: There is stable moderate atrophy worst at frontal and temporal lobes. No intracranial mass or hemorrhage. The skull is intact. The sinuses, mastoids, and middle ears are clear. IMPRESSION: No acute disease or change from prior. This exam was performed using automated exposure control, adjustment of mA or kV according to patient size, and/or use of iterative reconstruction technique Electronically signed by Manuel Rousseau 08/23/2019 7:35 AM
[2019-08-23] MEDS ORDERED: SODIUM CHLORIDE 0.9% 10 ML ONE (07:40)
[2019-08-23] MEDS: SINGULAIR PO SCH (09:01)
[2019-08-23] MEDS: DEPAKOTE PO SCH ×3 (09:01→20:33)
[2019-08-23] MEDS: ATIVAN PO SCH ×4 (09:02→23:02)
[2019-08-23] MEDS: LASIX PO SCH (09:02)
[2019-08-23] MEDS: ESTRACE PO SCH (09:02)
[2019-08-23] MEDS: LOVENOX SUBQ SCH (09:02)
[2019-08-23] MEDS: TRESIBA FLEXTOUCH U-200 SUBQ SCH (09:03)
--- NOTE | 2019-08-23 13:10 | NEPHROLOGY PROGRESS NOTE ---
DATE: 08/23/2019 Subjective: patient lying in bed awake watching TV. Denies any uremic complaints. Voices falling out of the bed yesterday. Objective: vitals temperature 97.4, pulse 82, respirations 14, blood pressure 104/61, O2 sat 100% on room air. General: middle-aged white female lying in bed and no acute distress. HEENT: normocephalic a traumatic. Pupils equal and reactive to light. Trachea midline. Mucous membranes dry. Skin: warm, dry, and intact, Neck: Supple, no JVD appreciated. Cardiovascular: regular rate and rhythm with no gallops or murmurs. Respiratory: clear lung sounds with equal excursion bilaterally. No crackles or wheezes noted. abdomen: soft, nontender, and nondistended. Bowel sounds present. : none observed. Extremities: no edema, clubbing, or cyanosis noted. Neurological: alert and oriented to person, place, and time. Labs: WBC 6.01, hemoglobin 9.4, hematocrit 27.6, platelet count to 42, sodium 121, potassium 4.7, chloride 87, carbon dioxide 22, anion gap 12, BUN 5, creatinine 0.6, calcium 7.6, albumin 3.0. Intake 1594, output 200. Impression: Hyponatremia. Sodium is 121 today. At bedside she had one empty Coke can and one empty coffee mug. We tightened up fluid restrictions to 1 L per day. Fluid volume. Euvolemic. Falls. Orthostatics checked. Patient was noted to be taking a home dose of Ativan as well as a hospital dose. The Ativan has been confiscated and put in the hospital safe until discharge. cc: MD Humberto Carrasco MD [facility]
[2019-08-23] MEDS: PRAVACHOL PO SCH (20:32)
[2019-08-23] MEDS: PROTONIX PO SCH (20:32)
[2019-08-23] MEDS: TRINTELLIX PO SCH (20:33)
[2019-08-23] MEDS: TORADOL IV PRN (21:24)
[2019-08-24 05:45] LABS: ESTIMATED GFR > 60
[2019-08-24 05:48] LABS: AGAP 8; ALB/GLOB RATIO 1.5; ALBUMIN 3.2 g/dL (3.5-5.0); ALKALINE PHOSPHATASE 57 U/L (32-104); BUN 5 mg/dL (8-22); CALCIUM 8.4 mg/dL (8.8-10.2); CHLORIDE 88 mmol/L (98-107); COSMO 248; CREATININE 0.7 mg/dL (0.5-0.9); GLUCOSE 194 mg/dL (70-104); GOT 11 U/L (10-30); GPT 11 U/L (10-36); SODIUM 122 mmol/L (136-145); TCO2 26 mmol/L (25-35); TOTAL BILIRUBIN 0.16 mg/dL (0.20-1.00); TOTAL PROTEIN 5.4 g/dL (6.3-8.3)
[2019-08-24] MEDS: HUMULIN R SUBQ SCH ×4 (06:09→23:15)
[2019-08-24] MEDS: SYNTHROID PO SCH (06:09)
--- NOTE | 2019-08-24 07:29 | PROGRESS NOTE ---
DATE: 08/24/2019 SUBJECTIVE: Ms. Noel is doing fair. The patient's sodium this morning was 122. Again, the patient claims she fell last night in the bathroom when she was trying to get up from the commode. According to the nurses, she was sitting on the floor. There was no major fall. Most of the report I am getting is the patient is comfortably sitting on the floor rather than a real fall. The patient does have problem with bipolar disorder and some behavioral issue. I did decrease her Depakote yesterday to twice a day. I repeated her CT scan yesterday, and it was negative for any major trauma. No typical chest pain or palpitations. Her cosyntropin test was appropriate. OBJECTIVE: Her vital signs as noted.Neck: Supple. No JVD. Lungs: Bilateral good air entry present. CVS: S1 and S2 heard. Abdomen: Soft and globular. Bowel sounds present. Extremities: No cyanosis or clubbing. No acute DVT. DOCUMENT IMAGING SPECIALIST: Alert and awake, able to move all 4 limbs. PROBLEMS: The patient's problems includes hyponatremia improving slowly. I decreased the Depakote to 500 mg twice a day. The patient does have seizure disorder. We did check the cause for her hyponatremia. So far, we could not find any other than the medication. We did decrease her amitriptyline, and now Depakote. The patient was seen by Dr. Jacobson. I am going to consult Dr. Jacobson to look for cause of her frequent falls. No recent seizure-type episode. 1. Hyponatremia. Dr. Russell is following patient with us. 2. Mood disorder and behavioral abnormality. 3. Diabetes mellitus. 4. Gastritis and reflux disease. This patient is very difficult to manage. I do not have any psych backup in the hospital. The patient is not ready to be discharged to psychiatric yet, but she will be definitely benefitted from inpatient rehab, which I did offer to the patient but she is declining. I am going to check vitamin B12 and folate. Also, the lipid panel. After reviewing the results, will make necessary recommendations. cc: MD Humberto Lam MD
[2019-08-24 07:45] LABS: CHOLESTEROL 132 mg/dL (0-200); HDL 66 mg/dL (45-65); LDL 50 mg/dL; TRIGLYCERIDES 78 mg/dL (35-135); VLDL 16 mg/dL
[2019-08-24] MEDS: DEPAKOTE PO SCH ×2 (08:33→20:18)
[2019-08-24] MEDS: LASIX PO SCH (08:34)
[2019-08-24] MEDS: ATIVAN PO SCH ×4 (08:34→20:20)
[2019-08-24] MEDS: SINGULAIR PO SCH (08:34)
[2019-08-24] MEDS: ESTRACE PO SCH (08:34)
[2019-08-24] MEDS: LOVENOX SUBQ SCH (08:34)
[2019-08-24] MEDS: TRESIBA FLEXTOUCH U-200 SUBQ SCH (08:34)
[2019-08-24] MEDS: FOLIC ACID PO SCH (10:39)
--- NOTE | 2019-08-24 19:46 | NEPHROLOGY PROGRESS NOTE ---
DATE: 08/24/2019 Subjective: patient lying in bed awake. Denies any uremic complaints. Voices falling again in the bathroom last night. Objective: vitals. Temperature 97.9, pulse 83, respirations 16, blood pressure 105/64, 02 sat 100% on room air. General: middle-aged white female lying in bed and no acute distress. HEENT: normocephalic a traumatic. Pupils equal and reactive to light. Trachea midline. Mucous membranes moist. Skin: warm, dry, and intact, Neck: Supple, no JVD appreciated. Cardiovascular: regular rate and rhythm with no gallops or murmurs. Respiratory: clear lung sounds with equal excursion bilaterally. No crackles or wheezes noted. abdomen: soft, nontender, and nondistended. Bowel sounds present. : none observed. Extremities: no edema, clubbing, or cyanosis noted. Neurological: alert and oriented to person, place, and time. Labs: sodium 122, potassium 4.0, chloride 88, carbon dioxide 26, anion gap eight, BUN five, creatinine 0.7, calcium 8.4, ammonia 56, total protein 5.4, albumin 3.2, intake 500, output 3000. Impression: Hyponatremia. Sodium is 122 today. Primary doctor decreased her Depakote dose yesterday. Continue free water restriction. Not a candidate for vaptan therapy. Fluid volume. Euvolemic. Falls. Patient was found sitting in the floor in the bathroom last night. No evidence of fall besides patients report. cc: MD Humberto Carrasco MD [facility]
[2019-08-24] MEDS: PRAVACHOL PO SCH (20:18)
[2019-08-24] MEDS: TRINTELLIX PO SCH (20:19)
[2019-08-24] MEDS: PROTONIX PO SCH (20:19)
[2019-08-24] MEDS: TYLENOL PO PRN (20:23)
[2019-08-25] MEDS ORDERED: INSULIN PEN NEEDLES ONE (04:02)
[2019-08-25 05:45] LABS: BASO# 0.01 X1000 (0.0-0.2); BASO% 0.2 % (0.0-0.8); EOS# 0.08 X1000 (0.0-0.7); EOS% 1.6 % (0.0-10.0); HEMATOCRIT 30.3 % (37.0-47.0); HEMOGLOBIN 9.9 g/dL (12.0-16.0); IMM GRAN# 0.02 X1000 (0.0-0.04); IMM GRAN% 0.4 % (0.0-0.5); LYMPH# 2.11 X1000 (1.2-3.4); MCH 28.9 PG (27-31); MCHC 32.7 g/dL (33-37); MCV 88.3 FL (81-99); MONO# 0.48 X1000 (0.11-0.59); MONO% 9.3 % (1.7-9.3); MPV 9.3 FL (7.4-10.4); NEUT# 2.45 X1000 (1.4-6.5); NEUT% 47.5 % (42.2-75.2); PLT 254 X1000 (130-400); RBC 3.43 XMIL (4.2-5.4); RDW 13.7 % (11.5-14.5); WBC 5.15 X1000 (4.8-10.8)
[2019-08-25] MEDS: HUMULIN R SUBQ SCH ×2 (06:12→11:21)
[2019-08-25] MEDS: SYNTHROID PO SCH (06:15)
--- NOTE | 2019-08-25 06:42 | PROGRESS NOTE ---
DATE: 08/25/2019 SUBJECTIVE: Ms. Noel is doing better. She did not have any fall yesterday. The patient was ambulating well with physical therapy. I did offer her inpatient rehab. The patient declined. No nausea or vomiting. At times, her blood pressure was low. No headache, no chest pain or palpitations. No runny nose, stuffy nose, sinus drainage. No seizure-type episode. Folic acid level was low. I supplemented folate. B12 was normal. Neurologist cannot see her till Wednesday. OBJECTIVE: Vital signs noted. Blood pressure at times low-normal. Neck is supple. No JVD.Lungs: Bilateral good air entry present. CVS: S1 and S2 heard. Abdomen: Soft, nontender. Bowel sounds present. CAD DRAFTSMAN: Alert, awake, able to move all 4 limbs. PROBLEMS: Include hyponatremia. Yesterday it was 122. I am going to recheck electrolytes today. Her CBC done today, hemoglobin 9.9, hematocrit 30.3, platelet count 254,000. Electrolyte results are pending. Her other problem, low-normal blood pressure. I discontinued her Lasix today. She does have bipolar disorder and depression, clinically doing well. Diabetes mellitus, blood sugar result reviewed which is satisfactory. I had lengthy discussion with patient about fluid restriction, fall precaution. I am going to check today's labs. Continue rest of the treatment. cc: MD Humberto Lam MD
[2019-08-25 06:49] LABS: ESTIMATED GFR > 60
[2019-08-25 06:52] LABS: AGAP 14; ALB/GLOB RATIO 1.5; ALBUMIN 3.4 g/dL (3.5-5.0); ALKALINE PHOSPHATASE 55 U/L (32-104); BUN 5 mg/dL (8-22); CALCIUM 8.4 mg/dL (8.8-10.2); CHLORIDE 85 mmol/L (98-107); COSMO 251; CREATININE 0.8 mg/dL (0.5-0.9); GLUCOSE 101 mg/dL (70-104); GOT 16 U/L (10-30); GPT 16 U/L (10-36); SODIUM 126 mmol/L (136-145); TCO2 27 mmol/L (25-35); TOTAL BILIRUBIN 0.19 mg/dL (0.20-1.00); TOTAL PROTEIN 5.7 g/dL (6.3-8.3)
[2019-08-25] MEDS: FOLIC ACID PO SCH (09:03)
[2019-08-25] MEDS: DEPAKOTE PO SCH (09:04)
[2019-08-25] MEDS: SINGULAIR PO SCH (09:04)
[2019-08-25] MEDS: TRESIBA FLEXTOUCH U-200 SUBQ SCH (09:04)
[2019-08-25] MEDS: LOVENOX SUBQ SCH (09:04)
[2019-08-25] MEDS: ESTRACE PO SCH (09:04)
[2019-08-25] MEDS: ATIVAN PO SCH (09:04)
[2019-08-25 12:12] VITALS: BP 121/77
--- NOTE | 2019-08-25 13:09 | NEPHROLOGY PROGRESS NOTE ---
DATE: 08/25/2019 SUBJECTIVE: No new falls. She is eating and drinking normally. No new complaints. OBJECTIVE: Vital Signs: Blood pressure 113/75, heart rate 67, respiration 18, afebrile. General: No acute distress. Skin: Warm and dry. Neck: Neck veins are not distended. Heart: Regular. No gallops. Lungs: Equal. No crackles. Abdomen: Soft. Extremities: No edema, clubbing or cyanosis. IMPRESSION AND PLAN: Hyponatremia. Multifactorial. Progressive improvement, 126 today. From my perspective, okay for discharge home. Continue free water restriction. We will be glad to see her as an outpatient if you desire. cc: MD Humberto Carrasco MD
--- NOTE | 2019-10-07 11:30 | DISCHARGE SUMMARY ---
ADMISSION DATE: 08/19/2019 DISCHARGE DATE: 08/25/2019 FINAL DISCHARGE DIAGNOSES: 1. Metabolic encephalopathy, hyponatremia. Rule out syndrome of inappropriate antidiuretic hormone hypersecretion. 2. Anxiety. 3. Diabetes mellitus. 4. Mood disorder. 5. Hyponatremia. 6. Bipolar disorder. 7. Behavioral abnormality. HISTORY AND HOSPITAL COURSE: Ms. Noel is a 49-year-old white female patient, who was visiting her mother in the hospital. The patient had a shaking episode, went to the emergency room. Initially they thought her blood sugar was dropping. The patient found to have a sodium of 120. The patient did have some altered mental status and they decided to admit the patient for further care. The patient does have a complex medical history in the form of depression, hypothyroidism, hyperlipidemia, diabetes, rhinitis, menopause, bipolar disorder, peripheral neuropathy, irritable bowel syndrome. The patient admitted to the hospital on telemetry. The patient was initially treated with gentle hydration. Nephrology consult obtained with Dr. Russell. Recommendation noted. The patient was treated with gentle hydration and Lasix. Her sodium improved to 122. The patient had a few episodes of fall where she was found to be on the floor without major injury. The patient did have behavior issue. Nurses noted she was taking her home medicine. While taking her home medicine to put it in the safe, they had hard time, they had to call security. Her clinical condition gradually improved. The patient was ambulating well. I offered her short-term rehab but patient declined. Overall her clinical condition stabilized and improved. I did discuss with Dr. Russell and she received maximum benefit of hospitalization and we decided to discharge her home. Her last sodium was 126, potassium was 4, chloride 85, hemoglobin 9.9, hematocrit 30.3, WBC count 5.15, platelet count 254,000. LFTs were benign. Vitamin B12 of 653, folate was 7.8. We did a cosyntropin test and it was not impressive. Overall discharge condition satisfactory. I told the patient to discuss with her psychiatrist to cut back her psychotropic medication. I already decrease her Depakote, restrict fluid intake, follow up with me as scheduled. Monitor Accu-Chek and blood pressure at home. In case of more distress, call us back or go to the emergency room. The patient had CT scan of the head done which was stable, no acute disease. cc: MD Humberto Lam MD
== END 2019-08-25 16:19 | disposition home or self-care (01) | DRG 640 ==
LOC: ED 13:38 → 1N 17:29
PROVIDERS: ADMIT Internal Medicine; ATTEND Internal Medicine

== ENCOUNTER 2019-12-20 14:17 | Observation (INO) ==
[2019-12-20 17:52] LABS: BASO# 0.02 X1000 (0.0-0.2); BASO% 0.3 % (0.0-0.8); EOS# 0.09 X1000 (0.0-0.7); EOS% 1.2 % (0.0-10.0); HEMATOCRIT 34.8 % (37.0-47.0); IMM GRAN# 0.02 X1000 (0.0-0.04); IMM GRAN% 0.3 % (0.0-0.5); LYMPH# 2.02 X1000 (1.2-3.4); LYMPH% 26.6 % (20.5-51.1); MCH 24.6 PG (27-31); MCHC 31.6 g/dL (33-37); MCV 77.7 FL (81-99); MONO# 0.44 X1000 (0.11-0.59); MONO% 5.8 % (1.7-9.3); NEUT% 65.8 % (42.2-75.2); PLT 289 X1000 (130-400); RBC 4.48 XMIL (4.2-5.4); RDW 16.1 % (11.5-14.5); WBC 7.59 X1000 (4.8-10.8)
[2019-12-20 18:10] LABS: AGAP 13; ALB/GLOB RATIO 1.5; ALBUMIN 3.8 g/dL (3.5-5.0); ALKALINE PHOSPHATASE 79 U/L (32-104); BUN 10 mg/dL (8-22); CHLORIDE 91 mmol/L (98-107); COSMO 264; CREATININE 0.6 mg/dL (0.5-0.9); ESTIMATED GFR > 60; GLUCOSE 236 mg/dL (70-104); GOT 21 U/L (10-30); GPT 17 U/L (10-36); POTASSIUM 4.1 mmol/L (3.5-5.1); SODIUM 128 mmol/L (136-145); TCO2 24 mmol/L (25-35); TOTAL BILIRUBIN 0.19 mg/dL (0.20-1.00); TOTAL PROTEIN 6.3 g/dL (6.3-8.3)
[2019-12-20] MEDS: NS 1,000 ML IV SCH (18:40)
[2019-12-20] MEDS ORDERED: TYLENOL PO PRN (18:43)
[2019-12-20] MEDS ORDERED: LINZESS PO PRN (18:45)
--- NOTE | 2019-12-20 19:30 | Diag Imaging Result Doc PS360 ---
EXAM: CHEST-2 VIEWS HISTORY: New Patient TECHNIQUE: Two views COMPARISON: 12/15/2019 FINDINGS: The lungs are well expanded. The heart is not enlarged. The vessels are not distended. There are no infiltrates. No pleural effusions. There has been surgery to the lower neck. IMPRESSION: No acute abnormality. Electronically signed by Doug Charlton 12/20/2019 7:28 PM
--- NOTE | 2019-12-20 20:30 | EKG Report ---
Test Performed on : 12/20/2019 5:46:31 PM Test Reason : New patient admit Blood Pressure : / mmHG Vent. Rate : 088 BPM Atrial Rate : 088 BPM P-R Int : 166 ms QRS Dur : 084 ms QT Int : 368 ms P-R-T Axes : 053 001 051 degrees QTc Int : 445 ms Normal sinus rhythm. Normal ECG When compared with ECG of 19-AUG-2019 18:19, No significant change was found Unconfirmed Result
[2019-12-20] MEDS ORDERED: ELAVIL PO SCH (21:00)
[2019-12-20] MEDS ORDERED: PRAVACHOL PO SCH (21:00)
[2019-12-20] MEDS ORDERED: TRINTELLIX PO SCH (21:00)
[2019-12-20 21:19] LABS: URINE SOURCE CLEAN CATCH
[2019-12-20 21:24] LABS: BILIRUBIN URINE NEGATIVE (NEGATIVE); BLOOD URINE NEGATIVE (NEGATIVE); COLOR YELLOW; GLUCOSE URINE 70 mg/dL (NEGATIVE); KETONE URINE TRACE mg/dL (NEGATIVE); LEUKOCYTES URINE NEGATIVE (NEGATIVE); NITRITE URINE NEGATIVE (NEGATIVE); PROTEIN URINE NEGATIVE (NEGATIVE); SP GRAVITY URINE 1.011; TURBIDITY URINE CLEAR (CLEAR); UROBILINOGEN URINE NORMAL (NORMAL)
[2019-12-20 21:25] LABS: UR EPITHELIAL CELLS <10 /HPF (<10); URINE BACTERIA NEGATIVE /HPF; URINE RBC <10 /HPF (<10); URINE WBC <10 /HPF (<10)
[2019-12-20] MEDS: PERCOCET-10 PO PRN (21:48)
[2019-12-20] MEDS: DEPAKOTE PO SCH (21:49)
[2019-12-20] MEDS: COZAAR PO SCH (21:49)
[2019-12-20] MEDS: ATIVAN PO SCH (21:49)
[2019-12-20 21:52] LABS: UR AMPHETAMINES QUAL NONE DETECTED (NONE DETECT); UR BARBITUATES QUAL NONE DETECTED (NONE DETECT); UR BENZODIAZEPIN QUAL NONE DETECTED (NONE DETECT); UR CANNABINOIDS QUAL NONE DETECTED (NONE DETECT); UR COCAINE QUAL NONE DETECTED (NONE DETECT); UR METHADONE QUAL PRESUMPTIVE POSITIVE (NONE DETECT); UR OPIATES QUAL NONE DETECTED (NONE DETECT); UR OXYCODONE QUAL PRESUMPTIVE POSITIVE (NONE DETECT); UR PCP QUAL NONE DETECTED (NONE DETECT)
[2019-12-20] MEDS: HUMALOG SUBQ SCH (22:02)
--- NOTE | 2019-12-20 22:38 | HISTORY AND PHYSICAL ---
CHIEF COMPLAINT: Weakness, hyponatremia. HISTORY OF PRESENT ILLNESS: Ms Noel, a 49-year-old, female patient, not doing well last many days. The patient claims she had dizziness, she was feeling unsteady. The patient had a fall on Wednesday at home, complaining of pain in the right hip. The patient blood pressure was high, I started her on Hyzaar. The patient's sodium dropped, I stopped diuretics, advised her to take losartan and started her on Norvasc. The patient claims she was feeling weak, at times dizzy. I checked her sodium twice, 1 time and it was 125, then it was 123. I advised patient to have fluid restriction. She called me Wednesday, she was not feeling well. I offered her hospitalization for observation, but the patient decided to wait until today. The patient claims she vomited once today. Occasional headache, mainly frontal. Her dizziness she means was vertigo, other times lightheadedness. No typical chest pain, occasional palpitation. Mild cough, no expectoration or hemoptysis. The patient had vague abdominal pain. No diarrhea, blood, or mucus in the stool. The patient claims to have diarrhea off and on. The patient found to have UTI. When I checked her labs on Wednesday, started her on Macrobid. The patient does have low back pain. The patient had back surgery done and she is under care of neurosurgeon. At times, numbness, tingling in the hand and the leg. Does have history of mood disorder, being followed up by psychiatrist. Patient is on multiple angiolytic and psychotropic medications. I had multiple time discussion with the patient to discuss with her psychiatrist to cut back her psychiatric medication. The patient does have weakness all over. No focal weakness. The patient does feel depressed and stressed at times, but no suicidal or homicidal ideation. ALLERGIES: Patient is allergic to Cipro. PAST MEDICAL HISTORY: 1. Hypertension. 2. Diabetes mellitus. 3. Hypothyroidism. 4. Gastritis. 5. Low back pain. 6. History of hyponatremia. 7. Mood disorder. 8. Seizure disorder. 9. Menopause. 10. Constipation and irritable bowel syndrome. 11. Peripheral neuropathy. 12. Gastroparesis. 13. Hyperlipidemia. PAST SURGICAL HISTORY: 1. Recently had back surgery. 2. The patient had surgery for carpal tunnel syndrome. 3. Cervical spine surgery. 4. Cholecystectomy. 5. Appendectomy. 6. Hysterectomy. 7. Bilateral knee arthroscopy. 8. Back surgery. 9. Right wrist surgery. PERSONAL HISTORY: , lives with her . Nonsmoker. Denied alcohol or substance abuse. REVIEW OF SYSTEMS: As per HPI. Otherwise unobtainable. FAMILY HISTORY: Significant for sister with diabetes, chronic kidney disease and its complications. Her father had a stroke, diabetes and hypertension. Mother with diabetes, COPD, osteoporosis. Other sister with hypertension and diabetes. PHYSICAL EXAMINATION: GENERAL: Middle-aged white female patient in mild distress. VITAL SIGNS: Blood pressure 151/83, pulse 101, respiration 18, temperature 98 degrees. SKIN: Normal turgor. No rash or petechiae. HEENT: Head atraumatic, normocephalic. [place] conjunctivae. Anicteric sclerae. Extraocular muscle movement normal. Fundus cannot be penetrated. Good oral hygiene. No tonsillopharyngeal congestion or exudate. Ears and nose benign. NECK: Supple. No JVD, thyromegaly or lymphadenopathy. CHEST: Bilateral air entry present. Few basal crepitations. No rales. CARDIOVASCULAR: S1 and S2 heard. No gallop or thrill. ABDOMEN: Soft, globular. Bowel sounds present. Mild epigastric tenderness. No guarding or rigidity. EXTREMITIES: No cyanosis, clubbing. No acute DVT. HUMAN RESOURCES RECRUITER: Alert, awake, able to move all 4 limbs. Vague tenderness lumbosacral spine. Movement of right hip minimally painful. LABORATORY DATA: Done today, hemoglobin 11 hematocrit 34.8, WBC count 7.59, platelet count 289,000. Her sodium was 128, potassium 4.1. I did a chest x-ray, which was unremarkable. Hip x- ray result is pending. ASSESSMENT: 1. Dizziness. 2. Hyponatremia. 3. Recent urinary tract infection. 4. Fall and right hip pain. 5. Diabetes mellitus. 6. Hypothyroidism. PLAN: The patient had multiple complaints. I am going to check appropriate labs. Close observation, neuro checks, telemetry monitoring. After reviewing labs, will make further recommendations. Fall precaution. Overall plan discussed at length with the patient. I had lengthy discussion with the patient, again, about cutting back her psychiatric medication. Fall precaution. cc: Nate Samuel MD
[2019-12-21] MEDS: NS 1,000 ML IV SCH ×2 (05:54→12:07)
[2019-12-21] MEDS ORDERED: LOVENOX SUBQ SCH (06:00)
[2019-12-21] MEDS: HUMALOG SUBQ SCH ×3 (06:31→16:06)
[2019-12-21] MEDS: PERCOCET-10 PO PRN ×2 (06:32→15:17)
[2019-12-21] MEDS ORDERED: SYNTHROID PO SCH (07:00)
[2019-12-21] MEDS ORDERED: PRILOSEC PO SCH (07:00)
--- NOTE | 2019-12-21 08:15 | Diag Imaging Result Doc PS360 ---
EXAM: XRAY HIP UNILATERAL LT HISTORY: New patient TECHNIQUE: Two views COMPARISON: None. FINDINGS: No fracture. No dislocation. IMPRESSION: No acute bony injury. If clinical suspicion persists a CT may be beneficial. Electronically signed by Doug Charlton 12/21/2019 8:12 AM
[2019-12-21] MEDS: COZAAR PO SCH (08:42)
[2019-12-21] MEDS: DEPAKOTE PO SCH (08:43)
[2019-12-21] MEDS: ATIVAN PO SCH (08:43)
[2019-12-21] MEDS ORDERED: SINGULAIR PO SCH (09:00)
[2019-12-21] MEDS ORDERED: MOBIC PO SCH (09:00)
[2019-12-21] MEDS ORDERED: ESTRACE PO SCH (09:00)
[2019-12-21] MEDS ORDERED: KLOR-CON PO SCH (09:00)
[2019-12-21] MEDS ORDERED: LANTUS INSULIN SUBQ SCH (09:00)
[2019-12-21 11:42] LABS: BASO# 0.02 X1000 (0.0-0.2); BASO% 0.4 % (0.0-0.8); EOS# 0.11 X1000 (0.0-0.7); EOS% 2.2 % (0.0-10.0); HEMATOCRIT 30.8 % (37.0-47.0); HEMOGLOBIN 9.8 g/dL (12.0-16.0); LYMPH# 2.28 X1000 (1.2-3.4); LYMPH% 46.5 % (20.5-51.1); MCH 24.8 PG (27-31); MCHC 31.8 g/dL (33-37); MONO# 0.34 X1000 (0.11-0.59); MONO% 6.9 % (1.7-9.3); MPV 9.7 FL (7.4-10.4); NEUT# 2.15 X1000 (1.4-6.5); PLT 256 X1000 (130-400); RBC 3.95 XMIL (4.2-5.4); RDW 16.1 % (11.5-14.5)
[2019-12-21 12:04] LABS: AGAP 9; ALB/GLOB RATIO 1.5; ALBUMIN 3.3 g/dL (3.5-5.0); ALKALINE PHOSPHATASE 64 U/L (32-104); BUN 7 mg/dL (8-22); CALCIUM 7.9 mg/dL (8.8-10.2); CHLORIDE 96 mmol/L (98-107); COSMO 268; CREATININE 0.7 mg/dL (0.5-0.9); ESTIMATED GFR > 60; GLUCOSE 130 mg/dL (70-104); GOT 21 U/L (10-30); GPT 17 U/L (10-36); POTASSIUM 4.2 mmol/L (3.5-5.1); SODIUM 134 mmol/L (136-145); TCO2 29 mmol/L (25-35); TOTAL BILIRUBIN 0.23 mg/dL (0.20-1.00); TOTAL PROTEIN 5.5 g/dL (6.3-8.3)
[2019-12-21 15:45] VITALS: BP 131/73
--- NOTE | 2019-12-21 15:47 | Diag Imaging Result Doc PS360 ---
EXAM: CT PELVIS W/O CONTRAST HISTORY: left hip pain TECHNIQUE: CT bony pelvis without contrast COMPARISON: None. FINDINGS: Neither hip is dislocated. No fracture to either hip. No fracture to the pelvis. No widening of the pubic symphysis or sacroiliac joints.. Neither hip is widened. No bony remodeling. Prominent stool in colon. The uterus is been removed. IMPRESSION: No acute bony injury. There is constipation. This exam was performed using automated exposure control, adjustment of mA or kV according to patient size, and/or use of iterative reconstruction technique. Electronically signed by Doug Charlton 12/21/2019 3:44 PM
--- NOTE | 2019-12-22 18:28 | DISCHARGE SUMMARY ---
ADMISSION DATE: 12/20/2019 DISCHARGE DATE: 12/21/2019 FINAL DISCHARGE DIAGNOSES: 1. Dizziness. Fall and right hip pain. 2. Hyponatremia improved low back pain. 3. Diabetes mellitus. 4. Hypothyroidism. 5. Mood disorder. 6. Anxiety. 7. Hyperlipidemia. 8. Recently urinary tract infection. HOSPITAL COURSE: Ms Noel is a 49-year-old, white female patient, not doing well the last many days. The patient had multiple vague complaints, complaining of feeling dizzy, lightheaded at times, confusion and headache. The patient had a fall at home on Wednesday. Recently found to have UTI and also hyponatremia. The patient was complaining of having seizures at home. The patient had a few visits to the office. I evaluated patient, treated her UTI, changed her blood pressure medicine. Discontinue hydrochlorothiazide. The patient claims she is not getting better. She was complaining most of the time I evaluated the patient in the office and decided to admit her for observation. The rest of the information from admission history and physical. I placed patient on telemetry, did admission labs and workup. I continued her home medicine. Gave her IV fluid. In the hospital the patient did fairly well. She was complaining of pain in the right hip and lower back. No fever or chills. She denied any seizure. Her vital signs remained stable. Oral intake was fair. I did an x-ray on the right hip which was negative. Because of persistent pain, I did CT scan of the pelvis and there was no acute bony injury. The patient did have some constipation. The patient was able to walk freely. Oral intake was fair. Repeat sodium was 134. Urinalysis did not show UTI. The patient seems clinically stable to be discharged. Her urine drug screen results reviewed and discussed with the patient. I also did a chest x-ray and it was benign and I decided to discharge patient home. I again had lengthy discussion with the patient to cut back her anxiolytics and antipsychotic medicine after discussing with her psychiatrist. Patient is on multiple medications which I explained to her could be the reason for her fall, which I told her multiple times in the past. Advised to monitor blood pressure and Accu-Chek at home. I evaluated patient in the morning and again in the afternoon. DISCHARGE PHYSICAL EXAMINATION: Vital signs: Noted. Neck: Supple. No JVD. Lungs: Clear. Heart: S1 and S2 heard. Abdomen: Soft, globular. Bowel sounds present. Extremities: No cyanosis, clubbing, edema. Central Nervous System: Alert, awake able to move all 4 limbs. DISCHARGE INSTRUCTIONS: I also explained patient not to give her prescription medicine oxycodone or anxiolytic to anybody else and it is her responsibility to keep it safe and protected so nobody can take it. Follow up with me in 1 week. In case of more distress, call us back or go to the emergency room. cc: Nate Samuel MD
== END 2019-12-21 19:12 | disposition home or self-care (01) ==
LOC: DIRADM → 3N 16:44
PROVIDERS: ADMIT Internal Medicine; ATTEND Internal Medicine